=== PATIENT | female | born 1960 | race Caucasian/White ===

== ENCOUNTER 2016-10-16 17:24 | Inpatient (IN) | payer MEDICAID, OTHER ==
[~2016-10-16] VITALS: Ht 172.7 cm; Wt 67.3 kg
[~2016-10-16 17:24] MED LIST: BUSP10TA PO; TRIL600T PO; ZIPR1CAP10 PO
[2016-10-16] MEDS ORDERED: LORazepam 2 MG/ML VIAL IM ONE (17:45)
[2016-10-16] MEDS ORDERED: diphenhydrAMINE HCL 50 MG/ML VIAL IM ONE (17:45)
[2016-10-16] MEDS ORDERED: HALOPERIDOL LACTATE 5 MG/ML AMP IM ONE (17:45)
--- NOTE | 2016-10-16 17:45 | PD ---
HPI Chief Complaint: Quinn act Time Seen by Provider: 17:36 Travel History International Travel<30 days: No Contact w/Intl Traveler<30days: No Traveled to known affect area: No History of Present Illness HPI The patient is a 55-year-old female who presents emergency Department as a Quinn act. According to the police affidavit the patient has a history of schizophrenia, delayed mental development, and other psychiatric disorders. According to the police report the patient refused to take her medication stating that "it boland ". The patient is complaining of burning to the right arm in the lower extremities which is been going on 3-4 weeks. The patient is a poor historian, continues to the yells "I don't want to see a nurse ", and "get out of here ". The patient refuses to answer any questions in regards to the ongoing medical problems including the burning to the legs, burning to the right arm, and past medical history. No further information is obtainable. PFSH Past Medical History Cardiac Catheterization: No Diminished Hearing: No Past Surgical History Abdominal Aneurysm Repair: No Appendectomy: No Cholecystectomy: No Coronary Artery Bypass Graft: No Coronary Stent: No Joint Replacement: No Mastectomy: No Prostatectomy: No Tonsillectomy: No Tympanostomy Tube: No Valve Replacement: No Social History Alcohol Use: No Tobacco Use: No Substance Use: No Allergies-Medications (Allergen,Severity, Reaction): Coded Allergies: Penicillin (Verified Allergy, Severe, 10/16/16) Sulfa (Verified Allergy, Severe, 10/16/16) Bactrim (Unverified Allergy, Mild, 10/16/16) Lactose (Unverified Allergy, Mild, 10/16/16) Reported Meds & Prescriptions Reported Meds & Active Scripts Active Clindamycin (Clindamycin HCl) 300 Mg Cap 300 Mg PO Q6H 10 Days Reported Buspirone (Buspirone HCl) 10 Mg Tab 10 Mg PO TID Ziprasidone 60 Mg Cap 60 Mg PO BID Trileptal (Oxcarbazepine) 600 Mg Tab 600 Mg PO BID Review of Systems ROS Limitations: Clinical Condition, Combative, Psychotic Except as stated in HPI: all other systems reviewed are Neg Physical Exam Exam Limitations: Clinical Condition, Combative, Psychotic Narrative GENERAL: Awake, alert, somewhat psychotic 55 year-old female who refuses to answer questions. SKIN: Focused skin assessment warm/dry. The patient does have a slightly elevated blanching rash to the anterior aspect the legs bilaterally, no obvious rash to the right upper extremity. HEAD: Atraumatic. Normocephalic. EYES: Pupils equal and round. No scleral icterus. No injection or drainage. ENT: No nasal bleeding or discharge. Mucous membranes pink and moist. NECK: Trachea midline. No JVD. CARDIOVASCULAR: Regular rate and rhythm. No murmur appreciated. RESPIRATORY: No accessory muscle use. Clear to auscultation. Breath sounds equal bilaterally. GASTROINTESTINAL: Abdomen soft, non-tender, nondistended. No rebound tenderness. MUSCULOSKELETAL: No obvious deformities. No clubbing. No cyanosis. No edema. Blanching rash to the anterior aspect the legs bilaterally. The right axilla has an enlarged swollen area that is erythematous and fluctuant, tender, draining purulent drainage. Culture was obtained. NEUROLOGICAL: Awake and alert. No obvious cranial nerve deficits. Motor grossly within normal limits. Normal speech. PSYCHIATRIC: Agitated, continuously yells out "I don't want to see a nurse ", and "get away from me ". Data Data Last Documented VS Vital Signs Date Time Temp Pulse Resp B/P Pulse Ox O2 Delivery O2 Flow Rate FiO2 10/17/16 06:30 86 18 109/63 97 Room Air 10/16/16 17:47 98.6 Orders Diphenhydramine Inj (Benadryl Inj) (10/16/16 17:45) Lorazepam Inj (Ativan Inj) (10/16/16 17:45) Haloperidol Inj (Haldol Inj) (10/16/16 17:45) Complete Blood Count With Diff (10/16/16 17:38) Comprehensive Metabolic Panel (10/16/16 17:38) Urinalysis - C+S If Indicated (10/16/16 17:38) Psych Screen (10/16/16 17:38) Drug Screen, Random Urine (10/16/16 17:38) Restraints Non-Violent YOAV.Q3H (10/16/16 17:39) Clindamycin (Cleocin) (10/16/16 18:45) Wound Culture And Gram Stain (10/16/16 18:41) Labs Laboratory Tests Test 10/16/16 18:12 White Blood Count 6.8 TH/MM3 Red Blood Count 3.81 MIL/MM3 Hemoglobin 11.3 GM/DL Hematocrit 33.2 % Mean Corpuscular Volume 87.2 FL Mean Corpuscular Hemoglobin 29.6 PG Mean Corpuscular Hemoglobin 34.0 % Concent Red Cell Distribution Width 14.8 % Platelet Count 234 TH/MM3 Mean Platelet Volume 7.4 FL Neutrophils (%) (Auto) 85.0 % Lymphocytes (%) (Auto) 8.5 % Monocytes (%) (Auto) 5.7 % Eosinophils (%) (Auto) 0.2 % Basophils (%) (Auto) 0.6 % Neutrophils # (Auto) 5.7 TH/MM3 Lymphocytes # (Auto) 0.6 TH/MM3 Monocytes # (Auto) 0.4 TH/MM3 Eosinophils # (Auto) 0.0 TH/MM3 Basophils # (Auto) 0.0 TH/MM3 CBC Comment DIFF FINAL Differential Comment Sodium Level 137 MEQ/L Potassium Level 3.5 MEQ/L Chloride Level 100 MEQ/L Carbon Dioxide Level 26.4 MEQ/L Anion Gap 11 MEQ/L Blood Urea Nitrogen 14 MG/DL Creatinine 0.82 MG/DL Estimat Glomerular Filtration 72 ML/MIN Rate Random Glucose 120 MG/DL Calcium Level 8.8 MG/DL Total Bilirubin 0.4 MG/DL Aspartate Amino Transf 29 U/L (AST/SGOT) Alanine Aminotransferase 32 U/L (ALT/SGPT) Alkaline Phosphatase 128 U/L Total Protein 6.7 GM/DL Albumin 3.5 GM/DL MDM Medical Decision Making Medical Screen Exam Complete: Yes Emergency Medical Condition: Yes Medical Record Reviewed: Yes Interpretation(s) Laboratory Tests Test 10/16/16 18:12 White Blood Count 6.8 TH/MM3 Red Blood Count 3.81 MIL/MM3 Hemoglobin 11.3 GM/DL Hematocrit 33.2 % Mean Corpuscular Volume 87.2 FL Mean Corpuscular Hemoglobin 29.6 PG Mean Corpuscular Hemoglobin 34.0 % Concent Red Cell Distribution Width 14.8 % Platelet Count 234 TH/MM3 Mean Platelet Volume 7.4 FL Neutrophils (%) (Auto) 85.0 % Lymphocytes (%) (Auto) 8.5 % Monocytes (%) (Auto) 5.7 % Eosinophils (%) (Auto) 0.2 % Basophils (%) (Auto) 0.6 % Neutrophils # (Auto) 5.7 TH/MM3 Lymphocytes # (Auto) 0.6 TH/MM3 Monocytes # (Auto) 0.4 TH/MM3 Eosinophils # (Auto) 0.0 TH/MM3 Basophils # (Auto) 0.0 TH/MM3 CBC Comment DIFF FINAL Differential Comment Sodium Level 137 MEQ/L Potassium Level 3.5 MEQ/L Chloride Level 100 MEQ/L Carbon Dioxide Level 26.4 MEQ/L Anion Gap 11 MEQ/L Blood Urea Nitrogen 14 MG/DL Creatinine 0.82 MG/DL Estimat Glomerular Filtration 72 ML/MIN Rate Random Glucose 120 MG/DL Calcium Level 8.8 MG/DL Total Bilirubin 0.4 MG/DL Aspartate Amino Transf 29 U/L (AST/SGOT) Alanine Aminotransferase 32 U/L (ALT/SGPT) Alkaline Phosphatase 128 U/L Total Protein 6.7 GM/DL Albumin 3.5 GM/DL Differential Diagnosis Differential diagnosis includes psychosis, schizoaffective disorder, schizophrenia, allergic reaction, urticaria, noncompliance, mood disorder, delirium, UTI. Narrative Course The patient was uncooperative with examination and history, was yelling continuously in the room, the patient required sedation. Therefore, the patient was sedated with Ativan 2 mg IM, Haldol 5 mg IM, Benadryl 25 mg IM. Labs were then drawn and sent. The abscess to right axilla is draining, culture was obtained and sent to lab. The patient was administered clindamycin as she is allergic to Bactrim and penicillin. Psychiatric evaluation was ordered. Labs are unremarkable. Disposition as per psych. Diagnosis Primary Impression: Psychosis Qualified Code: F29 - Psychosis, unspecified psychosis type Additional Impression: Abscess of right axilla Med/Other Pt SpecificInfo: Prescription(s) given Scripts Clindamycin 300 Mg [id number] Mg PO Q6H 10 Days Ref 0 Prov:Martin Stokes MD 10/16/16 Condition: Stable Martin Stokes MD October 16, 2016 17:44
[2016-10-16 17:47] VITALS: BP 131/91; PULSE 115; RESP 30; TEMP 98.6; O2SAT 99
[2016-10-16 18:17] VITALS: PULSE 85; RESP 24; O2SAT 95
[2016-10-16] MEDS ORDERED: CLIN1CAP6 PO (18:43)
[2016-10-16] MEDS ORDERED: CLINDAMYCIN 150 MG CAP PO ONE (18:45)
[2016-10-16 18:46] LABS: AUTOMATED NEUTROPHIL # 5.7 TH/MM3 (1.8-7.7); BASOPHIL % 0.6 % (0.0-2.0); EOSINOPHIL % 0.2 % (0.0-4.0); HEMATOCRIT 33.2 % (35.0-46.0); HEMO FLAGS DIFF FINAL; LYMPH % 8.5 % (9.0-44.0); LYMPHOCYTE # 0.6 TH/MM3 (1.0-4.8); MEAN CELL VOLUME 87.2 FL (80.0-100.0); MEAN CORPUSCULAR HEMOGLOBIN 29.6 PG (27.0-34.0); MONO % 5.7 % (0.0-8.0); PLATELET COUNT 234 TH/MM3 (150-450); RED BLOOD COUNT 3.81 MIL/MM3 (4.00-5.30); RED CELL DISTRIBUTION WIDTH 14.8 % (11.6-17.2); WHITE BLOOD COUNT 6.8 TH/MM3 (4.0-11.0)
[2016-10-16 18:57] LABS: ANION GAP 11 MEQ/L (5-15); AST (GOT) 29 U/L (15-37); BICARBONATE 26.4 MEQ/L (21.0-32.0); BLOOD UREA NITROGEN 14 MG/DL (7-18); CHLORIDE 100 MEQ/L (98-107); GLOMERULAR FILTRATION RATE 72 ML/MIN (>89); POTASSIUM 3.5 MEQ/L (3.5-5.1); SODIUM (NA) 137 MEQ/L (136-145)
[2016-10-16 19:00] LABS: ALKALINE PHOSPHATASE 128 U/L (45-117); ALT (GPT) 32 U/L (10-53); TOTAL BILIRUBIN ADULT 0.4 MG/DL (0.2-1.0)
[2016-10-16 20:13] VITALS: BP 117/61; PULSE 80; RESP 22; O2SAT 10; O2SAT 100
[2016-10-17 06:30] VITALS: BP 109/63; PULSE 86; RESP 18; O2SAT 97
[2016-10-17 07:30] VITALS: BP 110/68; PULSE 77; RESP 16; O2SAT 97
[2016-10-17] MEDS ORDERED: HALOPERIDOL LACTATE 5 MG/ML AMP ONE (11:23)
[2016-10-17] MEDS ORDERED: LORazepam 2 MG/ML VIAL ONE (11:24)
[2016-10-17] MEDS ORDERED: HALOPERIDOL LACTATE 5 MG/ML AMP IM ONE (11:45)
[2016-10-17] MEDS ORDERED: LORazepam 2 MG/ML VIAL IM ONE (11:45)
[2016-10-17] MEDS ORDERED: CLINDAMYCIN 150 MG CAP PO SCH (12:00)
--- NOTE | 2016-10-17 15:45 | PD ---
History of Present Illness Chief Complaint: Psychiatric Symptoms Time Seen by Provider: 15:30 Travel History International Travel<30 Days: No Contact w/Intl Traveler<30days: No Known affected area: No Legal Status Legal Status: Quinn Act Quinn Act Signed By: Alcides Lemus History of Present Illness: History of Present Illness HPI The patient is a 55-year-old female with hx of schizoaffective disorder bipolar type and intellectual disability who presents emergency Department as a Quinn act. According to the affidavit the police were called by the patient's niece reporting that she was having a psychotic episode. When police arrived the patient was screaming and was refusing to take her medication and it is alleged that she became physically aggressive. Upon arrival to the ED she was complaining of burning to the right arm in the lower extremities which is been going on 3-4 weeks. The patient is a poor historian, continues to the yells "I don't want to see a nurse ", and "get out of here ". The patient refuses to answer any questions in regards to the ongoing medical problems including the burning to the legs, burning to the right arm, and past medical history. The patient was moved to [facility] and she was screaming very loudly " I.m not crazy you cock sucker". She continued to remain agitated but was able to deescalate with verbal intervention. She continued to presents intermittent agitation with screaming very loudly, threatening to hit staff as well as threatening to hit her head against the wall. The patient required ETO in order to prevent harm to self and others. She remains impulsive and agitated. She has not been able to provide any clinical information due to her degree of agitation. Staff have contacted her niece who reports that she has been agitated and that the neighbors have been calling the police frequently. Ms Rodriguez was last psychiatrically hospitalized at [facility] on September 20, 2016 and at that time was reporting that she wanted to stab herself. She has had previous admissions to [facility] and the last one was in June 2016 under the care of Dr. Jiang. [facility] Past Medical History Bipolar Disorder: Yes Anxiety: Yes Depression: Yes Cardiac Catheterization: No Diminished Hearing: No Immunizations Current: No Schizophrenia: Yes Tetanus Vaccination: Unknown ?: Unknown LMP: unk Past Surgical History Abdominal Aneurysm Repair: No Appendectomy: No Cholecystectomy: No Coronary Artery Bypass Graft: No Coronary Stent: No Hysterectomy: Yes Joint Replacement: No Mastectomy: No Prostatectomy: No Tonsillectomy: No Tympanostomy Tube: No Valve Replacement: No Psychiatric History Psychiatric History Hx Psychiatric Treatment: PATIENT HAS A LONG HISTORY OF SCHIZOAFFECTIVE DISORDER AND INTELLUCTUAL DISABILITY. HER LAST HOSPITALIZATION WAS ON September AND SHE WAS SENT TO THE [facility]. SHE WAS ADMITTED HERE Jun TO Jun. History of Inpatient Treatment: Yes Guns or firearms in home: No Social History Single female . Lives with her niece. Hx Alcohol Use: No (wont answer) Hx Tobacco Use: No (wont answer) Hx Substance Use: No Hx of Substance Use Treatment: No Family Psychiatric History Unable to obtain Allergies-Medications (Allergen,Severity, Reaction): Coded Allergies: Penicillin (Verified Allergy, Severe, 10/16/16) Sulfa (Verified Allergy, Severe, 10/16/16) Bactrim (Unverified Allergy, Mild, 10/16/16) Lactose (Unverified Allergy, Mild, 10/16/16) Reported Meds & Prescriptions Reported Meds & Active Scripts Active Clindamycin (Clindamycin HCl) 300 Mg Cap 300 Mg PO Q6H 10 Days Reported Buspirone (Buspirone HCl) 10 Mg Tab 10 Mg PO TID Ziprasidone 60 Mg Cap 80 Mg PO BID Trileptal (Oxcarbazepine) 600 Mg Tab 1,200 Mg PO BID Review of Systems ROS Limitations: Uncooperative, Combative Exam Alert: Yes [place]: Person, Place Mood: Agitated Affect: Labile, Other (angry) Speech: Clear (mostly threatmming and use of profanity) Eye Contact: Indirect Memory Intact: Comment (unable to test) Hallucinations: Other (unable to determine) Delusions: Yes Suicidal: Ideation (unable to determine) Homicidal: Ideation (unable to determine) Insight/Judgement poor. impaired. MDM Medical Decision Making Medical Record Reviewed: Yes Assessment/Plan 55 year old female with history of schizoaffective disorder bipolar type and intellectual disability who is under a BA. She has been agitated and threatning since her arrival. Has been refusing her medications and treatment. At this time the patient meets criteria for increased in level of care on inpatient psychiatric unit. She will remain on BA. Orders Diphenhydramine Inj (Benadryl Inj) (10/16/16 17:45) Lorazepam Inj (Ativan Inj) (10/16/16 17:45) Haloperidol Inj (Haldol Inj) (10/16/16 17:45) Complete Blood Count With Diff (10/16/16 17:38) Comprehensive Metabolic Panel (10/16/16 17:38) Urinalysis - C+S If Indicated (10/16/16 17:38) Psych Screen (10/16/16 17:38) Drug Screen, Random Urine (10/16/16 17:38) Restraints Non-Violent YOAV.Q3H (10/16/16 17:39) Clindamycin (Cleocin) (10/16/16 18:45) Wound Culture And Gram Stain (10/16/16 18:41) Diet Heart Healthy (10/17/16 Lunch) Haloperidol Inj (Haldol Inj) (10/17/16 11:23) Lorazepam Inj (Ativan Inj) (10/17/16 11:24) Lorazepam Inj (Ativan Inj) (10/17/16 11:45) Haloperidol Inj (Haldol Inj) (10/17/16 11:45) Clindamycin (Cleocin) (10/17/16 12:00) Results Vital Signs Date Time Temp Pulse Resp B/P Pulse Ox O2 Delivery O2 Flow Rate FiO2 10/17/16 07:30 77 16 110/68 97 10/17/16 06:30 86 18 109/63 97 Room Air 10/16/16 20:13 80 22 117/61 100 Room Air 10/16/16 18:17 85 24 95 Room Air 10/16/16 17:47 98.6 115 30 131/91 99 Room Air Laboratory Tests Test 10/16/16 18:12 White Blood Count 6.8 Red Blood Count 3.81 Hemoglobin 11.3 Hematocrit 33.2 Mean Corpuscular Volume 87.2 Mean Corpuscular Hemoglobin 29.6 Mean Corpuscular Hemoglobin 34.0 Concent Red Cell Distribution Width 14.8 Platelet Count 234 Mean Platelet Volume 7.4 Neutrophils (%) (Auto) 85.0 Lymphocytes (%) (Auto) 8.5 Monocytes (%) (Auto) 5.7 Eosinophils (%) (Auto) 0.2 Basophils (%) (Auto) 0.6 Neutrophils # (Auto) 5.7 Lymphocytes # (Auto) 0.6 Monocytes # (Auto) 0.4 Eosinophils # (Auto) 0.0 Basophils # (Auto) 0.0 CBC Comment DIFF FINAL Differential Comment Sodium Level 137 Potassium Level 3.5 Chloride Level 100 Carbon Dioxide Level 26.4 Anion Gap 11 Blood Urea Nitrogen 14 Creatinine 0.82 Estimat Glomerular Filtration 72 Rate Random Glucose 120 Calcium Level 8.8 Total Bilirubin 0.4 Aspartate Amino Transf 29 (AST/SGOT) Alanine Aminotransferase 32 (ALT/SGPT) Alkaline Phosphatase 128 Total Protein 6.7 Albumin 3.5 Date/Time Procedure Status Source Growth 10/16/16 18:48 Gram Stain - Final Resulted Wound Arm 10/16/16 18:48 Wound Culture - Preliminary Resulted Staph Sp Coagulase Positive Diagnosis Primary Impression: Abscess of right axilla Additional Impression: Schizoaffective disorder, bipolar type Admitting Information Admitting Physician Requests: Admit (Dr. Mccollum) Prescriptions Clindamycin 300 Mg Pod746 Mg PO Q6H 10 Days Ref 0 Prov:Martin Stokes MD 10/16/16 Condition: Stable Problem Qualifiers Jasmyn Ventura October 17, 2016 15:45
[2016-10-17] MEDS ORDERED: ALUMINUM/MAGNESIUM/SIMETH 30 ML CUP PO PRN (16:00)
[2016-10-17] MEDS ORDERED: MAGNESIUM HYDROXIDE SUSP 30 ML CUP PO PRN (16:00)
[2016-10-17 17:22] VITALS: BP 133/63; PULSE 62; RESP 18; TEMP 97.9
[2016-10-17] MEDS: busPIRone HCL 10 MG TAB PO SCH ×2 (18:30→18:33)
[2016-10-17] MEDS: CLINDAMYCIN 150 MG CAP PO SCH ×3 (18:30→22:00)
[2016-10-17] MEDS: OXcarbazepine 600 MG TAB PO SCH (20:39)
[2016-10-17] MEDS: ZIPRASIDONE HCL 80 MG CAP PO SCH (20:39)
[2016-10-18] MEDS: CLINDAMYCIN 150 MG CAP PO SCH ×4 (04:00→21:16)
[2016-10-18 06:32] VITALS: BP 125/58; PULSE 59; RESP 16; TEMP 97.6; O2SAT 99
[2016-10-18] MEDS: ACETAMINOPHEN 325 MG TAB PO PRN ×2 (08:20→21:20)
[2016-10-18] MEDS: busPIRone HCL 10 MG TAB PO SCH ×3 (09:01→18:06)
[2016-10-18] MEDS: ZIPRASIDONE HCL 80 MG CAP PO SCH ×2 (09:02→21:16)
[2016-10-18] MEDS: OXcarbazepine 600 MG TAB PO SCH ×2 (09:02→21:16)
--- NOTE | 2016-10-18 09:04 | HHI.HP ---
Provisional Diagnosis Admission Date October 17, 2016 at 15:59 Cisco I. 1. Adjustment disorder with disturbance of emotions and conduct Cisco II. 1. Intellectual disability Cisco V. GAF is 35 presently Certification of Person's Competence To Provide Express and Informed Consent I have personally examined Yue Rodriguez , a person being served at [facility] on, October 18, 2016 09:04. Express and informed consent means consent voluntarily given in writing, by a competent person, after sufficient explanation and disclosure of the subject matter involved to enable the person to make a knowing and willful decision without any element of force, fraud, deceit, duress, or other form of constraint or coercion. This person is 18 years of age or older, is not now known to be incompetent to consent to treatment with a guardian advocate, and does not have a health care surrogate or proxy currently making medical treatment decisions. I have found this person to be one of the following: [] Competent to provide express and informed consent, as defined above, for voluntary admission to this facility and is competent to provide express and informed consent for treatment. He/she has the consistent capacity to make well reasoned, willful, and knowing decisions concerning his or her medical or mental health treatment. The person fully and consistently understands the purpose of the admission for examination/placement and is fully capable of personally exercising all rights assured [place] [x] Incompetent to provide express and informed consent to voluntary admission, and this is incompetent to provide express and informed consent to treatment. The person must be transferred to involuntary status and a petition for a guardian advocate filed with the Circuit Court. [] Refusing to provide express and informed consent to voluntary admission but is competent to provide express and informed consent for treatment. The person must be discharged or transferred to involuntary status. Form shall be completed within 24 hours of a person's arrival at the receiving facility and filed in the clinical record of each person: 1. Admitted on a voluntary basis 2. Permitted to provide express and informed consent to his/her own treatment 3. Allowed to transfer from involuntary to voluntary status 4. Prior to permitting a person to consent to his or her own treatment after having been previously found incompetent to consent to treatment. History of Present Illness Capacity: Lacks Capacity HPI Ms. Rodriguez is a 55-year-old female with a history of behavioral disturbance in the setting of intellectual disability who presents under a Quinn act from law enforcement alleging medication nonadherence and violent behavior. Reviewing the electronic medical record, I note that the patient was admitted most recently, chiefly under my care, in June of this year. Patient seen and examined with counselor and nurse. Chart reviewed. Case discussed with nursing staff who reports that the patient slept overnight. On my examination this morning, I find the patient initially sleeping. Upon awakening, she presents as quite dramatic and childlike. She says "everything hurts" including her stomach, back and legs. She becomes quite loud and agitated on this point but eventually can be consoled and provides a little bit of history. Affect is generally dysphoric. She denies any suicidal or homicidal thoughts. She denies any audiovisual hallucinations. She denies any issues with low mood, anger or anxiety. She denies any nausea or dysuria. Psychiatric interview is somewhat limited because of her intellectual disability in acute distress. Past psychiatric history: Patient maintains that she has been adherent with her psychotropic medications. In addition to the above diagnoses, she also has a history of schizoaffective disorder, although this may have been diagnosed to Ensure the patient's behavioral disturbance in the setting of her intellectual disability. She sees "some lady" for psychiatric care. She denies any psychiatric admissions since coming here in June. She denies any history of suicide attempts. Family history: Patient denies any family history of mental illness. Chemical dependency history: Patient denies any abuse of drugs or alcohol. Social history: Patient lives with her niece Sun. She is unsure of her level of education. She is single with no children. She denies any legal issues. I did leave a voicemail for patient's niece, Sun Rodriguez, requesting a call back. Review of Systems ROS Limitations: Poor Historian Except as stated in HPI: all other systems reviewed are Neg Past Psych History Psychological trauma history No reported trauma history Violence risk - others (6 mos) Indeterminate. Violence alleged in Quinn act. Patient somewhat agitated now. Violence risk - self (6 mos) Indeterminate. Substance Abuse History Drugs/Alcohol past 12 months See above Past Family Social History Coded Allergies: Penicillin (Verified Allergy, Severe, 10/16/16) Sulfa (Verified Allergy, Severe, 10/16/16) Bactrim (Unverified Allergy, Mild, 10/16/16) Lactose (Unverified Allergy, Mild, 10/16/16) Past Medical History See electronic medical record Active Scripts Clindamycin 300 Mg [id number] Mg PO Q6H 10 Days Ref 0 Prov:Martin Stokes MD 10/16/16 Reported Medications Buspirone 10 Mg Tab10 Mg PO TID Ref 0 10/08/16 Ziprasidone 60 Mg Cap80 Mg PO BID #60 CAP Ref 0 10/08/16 Oxcarbazepine (Trileptal)600 Mg Tab1,200 Mg PO BID #60 TAB Ref 0 10/08/16 Current Medications Medications (Trade) Dose Ordered Sig/Eloise Route Start Time Stop Time Status Last Admin (Tylenol) 650 mg Q4H PRN PO 10/17/16 16:00 10/18/16 08:20 (Milk Of Magnesia Liq) 30 ml DAILY PRN PO 10/17/16 16:00 (Mag-Al Plus Susp Liq) 30 ml Q6H PRN PO 10/17/16 16:00 10/18/16 08:19 (Buspar) 10 mg TID PO 10/17/16 18:00 10/18/16 09:01 (Cleocin) 300 mg Q6H PO 10/17/16 16:00 10/17/16 22:00 (Trileptal) 1,200 mg BID PO 10/17/16 21:00 10/18/16 09:02 (Geodon) 80 mg BID PO 10/17/16 21:00 10/18/16 09:02 Family History See above Social History See above Patient's Strengths (min. 2) In monitored setting. Verbally fluent. Physical Exam Physical exam completed by ED provider. A my examination today, patient appears to be in no severe physical distress. She is up and walking around the unit with a steady gait. No motor abnormalities noticed. Labs and vital signs reviewed: Vital Signs Vital Signs Date Time Temp Pulse Resp B/P Pulse Ox O2 Delivery O2 Flow Rate FiO2 10/18/16 09:02 18 10/18/16 06:32 97.6 59 125/58 99 10/17/16 06:30 Room Air Lab Results Item Value Date Time White Blood Count 6.8 TH/MM3 10/16/16 1812 Hemoglobin 11.3 GM/DL L 10/16/16 181 Platelet Count 234 TH/MM3 10/16/16 181 Sodium Level 137 MEQ/L 10/16/16 181 Potassium Level 3.5 MEQ/L 10/16/16 181 Chloride Level 100 MEQ/L 10/16/16 181 Carbon Dioxide Level 26.4 MEQ/L 10/16/16 181 Blood Urea Nitrogen 14 MG/DL 10/16/16 181 Creatinine 0.82 MG/DL 10/16/16 181 Random Glucose 120 MG/DL H 10/16/16 1812 Aspartate Amino Transf (AST/SGOT) 29 U/L 10/16/16 181 Alanine Aminotransferase (ALT/SGPT) 32 U/L 10/16/16 181 Alkaline Phosphatase 128 U/L H 10/16/161811 Anemia is improved versus historical baseline. Mental Status Examination Patient is in hospital gown. She is somewhat disheveled. She is awake and alert and oriented to person and hospital. No motor abnormalities noted. Speech is somewhat rambling. Language and fund of knowledge seem reduced. Mood is dysphoric and affect is restricted. Thought process perseverative on physical distress. No al delusions. Denies audiovisual hallucinations. Denies suicidal or homicidal ideation. Insight and judgment are poor. Assessment & Plan Problem List: (1) Adjustment disorder ICD Code: F43.20 (2) Intellectual disability ICD Code: F79 Assessment & Plan This is a 55-year-old female with psychiatric history as detailed above who presents under a Quinn act. On my evaluation today, the patient presents as quite childlike and irritable. She articulates physical complaints for which I will consult the hospitalist. Patient has chronic issues related to behavioral disturbance in the setting of intellectual disability. In light of her ongoing issues with agitation, I will admit the patient to the inpatient psychiatric unit for safety, observation and stabilization. Admit inpatient. Involuntary status. I've completed first opinion. Consult for second opinion. Request healthcare surrogate and guardian advocate. Medications appear to have changed significantly since she was discharged from the inpatient psychiatric unit last time. She is now on BuSpar and her Zyprexa has been discontinued. Her Trileptal has also been titrated. I will continue psychotropics as ordered: Trileptal 1200 mg twice daily, Geodon 80 mg twice daily, and BuSpar 10 mg 3 times daily. The patient does have an abscess in her right axilla for which I will continue clindamycin. Haldol as needed for agitation, Ativan as needed for anxiety, Cogentin as needed for EPS, Ambien as needed for sleep. Consult to the hospitalist. Vitals every shift. Counselor to see and obtain collateral. Disposition planning. Estimated length of stay: 7-9 days. Discharge Planning Pending psychiatric stabilization. Request HC Surrog/Guard Advoc?: Yes Problem Qualifiers (1) Adjustment disorder: Qualified Code: F43.25 - Adjustment disorder with mixed disturbance of emotions and conduct Igor Lawrence MD October 18, 2016 09:04
[2016-10-18] MEDS ORDERED: HALOPERIDOL LACTATE 5 MG/ML AMP IM PRN (09:45)
[2016-10-18] MEDS ORDERED: BENZTROPINE MESYLATE 2 MG/2 ML VIAL IM PRN (09:45)
[2016-10-18] MEDS ORDERED: HALOPERIDOL 5 MG TAB PO PRN (09:45)
[2016-10-18] MEDS ORDERED: ZOLPIDEM TARTRATE 5 MG TAB PO PRN (09:45)
[2016-10-18] MEDS ORDERED: LORazepam 1 MG TAB PO PRN (09:45)
[2016-10-18] MEDS ORDERED: BENZTROPINE MESYLATE 1 MG TAB PO PRN (09:45)
[2016-10-18] MEDS ORDERED: LORazepam 2 MG/ML VIAL IM PRN (09:45)
[2016-10-18 10:13] LABS: ANION GAP 10 MEQ/L (5-15); BICARBONATE 27.3 MEQ/L (21.0-32.0); BLOOD UREA NITROGEN 13 MG/DL (7-18); CHLORIDE 96 MEQ/L (98-107); GLOMERULAR FILTRATION RATE 103 ML/MIN (>89); LDL CHOLESTEROL 68 MG/DL (0-99); SODIUM (NA) 133 MEQ/L (136-145)
[2016-10-18 12:21] LABS: HEMOGLOBIN A1a 1.2 %; HEMOGLOBIN A1b 1.4 %; HEMOGLOBIN Ao 85.9 %; HEMOGLOBIN LA1C 1.9 %; HEMOGLOBIN P3 3.7 %
--- NOTE | 2016-10-18 14:30 | PD.CONS ---
HPI Service [facility] Hospitalists Consult Requested By Psychiatric service Reason for Consult Medical management Primary Care Physician Unknown Diagnoses: History of Present Illness This is a 55-year-old female with a past medical history significant for schizoaffective disorder bipolar type and intellectual disability who was brought to the emergency room under Quinn act due to psychotic episode and was admitted to the psychiatric unit. Hospitalist services have been requested for medical management. Patient seen and examined today. Patient reports 6 week history of tender swollen mass in right axilla that she states nothing has helped. In the ED, wound culture was obtained which was positive for MRSA sensitive to clindamycin. Patient was put on clindamycin in the ED but has refused that medication. Patient also complains of stomach pain and back pain for the past week. She denies any associated fever, chills, nausea, vomiting, diarrhea or constipation. Patient also denies any chest pain or shortness of breath. Review of Systems Except as stated in HPI: all other systems reviewed are Neg Past Family Social History Allergies: Coded Allergies: Penicillin (Verified Allergy, Severe, 10/16/16) Sulfa (Verified Allergy, Severe, 10/16/16) Bactrim (Unverified Allergy, Mild, 10/16/16) Lactose (Unverified Allergy, Mild, 10/16/16) Past Medical History Schizoaffective disorder bipolar type Intellectual disability Depression Anxiety Diabetes, diet-controlled Past Surgical History Gallstone removal Hysterectomy Reported Medications Clindamycin 300 Mg [id number] Mg PO Q6H 10 Days Ref 0 Prov:Martin Stokes MD Buspirone 10 Mg Tab10 Mg PO TID Ref 0 10/08/16 Ziprasidone 60 Mg Cap80 Mg PO BID #60 CAP Ref 0 10/08/16 Oxcarbazepine (Trileptal)600 Mg Tab1,200 Mg PO BID #60 TAB Ref 0 10/08/16 Active Ordered Medications Current Medications Medications (Trade) Dose Ordered Sig/Eloise Route Start Time Stop Time Status Last Admin (Tylenol) 650 mg Q4H PRN PO 10/17/16 16:00 10/18/16 08:20 (Milk Of Magnesia Liq) 30 ml DAILY PRN PO 10/17/16 16:00 (Mag-Al Plus Susp Liq) 30 ml Q6H PRN PO 10/17/16 16:00 10/18/16 08:19 (Buspar) 10 mg TID PO 10/17/16 18:00 10/18/16 14:12 (Cleocin) 300 mg Q6H PO 10/17/16 16:00 10/18/16 14:12 (Trileptal) 1,200 mg BID PO 10/17/16 21:00 10/18/16 09:02 (Geodon) 80 mg BID PO 10/17/16 21:00 10/18/16 09:02 (Haldol) 5 mg Q6H PRN PO 10/18/16 09:45 (Haldol Inj) 5 mg Q6H PRN IM 10/18/16 09:45 (Ativan) 1 mg Q6H PRN PO 10/18/16 09:45 (Ativan Inj) 1 mg Q6H PRN IM 10/18/16 09:45 (Cogentin) 1 mg Q12HR PRN PO 10/18/16 09:45 (Cogentin Inj) 1 mg Q12HR PRN IM 10/18/16 09:45 (Ambien) 5 mg HS PRN PO 10/18/16 09:45 Family History Mother, , [facility] Social History Patient denies any tobacco use, alcohol consumption or illicit drug use. Patient resides with her niece. Physical Exam Vital Signs Vital Signs Date Time Temp Pulse Resp B/P Pulse Ox O2 Delivery O2 Flow Rate FiO2 10/18/16 09:02 18 10/18/16 06:32 97.6 59 16 125/58 99 10/17/16 17:22 97.9 62 18 133/63 Physical Exam GENERAL: This is a well-nourished, well-developed patient, in no apparent distress. Intellectual disability. SKIN: (+)tender raised mass in right axilla. Scant amount of drainage appreciated. Cool and dry. HEAD: Atraumatic. Normocephalic. No temporal or scalp tenderness. EYES: Pupils equal round and reactive. Extraocular motions intact. No scleral icterus. No injection or drainage. ENT: Nose without bleeding, purulent drainage or septal hematoma. NECK: Trachea midline. Supple, nontender, no meningeal signs. CARDIOVASCULAR: Regular rate and rhythm without murmurs, gallops, or rubs. RESPIRATORY: Clear to auscultation. Breath sounds equal bilaterally. No wheezes , rales, or rhonchi. GASTROINTESTINAL: Abdomen soft, non-tender, nondistended. No hepato-splenomegaly , or palpable masses. No guarding. MUSCULOSKELETAL: Extremities without clubbing, cyanosis, or edema. No joint tenderness, effusion, or edema noted. No calf tenderness. NEUROLOGICAL: Awake and alert. Able to move all extremities. No focal neurologic findings appreciated. Laboratory Laboratory Tests Test 10/18/16 09:00 Sodium Level 133 Potassium Level 4.0 Chloride Level 96 Carbon Dioxide Level 27.3 Anion Gap 10 Blood Urea Nitrogen 13 Creatinine 0.60 Estimat Glomerular Filtration 103 Rate Random Glucose 90 Calcium Level 8.6 Triglycerides Level 63 Cholesterol Level 139 LDL Cholesterol 68 HDL Cholesterol 58.0 Cholesterol/HDL Ratio 2.39 Date/Time Procedure Status Source Growth 10/16/16 18:48 Gram Stain - Final Complete Wound Arm 10/16/16 18:48 Wound Culture - Final Complete S. Aureus Mrsa Result Diagram: 10/16/16 1812 10/18/16 0900 Assessment and Plan Assessment and Plan 55-year-old female with a past medical history significant for schizoaffective disorder bipolar type and intellectual disability who was brought to the emergency room under Quinn act due to psychotic episode and was admitted to the psychiatric unit. Hospitalist services have been requested for medical management. //Schizoaffective disorder bipolar type with acute psychotic episode - Management per psychiatric team //Abscess right axilla, MRSA - Discussed with patient taking her antibiotic medication but patient continues to refuse and just reiterates over and over that nothing works. - Continue clindamycin for 10 day course. Add Probiotic BID. - Patient is agreeable to trying something topical - Mupirocin 2% cream and Lidocaine gel ordered - Monitor //Abdominal and back pain - previous UA was unremarkable except for moderate blood - repeat UA - Chemistry panel reviewed and is unremarkable except for mildly decreased sodium of 133 and slightly elevated Alk phos 128 - will consider imaging studies if patient remains symptomatic - Unable to elicit any tenderness on examination today. Patient is afebrile. Patient has witnessed eating on and off the bed as well as walking around the unit without any noticeable difficulty. - Will continue to monitor. //Anemia, normocytic - mild - repeat CBC to monitor //Hyponatremia - mild - am labs to monitor //DVT prophylaxis - patient is ambulatory Written by Lindsay Duff PA-C acting as scribe for Dr. Powell on 10/18/16 at 14 :30. This note was transcribed by scribe Lindsay Duff PA-C. I, Dr. Walter Powell personally performed the history, physical exam, and medical decision making; and confirmed the accuracy of the information in the transcribed note. Authenticated by Dr. Walter Powell on 10/18/16 at 23:27. Lindsay Duff October 18, 2016 14:30 Ilya Powell DO October 18, 2016 23:29
[2016-10-18] MEDS ORDERED: LIDOCAINE 2% JELLY 30 ML TUBE TOPICAL PRN (14:45)
[2016-10-18 18:02] VITALS: BP 132/63; PULSE 69; RESP 17; TEMP 97.3; O2SAT 98
[2016-10-18] MEDS: LACTOBACILLUS ACIDOPHILUS TAB PO SCH (21:16)
[2016-10-18] MEDS: MUPIROCIN 2% CREAM 15 GM TOPICAL SCH (21:16)
[2016-10-19] MEDS: CLINDAMYCIN 150 MG CAP PO SCH ×2 (04:00→08:06)
[2016-10-19 05:58] VITALS: BP 114/60; PULSE 65; RESP 18; TEMP 98.1; O2SAT 98
[2016-10-19] MEDS: busPIRone HCL 10 MG TAB PO SCH (08:05)
[2016-10-19] MEDS: ZIPRASIDONE HCL 80 MG CAP PO SCH (08:05)
[2016-10-19] MEDS: MUPIROCIN 2% CREAM 15 GM TOPICAL SCH (08:06)
[2016-10-19] MEDS: OXcarbazepine 600 MG TAB PO SCH (08:06)
[2016-10-19] MEDS: ACETAMINOPHEN 325 MG TAB PO PRN (08:20)
[2016-10-19] MEDS: LACTOBACILLUS ACIDOPHILUS TAB PO SCH (08:53)
[2016-10-19 09:10] VITALS: RESP 18
[2016-10-19 09:10] LABS: AUTOMATED NEUTROPHIL # 2.4 TH/MM3 (1.8-7.7); BASOPHIL % 1.3 % (0.0-2.0); EOSINOPHIL # 0.2 TH/MM3 (0-0.4); EOSINOPHIL % 5.2 % (0.0-4.0); HEMATOCRIT 35.4 % (35.0-46.0); HEMO FLAGS DIFF FINAL; LYMPH % 17.3 % (9.0-44.0); LYMPHOCYTE # 0.6 TH/MM3 (1.0-4.8); MEAN CELL VOLUME 87.1 FL (80.0-100.0); MEAN CORPUSCULAR HEMOGLOBIN 28.8 PG (27.0-34.0); MEAN CORPUSCULAR HGB CONC 33.1 % (32.0-36.0); MONO % 5.8 % (0.0-8.0); NEUT % 70.4 % (16.0-70.0); PLATELET COUNT 272 TH/MM3 (150-450); RED BLOOD COUNT 4.07 MIL/MM3 (4.00-5.30); RED CELL DISTRIBUTION WIDTH 14.2 % (11.6-17.2); WHITE BLOOD COUNT 3.3 TH/MM3 (4.0-11.0)
[2016-10-19 09:44] LABS: BICARBONATE 26.7 MEQ/L (21.0-32.0); POTASSIUM 4.5 MEQ/L (3.5-5.1)
[2016-10-19] MEDS ORDERED: SODIUM CHLOR 0.9% 1000 ML INJ 1,000 ML IV SCH ×2 (10:45→12:00)
[2016-10-19] MEDS ORDERED: ACETAMINOPHEN 325 MG TAB PO PRN (10:45)
[2016-10-19] MEDS ORDERED: NALOXONE HCL 0.4 MG/ML AMP IV PRN (10:45)
[2016-10-19] MEDS ORDERED: SODIUM CHLORIDE 0.9% FLUSH 10 ML FLUSH IV FLUSH PRN (10:45)
[2016-10-19] MEDS ORDERED: ONDANSETRON HCL 4 MG/2 ML VIAL IVP PRN (10:45)
[2016-10-19] MEDS ORDERED: ENOXAPARIN SODIUM 40 MG/0.4 ML SYRINGE SQ SCH (11:00)
[2016-10-19] MEDS ORDERED: VANCOMYCIN INJ 1,000 MG in SODIUM CHLOR 0.9% 250 ML INJ 250 ML IV SCH (11:15)
[2016-10-19] MEDS ORDERED: Vancomycin Consult Pharmacy 1 EA OTHER SCH (11:15)
--- NOTE | 2016-10-19 11:41 | HHI.DS ---
Psychiatry Discharge Summary Inpatient Psychiatric care?: Yes Advance Directive: No Reason Not Provided: Due to Patient Condition Mental Health AdvanceDirective: No Health Care Proxy: No Admission Admission Date October 17, 2016 at 15:59 Admission Diagnosis: (1) Adjustment disorder ICD Code: F43.20 (2) Intellectual disability ICD Code: F79 Brief History Ms. Rodriguez is a 55-year-old female with a history of behavioral disturbance in the setting of intellectual disability who presents under a Quinn act from law enforcement alleging medication nonadherence and violent behavior. Reviewing the electronic medical record, I note that the patient was admitted most recently, chiefly under my care, in June of this year. Patient seen and examined with counselor and nurse. Chart reviewed. Case discussed with nursing staff who reports that the patient slept overnight. On my examination this morning, I find the patient initially sleeping. Upon awakening, she presents as quite dramatic and childlike. She says "everything hurts" including her stomach, back and legs. She becomes quite loud and agitated on this point but eventually can be consoled and provides a little bit of history. Affect is generally dysphoric. She denies any suicidal or homicidal thoughts. She denies any audiovisual hallucinations. She denies any issues with low mood, anger or anxiety. She denies any nausea or dysuria. Psychiatric interview is somewhat limited because of her intellectual disability in acute distress. Past psychiatric history: Patient maintains that she has been adherent with her psychotropic medications. In addition to the above diagnoses, she also has a history of schizoaffective disorder, although this may have been diagnosed to Ensure the patient's behavioral disturbance in the setting of her intellectual disability. She sees "some lady" for psychiatric care. She denies any psychiatric admissions since coming here in June. She denies any history of suicide attempts. Family history: Patient denies any family history of mental illness. Chemical dependency history: Patient denies any abuse of drugs or alcohol. Social history: Patient lives with her niece Sun. She is unsure of her level of education. She is single with no children. She denies any legal issues. I did leave a voicemail for patient's niece, Sun Rodriguez, requesting a call back. Tobacco Use In Past 30 Days: Refused To Answer Alcohol Use: Never Hospital Course Patient was admitted to a locked, inpatient psychiatric unit. Appropriate precautions were in place throughout patient's hospital stay. Patient was seen and examined on the unit by psychiatry. A general medical consultation was obtained. Patient developed nausea and vomiting and was found to be significantly hyponatremic at the beginning of her hospital stay, and the hospitalist sap consultant recommended transfer to the medical floor for further management of this issue. Patient discharged from inpatient psychiatry in order to transfer to the medical floor. Results Blood Pressure 114 / 60 Vital Signs Date Time Temp Pulse Resp B/P Pulse Ox O2 Delivery O2 Flow Rate FiO2 10/19/16 09:10 18 10/19/16 05:58 98.1 65 114/60 98 10/17/16 06:30 Room Air Laboratory Tests Test 10/16/16 10/18/16 10/19/16 18:12 09:00 08:32 Estimat Glomerular Filtration 72 ML/MIN (>89) Rate Random Glucose 120 MG/DL 110 MG/DL (74-106) (74-106) Alkaline Phosphatase 128 U/L (45-117) Red Blood Count 3.81 MIL/MM3 (4.00-5.30) Hemoglobin 11.3 GM/DL (11.6-15.3) Hematocrit 33.2 % (35.0-46.0) Neutrophils (%) (Auto) 85.0 % 70.4 % (16.0-70.0) (16.0-70.0) Lymphocytes (%) (Auto) 8.5 % (9.0-44.0) Lymphocytes # (Auto) 0.6 TH/MM3 0.6 TH/MM3 (1.0-4.8) (1.0-4.8) Sodium Level 133 MEQ/L 124 MEQ/L (136-145) (136-145) Chloride Level 96 MEQ/L 88 MEQ/L (98-107) (98-107) White Blood Count 3.3 TH/MM3 (4.0-11.0) Eosinophils (%) (Auto) 5.2 % (0.0-4.0) Calcium Level 8.4 MG/DL (8.5-10.1) Laboratory Results Test 10/18/16 09:00 Hemoglobin A1c 5.5 % (4.3-6.0) Triglycerides Level 63 MG/DL (42-150) Cholesterol Level 139 MG/DL (120-200) LDL Cholesterol 68 MG/DL (0-99) HDL Cholesterol 58.0 MG/DL (40.0-60.0) Summary of Procedures None done Imaging None done Pending results at discharge: No Medications # of Antipsychotic meds at D/C: 1 Approp Antipsych med options 1 - Minimum of three failed multiple trials of monotherapy. 2 - Documented plan to taper to monotherapy due to previous use of multiple meds OR cross-taper in progress at D/C. 3 - Documentation of augmentation of Clozapine. 4 - Justification other than those listed in allowable values 1-3, document here : Discharge Discharge Date: October 19, 2016 Discharge Diagnosis: (1) Adjustment disorder Diagnosis: Principal ICD Code: F43.20 (2) Intellectual disability Diagnosis: Secondary ICD Code: F79 Mental Status Exam at Disch See progress note from 10/19 for MSE. Pt Condition on Discharge: Guarded Discharge Disposition: Disch to Another Hospital Discharge Instructions Diet Instructions: As Tolerated, No Restrictions Activities you can perform: Weight Bearing as Windy Scheduled Appointment: transfer to medical floor Discharge Time <= 30 minutes Discharge/Advance Care Plan Health Problems: (1) Adjustment disorder (2) Intellectual disability Goals to promote your health * To prevent worsening of your condition and complications * To maintain your health at the optimal level Directions to meet your goals Take your medications as prescribed Follow your dietary instruction Follow activity as directed Keep your appointments as scheduled Take your immunizations and boosters as scheduled If your symptoms worsen call your PCP, if no PCP go to Urgent Care Center or Emergency Room For 06/01 questions related to your inpatient stay or results of tests pending at discharge, please contact Dr. Igor Lawrence at Smoking is Dangerous to Your Health. Avoid second hand smoking Problem Qualifiers (1) Adjustment disorder: Qualified Code: F43.25 - Adjustment disorder with mixed disturbance of emotions and conduct Igor Lawrence MD October 19, 2016 11:41
[2016-10-19] MEDS ORDERED: VANCOMYCIN 1,500 MG/NS 500 ML IV SCH ×2 (13:00)
--- NOTE | 2016-10-19 15:56 | HHI.PYPN ---
Subjective Remarks This is a request for second opinion. Patient was seen, admission note reviewed. Patient was admitted for violent and disorganized behavior. She was admitted to psychiatry and subsequently transferred to medicine for hyponatremia. She has been compliant with her medications. Per nursing, no behavioral outbursts Objective Alert: Yes [place]: Person, Place Mood: Anxious Affect: Blunted Memory Intact: Comment (unable to test) Hallucinations: Auditory (denies) Delusions: Yes Delusion Type: Other (none elicited) Suicidal: Ideation (denies) Homicidal: Ideation (denies) Insight/Judgment poor Labs Test 10/19/16 08:32 White Blood Count 3.3 TH/MM3 Red Blood Count 4.07 MIL/MM3 Hemoglobin 11.7 GM/DL Hematocrit 35.4 % Mean Corpuscular Volume 87.1 FL Mean Corpuscular Hemoglobin 28.8 PG Mean Corpuscular Hemoglobin 33.1 % Concent Red Cell Distribution Width 14.2 % Platelet Count 272 TH/MM3 Mean Platelet Volume 7.2 FL Neutrophils (%) (Auto) 70.4 % Lymphocytes (%) (Auto) 17.3 % Monocytes (%) (Auto) 5.8 % Eosinophils (%) (Auto) 5.2 % Basophils (%) (Auto) 1.3 % Neutrophils # (Auto) 2.4 TH/MM3 Lymphocytes # (Auto) 0.6 TH/MM3 Monocytes # (Auto) 0.2 TH/MM3 Eosinophils # (Auto) 0.2 TH/MM3 Basophils # (Auto) 0.0 TH/MM3 CBC Comment DIFF FINAL Differential Comment Sodium Level 124 MEQ/L Potassium Level 4.5 MEQ/L Chloride Level 88 MEQ/L Carbon Dioxide Level 26.7 MEQ/L Anion Gap 9 MEQ/L Blood Urea Nitrogen 9 MG/DL Creatinine 0.57 MG/DL Estimat Glomerular Filtration 109 ML/MIN Rate Random Glucose 110 MG/DL Calcium Level 8.4 MG/DL Vitamin B12 Level 541 PG/ML Folate 15.1 NG/ML Date/Time Procedure Status Source Growth 10/16/16 18:48 Gram Stain - Final Complete Wound Arm 10/16/16 18:48 Wound Culture - Final Complete S. Aureus Mrsa Vitals/IOs Vital Signs Date Time Temp Pulse Resp B/P Pulse Ox O2 Delivery O2 Flow Rate FiO2 10/19/16 09:10 18 10/19/16 05:58 98.1 65 114/60 98 10/17/16 06:30 Room Air Assessment & Plan Problem List: (1) Adjustment disorder ICD Code: F43.20 (2) Intellectual disability ICD Code: F79 Assessment & Plan I agree with the first opinion to continue petition. Criteria include disorganized and combative behavior Justification for Cont. Inpt. Patient will decompensate in a less restrictive setting Request HC Surrog/Guard Advoc?: Yes Problem Qualifiers (1) Adjustment disorder: Qualified Code: F43.25 - Adjustment disorder with mixed disturbance of emotions and conduct Josesito Salgado DO October 19, 2016 15:56
[2016-10-19] MEDS ORDERED: SODIUM CHLORIDE 0.9% FLUSH 10 ML FLUSH IV FLUSH SCH (21:00)
[2016-10-21] MEDS ORDERED: PHARMACY ORDERED LAB ONE (00:45)
== END 2016-10-19 12:45 | disposition short-term general hospital (02) | DRG 882 ==
LOC: NEPE 17:24 → NEDA 10-17 15:59 → H270 10-17 16:45
PROVIDERS: ADMIT Psychiatry & Neurology Psychiatry; ATTEND Psychiatry & Neurology Psychiatry
DX: F43.25 Adjustment disorder with mixed disturbance of emotions and conduct (principal); E87.1 Hypo-osmolality and hyponatremia; F25.0 Schizoaffective disorder, bipolar type; E11.9 Type 2 diabetes mellitus without complications; L02.411 Cutaneous abscess of right axilla; D64.9 Anemia, unspecified; F79 Unspecified intellectual disabilities; Z91.14 Patient's other noncompliance with medication regimen
CPT/HCPCS: 80048; 80053; 80061; 82607; 82746; 83036; 85025; 86403; 87070; 87186; 87205; 96372; J1200; J1630; J2060

== ENCOUNTER 2016-10-19 13:00 | Inpatient (IN) | payer OTHER ==
[~2016-10-19] VITALS: Ht 165.1 cm; Wt 68.5 kg
[2016-10-19 13:00] VITALS: BP 150/72; PULSE 80; RESP 16; TEMP 97.6; O2SAT 100
[~2016-10-19 13:00] MED LIST changes: +CLIN1CAP6 PO
[2016-10-19] MEDS ORDERED: SODIUM CHLOR 0.9% 1000 ML INJ 1,000 ML IV SCH (13:54)
[2016-10-19] MEDS ORDERED: VANCOMYCIN INJ 1,000 MG in SODIUM CHLOR 0.9% 250 ML INJ 250 ML IV SCH (14:00)
[2016-10-19] MEDS ORDERED: Vancomycin Consult Pharmacy 1 EA OTHER SCH (14:00)
[2016-10-19] MEDS ORDERED: SODIUM CHLORIDE 0.9% FLUSH 10 ML FLUSH IV FLUSH PRN (14:00)
[2016-10-19] MEDS ORDERED: NALOXONE HCL 0.4 MG/ML AMP IV PRN (14:00)
--- NOTE | 2016-10-19 14:28 | HHI.HP ---
HPI Service [facility] Primary Care Physician Nessa Huber MD Admission Diagnosis Diagnoses: Chief Complaint: Hyponatremia Nausea/vomiting Abdominal pain Travel History International Travel<30 Days: No Contact w/Intl Traveler <30 Da: No Traveled to Known Affected Are: No History of Present Illness This is a 55-year-old female with a past medical history significant for schizoaffective disorder bipolar type and intellectual disability who was brought to the emergency room under Quinn act due to psychotic episode and was admitted to the psychiatric unit. Hospitalist services were requested for medical management. Patient reports 6 week history of tender swollen mass in right axilla that she states nothing has helped. In the ED, wound culture was obtained which was positive for MRSA and was started on Clindamycin which cultures showed sensitivity to. Patient complains of abdominal pain with nausea and vomiting. Per nursing staff, patient vomited 2 times today as well as twice yesterday. She denies any associated fever, chills, nausea, vomiting, diarrhea or constipation. Patient also denies any chest pain or shortness of breath. Labs today were significant for a critical sodium level of 124. She was also noted to have a drop in white count to 3.3 today. Patient is to be discharged from psychiatry admitted to medical floor. Review of Systems Except as stated in HPI: all other systems reviewed are Neg Past Family Social History Past Medical History Schizoaffective disorder bipolar type Intellectual disability Depression Anxiety Diabetes, diet-controlled Past Surgical History Gallstone removal Hysterectomy Reported Medications Clindamycin 300 Mg [id number] Mg PO Q6H 10 Days Ref 0 Prov:Martin Stokes MD Buspirone 10 Mg Tab10 Mg PO TID Ref 0 10/08/16 Ziprasidone 60 Mg Cap80 Mg PO BID #60 CAP Ref 0 10/08/16 Oxcarbazepine (Trileptal)600 Mg Tab1,200 Mg PO BID #60 TAB Ref 0 10/08/16 Allergies: Coded Allergies: Penicillin (Verified Allergy, Severe, 10/16/16) Sulfa (Verified Allergy, Severe, 10/16/16) Bactrim (Unverified Allergy, Mild, 10/16/16) Lactose (Unverified Allergy, Mild, 10/16/16) Active Ordered Medications Current Medications Medications (Trade) Dose Ordered Sig/Eloise Route Start Time Stop Time Status Last Admin (NS 1000 ml Inj) 1,000 ml @ 100 mls/hr Q10H IV 10/19/16 13:54 10/19/16 23:53 (NS Flush) 2 ml UNSCH PRN IV FLUSH 10/19/16 14:00 (NS Flush) 2 ml BID IV FLUSH 10/19/16 21:00 (Tylenol) 650 mg Q4H PRN PO 10/19/16 14:00 (Zofran Inj) 4 mg Q6H PRN IVP 10/19/16 14:00 (Colace) 100 mg Q12H PO 10/19/16 14:00 (Lovenox Inj) 40 mg Q24H SQ 10/19/16 14:00 (Narcan Inj) 0.4 mg UNSCH PRN IV 10/19/16 14:00 Family History Mother, , [place] Cancer Social History Patient denies any tobacco use, alcohol consumption or illicit drug use. Patient resides with her niece. Physical Exam Vital Signs Vital Signs Date Time Temp Pulse Resp B/P Pulse Ox O2 Delivery O2 Flow Rate FiO2 10/19/16 13:00 97.6 80 16 150/72 100 Physical Exam GENERAL: This is a well-nourished, well-developed patient, in no apparent distress. Intellectually disabled. Awake and alert. SKIN: (+)tender raised mass in right axilla with surrounding erythema. Scant amount of drainage appreciated. Cool and dry. HEAD: Atraumatic. Normocephalic. No temporal or scalp tenderness. EYES: Pupils equal round and reactive. Extraocular motions intact. No scleral icterus. No injection or drainage. ENT: Nose without bleeding, purulent drainage or septal hematoma. Throat without erythema, tonsillar hypertrophy or exudate. Uvula midline. Airway patent. NECK: Trachea midline. Supple, nontender, no meningeal signs. CARDIOVASCULAR: Regular rate and rhythm without murmurs, gallops, or rubs. RESPIRATORY: Clear to auscultation. Breath sounds equal bilaterally. No wheezes , rales, or rhonchi. GASTROINTESTINAL: Abdomen soft, non-tender, nondistended. No hepato-splenomegaly , or palpable masses. No guarding. MUSCULOSKELETAL: Extremities without clubbing, cyanosis, or edema. No joint tenderness, effusion, or edema noted. No calf tenderness. NEUROLOGICAL: Awake and alert. Able to move all extremities. No focal neurologic findings appreciated. Normal speech. Assessment and Plan Assessment and Plan 55 yo female with schizoaffective disorder bipolar type and intellectual disability admitted with critical hyponatremia. Severe hyponatremia - likely hypovolemic hyponatremia - Na level 124 - IVF - monitor with am labs Leukopenia - ?medication side effect - am labs to monitor Schizoaffective disorder bipolar type with acute psychotic episode - Consult psychiatry Abscess right axilla, MRSA - IV Vancomycin, pharmacy to dose - Monitor Abdominal pain, N/V - likely rxn to clindamycin - IVF - monitor DVT prophylaxis - Lovenox Written by Lindsay Duff PA-C acting as scribe for Dr. Christensen on 10/19/16 at 14:15. This note was transcribed by scribe [Lindsay Duff]. I, Dr. Mario Christensen personally performed the history, physical exam, and medical decision making; and confirmed the accuracy of the information in the transcribed note. Authenticated by Dr. Mario Christensen on 10/19/16 at 15:01. Physician Certification 2 Midnight Certification Type: Admission for Inpatient Services Order for Inpatient Services The services are ordered in accordance with Medicare regulations or non- Medicare payer requirements, as applicable. In the case of services not specified as inpatient-only, they are appropriately provided as inpatient services in accordance with the 2-midnight benchmark. Estimated LOS (days): 2 days is the estimated time the patient will need to remain in the hospital, assuming treatment plan goals are met and no additional complications. Post-Hospital Plan: Other (specify) Notes: Return to [facility] care when hyponatremia resolved and off IV antibiotics Lindsay Duff October 19, 2016 14:28 Mario Christensen MD October 19, 2016 15:02
[2016-10-19] MEDS: DOCUSATE SODIUM 100 MG CAP PO SCH (16:13)
[2016-10-19] MEDS: ENOXAPARIN SODIUM 40 MG/0.4 ML SYRINGE SQ SCH (16:14)
[2016-10-19] MEDS: VANCOMYCIN 1,500 MG/NS 500 ML IV SCH ×2 (16:45)
[2016-10-19 19:30] VITALS: BP 163/86; PULSE 70; RESP 18; TEMP 97.8; O2SAT 96
[2016-10-19 20:00] VITALS: PULSE 73
[2016-10-19] MEDS: ONDANSETRON HCL 4 MG/2 ML VIAL IVP PRN (20:34)
[2016-10-19] MEDS: SODIUM CHLORIDE 0.9% FLUSH 10 ML FLUSH IV FLUSH SCH (20:36)
[2016-10-20] VITALS: BP 126/60; PULSE 69; RESP 20; TEMP 97.6; O2SAT 93
[2016-10-20] MEDS: ACETAMINOPHEN 325 MG TAB PO PRN ×3 (00:19→20:14)
[2016-10-20] MEDS: DOCUSATE SODIUM 100 MG CAP PO SCH ×2 (02:00→13:35)
[2016-10-20] MEDS: VANCOMYCIN 1,500 MG/NS 500 ML IV SCH ×4 (03:05→15:21)
[2016-10-20 04:00] VITALS: BP 135/64; PULSE 75; RESP 22; TEMP 97.6; O2SAT 95
[2016-10-20 07:34] LABS: AUTOMATED NEUTROPHIL # 2.6 TH/MM3 (1.8-7.7); BASOPHIL % 0.9 % (0.0-2.0); EOSINOPHIL # 0.1 TH/MM3 (0-0.4); EOSINOPHIL % 4.2 % (0.0-4.0); HEMATOCRIT 31.7 % (35.0-46.0); HEMO FLAGS DIFF FINAL; LYMPH % 11.3 % (9.0-44.0); LYMPHOCYTE # 0.4 TH/MM3 (1.0-4.8); MEAN CELL VOLUME 84.8 FL (80.0-100.0); MEAN CORPUSCULAR HEMOGLOBIN 29.5 PG (27.0-34.0); MEAN CORPUSCULAR HGB CONC 34.8 % (32.0-36.0); NEUT % 75.6 % (16.0-70.0); PLATELET COUNT 222 TH/MM3 (150-450); RED BLOOD COUNT 3.74 MIL/MM3 (4.00-5.30); RED CELL DISTRIBUTION WIDTH 13.9 % (11.6-17.2); WHITE BLOOD COUNT 3.4 TH/MM3 (4.0-11.0)
[2016-10-20 08:00] VITALS: BP 130/66; PULSE 72; RESP 17; TEMP 98.1; O2SAT 96
[2016-10-20 08:04] LABS: ALKALINE PHOSPHATASE 116 U/L (45-117); ALT (GPT) 23 U/L (10-53); ANION GAP 9 MEQ/L (5-15); AST (GOT) 19 U/L (15-37); BICARBONATE 27.5 MEQ/L (21.0-32.0); BLOOD UREA NITROGEN 5 MG/DL (7-18); CHLORIDE 89 MEQ/L (98-107); GLOMERULAR FILTRATION RATE 147 ML/MIN (>89); POTASSIUM 4.1 MEQ/L (3.5-5.1); SODIUM (NA) 125 MEQ/L (136-145); TOTAL BILIRUBIN ADULT 0.4 MG/DL (0.2-1.0)
[2016-10-20] MEDS: SODIUM CHLORIDE 0.9% FLUSH 10 ML FLUSH IV FLUSH SCH ×2 (09:00→20:15)
--- NOTE | 2016-10-20 09:18 | HHI.PR ---
Subjective Remarks Some nausea remains. No emesis. Hyponatremia is slightly improved. Objective Vital Signs Date Time Temp Pulse Resp B/P Pulse Ox O2 Delivery O2 Flow Rate FiO2 10/20/16 04:00 97.6 75 22 135/64 95 10/20/16 00:00 Room Air 10/20/16 00:00 97.6 69 20 126/60 93 10/19/16 20:00 Room Air 10/19/16 19:30 97.8 70 18 163/86 96 10/19/16 13:00 97.6 80 16 150/72 100 I/O 10/19/16 10/19/16 10/19/16 10/20/16 10/20/16 10/20/16 07:00 15:00 23:00 07:00 15:00 23:00 Intake Total 1446 ml Balance 1446 ml Intake Oral 240 ml IV Total 1206 ml # Voids 2 3 # Bowel Movements 1 Result Diagram: 10/20/16 0634 10/20/16 0634 Objective Remarks GENERAL: NAD, A&Ox1 (chronic, MR) SKIN: Warm and dry. HEAD: Normocephalic. EYES: No scleral icterus. No injection or drainage. NECK: Supple, trachea midline. No JVD or lymphadenopathy. CARDIOVASCULAR: Regular rate and rhythm without murmurs, gallops, or rubs. RESPIRATORY: Breath sounds equal bilaterally. No accessory muscle use. GASTROINTESTINAL: Abdomen soft, non-tender, nondistended. MUSCULOSKELETAL: No cyanosis, or edema. Right Axilla has mild erythema at sites of 1cm abbesses with surrounding induration. A/P Problem List: (1) Abscess of right axilla ICD Code: L02.411 (2) Hyponatremia ICD Code: E87.1 (3) Intellectual disability ICD Code: F79 (4) Psychosis ICD Code: F29 Assessment and Plan Right Axilla Cellulitis Vancomycin continued Follow clinically Improving today Hyponatremia Not yet normalized Slight improvement Continue NS IV Hyperemesis Vomiting has resolved, nausea remains Monitor for vomiting PRN zofran IV Hydration Mario Christensen MD October 20, 2016 9:18 am
[2016-10-20 12:00] VITALS: BP 128/83; PULSE 72; RESP 17; TEMP 97.8; O2SAT 99
[2016-10-20] MEDS: ONDANSETRON HCL 4 MG/2 ML VIAL IVP PRN (13:33)
[2016-10-20] MEDS: ENOXAPARIN SODIUM 40 MG/0.4 ML SYRINGE SQ SCH (13:35)
[2016-10-20 16:01] VITALS: BP 130/74; PULSE 71; RESP 16; TEMP 98; O2SAT 99
[2016-10-20 20:00] VITALS: BP 116/57; PULSE 64; RESP 16; TEMP 98.3; O2SAT 99
[2016-10-21] VITALS: BP 117/58; PULSE 79; RESP 18; TEMP 98.9; O2SAT 97
[2016-10-21] MEDS: DOCUSATE SODIUM 100 MG CAP PO SCH ×2 (02:00→14:14)
[2016-10-21] MEDS ORDERED: PHARMACY ORDERED LAB ONE (02:45)
[2016-10-21] MEDS: VANCOMYCIN 1,500 MG/NS 500 ML IV SCH ×2 (03:03)
[2016-10-21 04:00] VITALS: BP 111/46; PULSE 71; RESP 18; TEMP 97.8; O2SAT 99
[2016-10-21 07:07] LABS: HEMATOCRIT 31.9 % (35.0-46.0); MEAN CELL VOLUME 85.7 FL (80.0-100.0); MEAN CORPUSCULAR HEMOGLOBIN 29.5 PG (27.0-34.0); MEAN CORPUSCULAR HGB CONC 34.4 % (32.0-36.0); PLATELET COUNT 215 TH/MM3 (150-450); RED BLOOD COUNT 3.72 MIL/MM3 (4.00-5.30); RED CELL DISTRIBUTION WIDTH 14.4 % (11.6-17.2); REVIEW FLAG FINAL; WHITE BLOOD COUNT 2.8 TH/MM3 (4.0-11.0)
[2016-10-21 07:31] LABS: BICARBONATE 29.6 MEQ/L (21.0-32.0); POTASSIUM 3.5 MEQ/L (3.5-5.1)
[2016-10-21 08:00] VITALS: BP 118/66; PULSE 67; RESP 20; TEMP 98.1; O2SAT 91
[2016-10-21] MEDS: SODIUM CHLORIDE 0.9% FLUSH 10 ML FLUSH IV FLUSH SCH ×2 (09:00→20:57)
[2016-10-21 12:00] VITALS: BP 131/71; PULSE 63; RESP 20; TEMP 97.3; O2SAT 91
[2016-10-21] MEDS: VANCOMYCIN INJ 1,750 MG in SODIUM CHLORID 0.9% 500 ML INJ 500 ML IV SCH (14:14)
[2016-10-21] MEDS: ENOXAPARIN SODIUM 40 MG/0.4 ML SYRINGE SQ SCH (14:14)
--- NOTE | 2016-10-21 14:34 | HHI.PR ---
Subjective Remarks Hyponatremia resolved today. She will need at least 5 days of treatment and is currently in day 3 of 5. She reports that she still has pain at the right axilla. Objective Vital Signs Date Time Temp Pulse Resp B/P Pulse Ox O2 Delivery O2 Flow Rate FiO2 10/21/16 12:00 97.3 63 20 131/71 91 10/21/16 08:00 98.1 67 20 118/66 91 10/21/16 04:00 97.8 71 18 111/46 99 10/21/16 04:00 Room Air 10/21/16 00:00 Room Air 10/21/16 00:00 98.9 79 18 117/58 97 10/20/16 20:00 Room Air 10/20/16 20:00 98.3 64 16 116/57 99 10/20/16 16:01 98.0 71 16 130/74 99 I/O 10/20/16 10/20/16 10/20/16 10/21/16 10/21/16 10/21/16 07:00 15:00 23:00 07:00 15:00 23:00 Intake Total 1446 ml 520 ml 0 ml 0 ml Balance 1446 ml 520 ml 0 ml 0 ml Intake Oral 240 ml 520 ml 0 ml 0 ml IV Total 1206 ml # Voids 3 7 3 5 # Bowel Movements 5 0 0 Result Diagram: 10/21/1643410/21/16434 Objective Remarks GENERAL: NAD, A&Ox1 (chronic, MR) SKIN: Warm and dry. HEAD: Normocephalic. EYES: No scleral icterus. No injection or drainage. NECK: Supple, trachea midline. No JVD or lymphadenopathy. CARDIOVASCULAR: Regular rate and rhythm without murmurs, gallops, or rubs. RESPIRATORY: Breath sounds equal bilaterally. No accessory muscle use. GASTROINTESTINAL: Abdomen soft, non-tender, nondistended. MUSCULOSKELETAL: No cyanosis, or edema. Right Axilla has mild erythema at sites of 1cm abbesses with surrounding induration. A/P Problem List: (1) Abscess of right axilla ICD Code: L02.411 (2) Hyponatremia ICD Code: E87.1 (3) Intellectual disability ICD Code: F79 (4) Psychosis ICD Code: F29 Assessment and Plan Right Axilla Cellulitis Vancomycin continued Minimum treatment of 5 days Follow clinically Improving today Hyponatremia Not yet normalized Slight improvement Continue NS IV Hyperemesis Vomiting has resolved, nausea remains Monitor for vomiting PRN zofran IV Hydration Mario Christensen MD October 21, 2016 14:34
[2016-10-21 16:00] VITALS: BP 124/60; PULSE 71; RESP 20; TEMP 97.9; O2SAT 97
[2016-10-21 20:00] VITALS: BP 127/65; PULSE 78; RESP 20; TEMP 97.7; O2SAT 100
[2016-10-22] VITALS: BP 109/69; PULSE 68; RESP 16; TEMP 98.1; O2SAT 99
[2016-10-22] MEDS: DOCUSATE SODIUM 100 MG CAP PO SCH ×2 (01:43→16:19)
[2016-10-22] MEDS: VANCOMYCIN INJ 1,750 MG in SODIUM CHLORID 0.9% 500 ML INJ 500 ML IV SCH ×2 (02:25→17:14)
[2016-10-22 04:00] VITALS: BP 111/55; PULSE 69; RESP 18; TEMP 98; O2SAT 99
[2016-10-22] MEDS: ACETAMINOPHEN 325 MG TAB PO PRN ×2 (04:08→09:34)
[2016-10-22 07:28] LABS: HEMATOCRIT 33.9 % (35.0-46.0); MEAN CELL VOLUME 86.4 FL (80.0-100.0); MEAN CORPUSCULAR HEMOGLOBIN 28.3 PG (27.0-34.0); MEAN CORPUSCULAR HGB CONC 32.7 % (32.0-36.0); PLATELET COUNT 228 TH/MM3 (150-450); RED BLOOD COUNT 3.92 MIL/MM3 (4.00-5.30); RED CELL DISTRIBUTION WIDTH 14.1 % (11.6-17.2); REVIEW FLAG FINAL; WHITE BLOOD COUNT 3.5 TH/MM3 (4.0-11.0)
[2016-10-22 08:00] VITALS: BP 135/71; PULSE 72; RESP 12; TEMP 98.2; O2SAT 99
[2016-10-22 08:02] LABS: BICARBONATE 29.7 MEQ/L (21.0-32.0); POTASSIUM 3.6 MEQ/L (3.5-5.1)
[2016-10-22] MEDS: ONDANSETRON HCL 4 MG/2 ML VIAL IVP PRN (09:34)
[2016-10-22] MEDS: SODIUM CHLORIDE 0.9% FLUSH 10 ML FLUSH IV FLUSH SCH (09:36)
[2016-10-22 12:00] VITALS: BP 110/69; PULSE 71; RESP 16; TEMP 98.1; O2SAT 99
--- NOTE | 2016-10-22 13:43 | HHI.PR ---
Subjective Remarks Follow-up right axilla cellulitis 10/22/16-patient seen and examined, denies any right axilla pain. Currently afebrile. Cellulitis significantly improving. Objective Vitals Vital Signs Date Time Temp Pulse Resp B/P Pulse Ox O2 Delivery O2 Flow Rate FiO2 10/22/16 12:00 98.1 71 16 110/69 99 10/22/16 09:36 Room Air 10/22/16 08:00 98.2 72 12 135/71 99 10/22/16 05:21 18 10/22/16 04:00 98.0 69 18 111/55 99 10/22/16 00:00 98.1 68 16 109/69 99 10/21/16 21:00 Room Air 10/21/16 20:00 97.7 78 20 127/65 100 10/21/16 16:00 97.9 71 20 124/60 97 I/O 10/21/16 10/21/16 10/21/16 10/22/16 10/22/16 10/22/16 07:00 15:00 23:00 07:00 15:00 23:00 Intake Total 0 ml 1200 ml 740 ml 0 ml Balance 0 ml 1200 ml 740 ml 0 ml Intake Oral 0 ml 1200 ml 240 ml 0 ml IV Total 500 ml # Voids 5 5 3 3 # Bowel Movements 0 2 0 0 Result Diagram: 10/22/16 0610/22/16 0600 Objective Remarks GENERAL: NAD SKIN: Warm and dry.improving right axilla erythema HEAD: Normocephalic. EYES: No scleral icterus. No injection or drainage. NECK: Supple, trachea midline. No JVD or lymphadenopathy. CARDIOVASCULAR: Regular rate and rhythm without murmurs, gallops, or rubs. RESPIRATORY: Breath sounds equal bilaterally. No accessory muscle use. GASTROINTESTINAL: Abdomen soft, non-tender, nondistended. MUSCULOSKELETAL: No cyanosis, or edema. BACK: Nontender without obvious deformity. No CVA tenderness. A/P Problem List: (1) Abscess of right axilla ICD Code: L02.411 Status: Acute (2) Hyponatremia ICD Code: E87.1 Status: Acute (3) Adjustment disorder ICD Code: F43.20 Status: Acute (4) Schizoaffective disorder, bipolar type ICD Code: F25.0 Status: Acute Assessment and Plan 55-year-old female with Right Axilla Cellulitis Currently on Vancomycin and improving Will switch to clindamycin Patient is now medically stable and can be discharged to psychiatry Hyponatremia-resolved Hyperemesis-resolved Schizoaffective disorder Psych consultation pending Will discharge patient back to inpatient psychiatry Patient is now medically stable Michel Vincent MD October 22, 2016 13:43
[2016-10-22] MEDS ORDERED: CLIN1CAP6 PO (13:57)
--- NOTE | 2016-10-22 14:00 | HHI.DS ---
Discharge Summary Admission Date October 19, 2016 at 13:00 Discharge Date: October 22, 2016 Admitting Diagnosis (1) Abscess of right axilla ICD Code: L02.411 (2) Hyponatremia ICD Code: E87.1 (3) Adjustment disorder ICD Code: F43.20 (4) Schizoaffective disorder, bipolar type ICD Code: F25.0 Procedures none Brief History - From Admission This is a 55-year-old female with a past medical history significant for schizoaffective disorder bipolar type and intellectual disability who was brought to the emergency room under Quinn act due to psychotic episode and was admitted to the psychiatric unit. Hospitalist services were requested for medical management. Patient reports 6 week history of tender swollen mass in right axilla that she states nothing has helped. In the ED, wound culture was obtained which was positive for MRSA and was started on Clindamycin which cultures showed sensitivity to. Patient complains of abdominal pain with nausea and vomiting. Per nursing staff, patient vomited 2 times today as well as twice yesterday. She denies any associated fever, chills, nausea, vomiting, diarrhea or constipation. Patient also denies any chest pain or shortness of breath. Labs today were significant for a critical sodium level of 124. She was also noted to have a drop in white count to 3.3 today. Patient is to be discharged from psychiatry admitted to medical floor. CBC/BMP: 10/22/16 0600 10/22/16 0600 Significant Findings Laboratory Tests Test 10/20/16 10/21/16 10/21/16 10/22/16 06:34 02:40 04:35 06:00 White Blood Count 3.4 TH/MM3 2.8 TH/MM3 3.5 TH/MM3 (4.0-11.0) (4.0-11.0) (4.0-11.0) Red Blood Count 3.74 MIL/MM3 3.72 MIL/MM3 3.92 MIL/MM3 (4.00-5.30) (4.00-5.30) (4.00-5.30) Hemoglobin 11.0 GM/DL 11.0 GM/DL 11.1 GM/DL (11.6-15.3) (11.6-15.3) (11.6-15.3) Hematocrit 31.7 % 31.9 % 33.9 % (35.0-46.0) (35.0-46.0) (35.0-46.0) Neutrophils (%) (Auto) 75.6 % (16.0-70.0) Eosinophils (%) (Auto) 4.2 % (0.0-4.0) Lymphocytes # (Auto) 0.4 TH/MM3 (1.0-4.8) Sodium Level 125 MEQ/L (136-145) Chloride Level 89 MEQ/L (98-107) Blood Urea Nitrogen 5 MG/DL (7-18) 3 MG/DL (7-18) 4 MG/DL (7-18) Creatinine 0.44 MG/DL 0.44 MG/DL 0.48 MG/DL (0.50-1.00) (0.50-1.00) (0.50-1.00) Calcium Level 8.0 MG/DL (8.5-10.1) Total Protein 5.6 GM/DL (6.4-8.2) Albumin 2.8 GM/DL (3.4-5.0) Vancomycin Level Trough 12.8 MCG/ML (5.0-10.0) PE at Discharge GENERAL: NAD SKIN: Warm and dry.improving right axilla erythema HEAD: Normocephalic. EYES: No scleral icterus. No injection or drainage. NECK: Supple, trachea midline. No JVD or lymphadenopathy. CARDIOVASCULAR: Regular rate and rhythm without murmurs, gallops, or rubs. RESPIRATORY: Breath sounds equal bilaterally. No accessory muscle use. GASTROINTESTINAL: Abdomen soft, non-tender, nondistended. MUSCULOSKELETAL: No cyanosis, or edema. BACK: Nontender without obvious deformity. No CVA tenderness. Hospital Course Patient was treated with IV vancomycin for right axilla cellulitis with significant improvement. She also responded well to IV fluid hydration secondary to dehydration and emesis. Electrode abnormalities including hyponatremia resolved. Antipsychotic medications were resumed. DVT and GI prophylaxis provided. Pt Condition on Discharge: Stable Discharge Disposition: Disc to [facility] Discharge Time: > 30 minutes Discharge Instructions DIET: Follow Instructions for: Heart Healthy Diet Activities you can perform: Regular-No Restrictions Follow up Referrals: PCP Follow-up - 2-3 Days New Medications: Clindamycin (Clindamycin) 300 Mg Cap 300 MG PO TID Infection #15 Ref 0 CAP Continued Medications: Buspirone (Buspirone) 10 Mg Tab 10 MG PO TID Anxiety Ref 0 TAB Oxcarbazepine (Trileptal) 600 Mg Tab 1200 MG PO BID Seizure Control #60 Ref 0 TAB Ziprasidone (Ziprasidone) 60 Mg Cap 80 MG PO BID #60 Ref 0 CAP Discontinued Medications: Clindamycin (Clindamycin) 300 Mg Cap 300 MG PO Q6H Infection Days 10 Ref 0 CAP Additional Information She needed to take clindamycin with meal to offset GI side effects Michel Vincent MD October 22, 2016 14:00
--- NOTE | 2016-10-22 14:26 | HHI.PYPN ---
Subjective Remarks Patient was seen today for psychiatric reevaluation in the medical floor, patient is found calm, cooperative and pleasant watching TV and eating her breakfast. Patient reports good mood, she says that she is happy here, denies depression, denies anxiety, denies corey, denies psychosis. Patient denies suicidal or homicidal ideation, she denies visual and auditory hallucinations. No agitation, no aggressive behavior, no delirium, no delusions, no paranoia are observed during this evaluation. Patient is fully comply with her medications, no significant side effects. Review of Systems Constitutional: DENIES: Diaphoretic episodes, Fatigue, Fever, Weight gain, Weight loss, Chills, Dizziness, Change in appetite, Night Sweats Endocrine: DENIES: Abnorml menstrual pattern, Heat/cold intolerance, Polydipsia , Polyuria, Polyphagia Eyes: DENIES: Blurred vision, Diplopia, Eye inflammation, Eye pain, Vision loss , Photosensitivity, Double Vision Ears, nose, mouth, throat: DENIES: Tinnitus, Hearing loss, Vertigo, Nasal discharge, Oral lesions, Throat pain, Hoarseness, Ear Pain, Running Nose, Epistaxis, Sinus Pain, Toothache, Odynophagia Respiratory: DENIES: Apneas, Cough, Snoring, Wheezing, Hemoptysis, Sputum production, Shortness of breath Cardiovascular: DENIES: Chest pain, Palpitations, Syncope, Dyspnea on Exertion , PND, Lower Extremity Edema, Orthopnea, Claudication Gastrointestinal: DENIES: Abdominal pain, Black stools, Bloody stools, Constipation, Diarrhea, Nausea, Vomiting, Difficulty Swallowing, Anorexia Genitourinary: DENIES: Abnormal vaginal bleeding, Dysmenorrhea, Dyspareunia, Sexual dysfunction, Urinary frequency, Urinary incontinence, Urgency, Hematuria , Dysuria, Nocturia, Vaginal discharge Musculoskeletal: DENIES: Joint pain, Muscle aches, Stiffness, Joint Swelling, Back pain, Neck pain Integumentary: DENIES: Abnormal pigmentation, Pruritus, Rash, Nail changes, Breast masses, Breast skin changes, Nipple discharge Hematologic/lymphatic: DENIES: Bruising, Lymphadenopathy Immunologic/allergic: DENIES: Eczema, Urticaria Neurologic: DENIES: Abnormal gait, Headache, Localized weakness, Paresthesias, Seizures, Speech Problems, Tremor, Poor Balance Psychiatric: DENIES: Anxiety, Confusion, Mood changes, Depression, Hallucinations, Agitation, Suicidal Ideation, Homicidal Ideation, Delusions Objective Alert: Yes [place]: Person, Place Mood: Calm Affect: Appropriate Memory Intact: Immediate, Recent, Remote Hallucinations: Other (she denies) Delusions: No Delusion Type: Other (not elicited) Suicidal: Ideation (she denies) Homicidal: Ideation (she denies) Insight/Judgment Fair Labs Test 10/22/16 06:00 White Blood Count 3.5 TH/MM3 Red Blood Count 3.92 MIL/MM3 Hemoglobin 11.1 GM/DL Hematocrit 33.9 % Mean Corpuscular Volume 86.4 FL Mean Corpuscular Hemoglobin 28.3 PG Mean Corpuscular Hemoglobin 32.7 % Concent Red Cell Distribution Width 14.1 % Platelet Count 228 TH/MM3 Mean Platelet Volume 7.3 FL Sodium Level 138 MEQ/L Potassium Level 3.6 MEQ/L Chloride Level 102 MEQ/L Carbon Dioxide Level 29.7 MEQ/L Anion Gap 6 MEQ/L Blood Urea Nitrogen 4 MG/DL Creatinine 0.48 MG/DL Estimat Glomerular Filtration 133 ML/MIN Rate Random Glucose 96 MG/DL Calcium Level 8.5 MG/DL Vitals/IOs Vital Signs Date Time Temp Pulse Resp B/P Pulse Ox O2 Delivery O2 Flow Rate FiO2 10/22/16 12:00 98.1 71 16 110/69 99 10/22/16 09:36 Room Air Intake and Output 10/21/16 10/21/16 10/21/16 07:59 15:59 23:59 Intake Total 0 ml 1700 ml 240 ml Balance 0 ml 1700 ml 240 ml Assessment & Plan Problem List: (1) Schizoaffective disorder, bipolar type Assessment & Plan: On psychiatric evaluation today patient seems to be at baseline, no agitation, no aggressive behavior, no delusions, paranoia observed. Patient denies depression, denies anxiety, denies psychosis. Nice suicidal and homicidal ideation, she denies visual and auditory hallucinations. Patient does not need to continue psychiatric hospitalization at this time. She can continue with current psychotropic regimen at home and in outpatient basis. Extensive support, psycho education provided. Patient can be discharged back home with her niece. ICD Code: F25.0 (2) Intellectual disability ICD Code: F79 Assessment & Plan Estimated LOS: days Justification for Cont. Inpt. Patient does not meet criteria for psychiatric hospitalization at this time Ab Stafford MD October 22, 2016 14:26
[2016-10-22 16:00] VITALS: BP 112/68; PULSE 88; RESP 16; TEMP 97.5; O2SAT 95
[2016-10-22] MEDS: ENOXAPARIN SODIUM 40 MG/0.4 ML SYRINGE SQ SCH (16:20)
[2016-10-22] MEDS ORDERED: busPIRone HCL 10 MG TAB PO SCH (18:00)
[2016-10-22 19:45] VITALS: BP 135/76; PULSE 74; RESP 16; TEMP 97.3; O2SAT 92
[2016-10-22] MEDS ORDERED: ZIPRASIDONE HCL 80 MG CAP PO SCH (21:00)
[2016-10-22] MEDS ORDERED: OXcarbazepine 600 MG TAB PO SCH (21:00)
[2016-10-23] MEDS ORDERED: PHARMACY ORDERED LAB ONE (02:45)
== END 2016-10-22 19:51 | disposition home or self-care (01) | DRG 641 ==
LOC: N04B 13:00
PROVIDERS: ADMIT Hospitalist; ATTEND Hospitalist
DX: E87.1 Hypo-osmolality and hyponatremia (principal); E86.0 Dehydration; L03.111 Cellulitis of right axilla; E11.9 Type 2 diabetes mellitus without complications; F25.0 Schizoaffective disorder, bipolar type; F41.9 Anxiety disorder, unspecified; F79 Unspecified intellectual disabilities; R11.2 Nausea with vomiting, unspecified
CPT/HCPCS: 80048; 80053; 80202; 85025; 85027; J1650; J2405; J3370; J7030; J7040

== ENCOUNTER 2016-12-02 17:36 | Inpatient (IN) | payer OTHER ==
[~2016-12-02] VITALS: Ht 165.1 cm; Wt 71.2 kg
[2016-12-02] MEDS ORDERED: HALOPERIDOL LACTATE 5 MG/ML AMP ONE (17:44)
[2016-12-02] MEDS ORDERED: MIDAZOLAM HCL 5 MG/ML VIAL (1 ML) IM ONE (17:45)
[2016-12-02] MEDS ORDERED: HALOPERIDOL LACTATE 5 MG/ML AMP IM ONE (17:45)
[2016-12-02] MEDS ORDERED: MIDAZOLAM HCL 5 MG/ML VIAL (1 ML) ONE (17:45)
[2016-12-02 18:18] VITALS: BP 118/74; PULSE 75; RESP 20; TEMP 98.2; O2SAT 98
--- NOTE | 2016-12-02 18:53 | RADRPT ---
EXAM DATE/TIME: 12/02/2016 18:28 [facility] COMPARISON: CHEST SINGLE AP, October 08, 2016, 20:04. INDICATIONS : Shortness of breath. MEDICAL HISTORY : Hypertension. SURGICAL HISTORY : None. ENCOUNTER: Initial ACUITY: 1 day PAIN SCORE: 3/10 LOCATION: Bilateral chest FINDINGS: Portable AP view of the chest demonstrates a normal-sized cardiac silhouette. No effusion, consolidat ion, or pneumothorax is visualized. The bones and soft tissues demonstrate no acute abnormality. Chol ecystectomy clips are present. CONCLUSION: No acute cardiopulmonary abnormality is identified. Escobar Stratton MD on December 02, 2016 at 18:51 Board Certified Radiologist. This report was verified electronically.
[2016-12-02 19:11] LABS: AMPHETAMINE, URINE NEG (NEG); AUTOMATED NEUTROPHIL # 6.4 TH/MM3 (1.8-7.7); BARBITURATES, URINE NEG (NEG); BASOPHIL % 0.6 % (0.0-2.0); COCAINE, URINE NEG (NEG); EOSINOPHIL % 0.5 % (0.0-4.0); HEMATOCRIT 38.6 % (35.0-46.0); HEMO FLAGS DIFF FINAL; LYMPH % 10.3 % (9.0-44.0); LYMPHOCYTE # 0.8 TH/MM3 (1.0-4.8); MEAN CELL VOLUME 88.2 FL (80.0-100.0); MEAN CORPUSCULAR HEMOGLOBIN 29.3 PG (27.0-34.0); MEAN CORPUSCULAR HGB CONC 33.2 % (32.0-36.0); MONO % 4.6 % (0.0-8.0); PLATELET COUNT 185 TH/MM3 (150-450); RED BLOOD COUNT 4.37 MIL/MM3 (4.00-5.30); RED CELL DISTRIBUTION WIDTH 14.8 % (11.6-17.2); WHITE BLOOD COUNT 7.6 TH/MM3 (4.0-11.0)
[2016-12-02 19:34] LABS: ALKALINE PHOSPHATASE 107 U/L (45-117); ALT (GPT) 28 U/L (10-53); CREATINE KINASE 172 U/L (26-192); TOTAL BILIRUBIN ADULT 0.5 MG/DL (0.2-1.0)
[2016-12-02 19:48] LABS: ANION GAP 13 MEQ/L (5-15); AST (GOT) 20 U/L (15-37); BICARBONATE 22.2 MEQ/L (21.0-32.0); BLOOD UREA NITROGEN 14 MG/DL (7-18); CHLORIDE 104 MEQ/L (98-107); GLOMERULAR FILTRATION RATE 78 ML/MIN (>89); POTASSIUM 3.5 MEQ/L (3.5-5.1); SODIUM (NA) 139 MEQ/L (136-145)
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
[2016-12-02 22:33] VITALS: BP 124/78; PULSE 79; RESP 16; O2SAT 98
[2016-12-03 07:17] VITALS: BP 121/81; PULSE 82; RESP 18; O2SAT 98
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
[2016-12-03] MEDS ORDERED: HALOPERIDOL LACTATE 5 MG/ML AMP IM ONE (10:30)
[2016-12-03] MEDS ORDERED: LORazepam 2 MG/ML VIAL IM ONE (10:30)
[2016-12-03 12:07] VITALS: BP 112/59; PULSE 88; RESP 18; TEMP 97.3; O2SAT 99
[2016-12-03] MEDS ORDERED: MAGNESIUM HYDROXIDE SUSP 30 ML CUP PO PRN (16:00)
[2016-12-03 16:59] VITALS: BP 112/61; PULSE 81; RESP 18; TEMP 97.1; O2SAT 100
--- NOTE | 2016-12-03 17:09 | EKG ---
Date Performed: 12/02/2016 Time Performed: 18:09:52 PTAGE: 55 years EKG: Sinus rhythm NORMAL ECG NO PREVIOUS TRACING DOCTOR: Samantha Josue Interpretating Date/Time 12/03/2016 17:07:09
[2016-12-04 05:49] VITALS: BP 104/52; PULSE 68; RESP 18; TEMP 97.8; O2SAT 98
[2016-12-04 09:27] LABS: ANION GAP 6 MEQ/L (5-15); BICARBONATE 26.7 MEQ/L (21.0-32.0); BLOOD UREA NITROGEN 10 MG/DL (7-18); CHLORIDE 104 MEQ/L (98-107); GLOMERULAR FILTRATION RATE 97 ML/MIN (>89); HDL CHOLESTEROL 56.3 MG/DL (40.0-60.0); LDL CHOLESTEROL 68 MG/DL (0-99); POTASSIUM 4.5 MEQ/L (3.5-5.1); SODIUM (NA) 137 MEQ/L (136-145)
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
[2016-12-04] MEDS ORDERED: LORazepam 2 MG/ML VIAL IM PRN (12:45)
[2016-12-04] MEDS ORDERED: BENZTROPINE MESYLATE 2 MG/2 ML VIAL IM PRN (12:45)
[2016-12-04] MEDS ORDERED: BENZTROPINE MESYLATE 1 MG TAB PO PRN (12:45)
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
[2016-12-04] MEDS: busPIRone HCL 10 MG TAB PO SCH ×2 (14:45→17:57)
[2016-12-04 16:22] VITALS: BP 113/56; PULSE 84; RESP 18; TEMP 97.6
[2016-12-04 16:32] LABS: HEMOGLOBIN A1a 1.2 %; HEMOGLOBIN A1b 1.4 %; HEMOGLOBIN Ao 85.5 %; HEMOGLOBIN LA1C 1.8 %; HEMOGLOBIN P3 3.7 %
[2016-12-04] MEDS: ZIPRASIDONE HCL 60 MG CAP PO SCH (17:57)
[2016-12-04] MEDS ORDERED: OLANZapine ODT 10 MG TAB PO SCH (21:00)
[2016-12-04] MEDS: LORazepam 2 MG TAB PO PRN (21:25)
[2016-12-04] MEDS: OXcarbazepine 600 MG TAB PO SCH (21:25)
[2016-12-04] MEDS: ZOLPIDEM TARTRATE 5 MG TAB PO PRN (21:26)
[2016-12-05 06:16] VITALS: BP 118/61; PULSE 57; RESP 18; TEMP 98; O2SAT 100
[2016-12-05] MEDS: ACETAMINOPHEN 325 MG TAB PO PRN (07:41)
[2016-12-05] MEDS ORDERED: diphenhydrAMINE HCL 2%/ZINC ACETATE 0.1% CREAM 30 APPLIC/30 GM TUBE TOPICAL PRN (07:45)
[2016-12-05] MEDS: busPIRone HCL 10 MG TAB PO SCH ×3 (08:11→18:06)
[2016-12-05] MEDS: OXcarbazepine 600 MG TAB PO SCH ×2 (08:11→20:44)
[2016-12-05] MEDS: ZIPRASIDONE HCL 60 MG CAP PO SCH ×2 (08:12→18:06)
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
[2016-12-05] MEDS ORDERED: HALOPERIDOL 5 MG TAB PO PRN (15:30)
[2016-12-05] MEDS ORDERED: HALOPERIDOL LACTATE 5 MG/ML AMP IM PRN (15:30)
[2016-12-05] MEDS: ZOLPIDEM TARTRATE 5 MG TAB PO PRN (20:43)
[2016-12-05] MEDS: OLANZapine ODT 10 MG TAB PO SCH (20:44)
[2016-12-05 20:50] VITALS: BP 156/70; PULSE 93; RESP 18; O2SAT 100
[2016-12-05 22:10] VITALS: BP 104/59; PULSE 74; RESP 14; TEMP 97.4; O2SAT 100
[2016-12-06 02:32] VITALS: BP 136/73; PULSE 66; RESP 18; TEMP 96.9
[2016-12-06 05:57] VITALS: BP 108/59; PULSE 62; RESP 16; TEMP 97.5; O2SAT 97
[2016-12-06 05:59] VITALS: BP 146/65; PULSE 100; RESP 16; TEMP 97; O2SAT 98
[2016-12-06] MEDS: ZIPRASIDONE HCL 60 MG CAP PO SCH ×2 (09:52→17:51)
[2016-12-06] MEDS: OLANZapine ODT 10 MG TAB PO SCH ×2 (09:52→21:23)
[2016-12-06] MEDS: OXcarbazepine 600 MG TAB PO SCH ×2 (09:52→21:23)
[2016-12-06] MEDS: busPIRone HCL 10 MG TAB PO SCH ×3 (09:52→17:51)
--- NOTE | 2016-12-06 12:20 | HHI.PYPN ---
Subjective Remarks Patient seen and examined. Chart reviewed. Case discussed with RN. Patient passed an uneventful morning. I was called around noontime to evaluate patient following a fall. I find the patient on the floor of the 2700 hallway. I note a ~4cm contusion on her left latter-day but no other signs of trauma. She is at baseline a poor historian and is unable to tell me what happened. She is moving all 4 extremities. There is no focal tenderness on the scalp or c-spine , except over the area of contusion on the latter-day. Pupils equal and round. EOMI. No other evidence of trauma or distress. No other physical complaints. No evident side effects from medications. Review of Systems ROS Limitations: Poor Historian Except as stated in HPI: all other systems reviewed are Neg Objective Alert: Yes [place]: Person (at least) Mood: Anxious, Calm Affect: Blunted Memory Intact: Comment (No obvious deficits) Hallucinations: Other (No AVH) Delusions: No Delusion Type: Other (No delusions) Suicidal: Ideation (No SI) Homicidal: Ideation (No HI) Insight/Judgment Poor Remarks TP at baseline. No motoric abnormalities noted. Speech at baseline for pt. Labs Labs reviewed. Vitals/IOs Vital Signs Date Time Temp Pulse Resp B/P Pulse Ox O2 Delivery O2 Flow Rate FiO2 12/06/16 05:59 97.0 100 16 146/65 98 12/03/16 12:07 Room Air Assessment & Plan Problem List: (1) Adjustment disorder ICD Code: F43.20 (2) Intellectual disability ICD Code: F79 Assessment & Plan Stat head and c-spine CT. Initiate 1:1 for fall risk upon return from CT. Check orthostatics upon return from CT. I have asked the nurse to make the hospitalist aware of the fall. Continue current psychotropics as ordered. Continue to monitor on inpatient unit. Continue other medications and care as ordered. Justification for Cont. Inpt. Complicating conditions, fall. High risk for decompensation in less restrictive setting. Discharge Planning ?Placement. Request HC Surrog/Guard Advoc?: Yes Problem Qualifiers (1) Adjustment disorder: Qualified Code: F43.25 - Adjustment disorder with mixed disturbance of emotions and conduct Igor Lawrence MD Dec 06, 2016 12:20
[2016-12-06 12:31] VITALS: BP 142/84; PULSE 79; RESP 17; TEMP 97.9; O2SAT 100
--- NOTE | 2016-12-06 12:49 | RADRPT ---
EXAM DATE/TIME: 12/06/2016 12:34 [facility] COMPARISON: CT BRAIN W/O CONTRAST, October 08, 2016, 20:11. INDICATIONS : Trauma, fall today. RADIATION DOSE: 34.00 CTDIvol (mGy) MEDICAL HISTORY : Non-responsive. SURGICAL HISTORY : Non-responsive. ENCOUNTER: Initial ACUITY: 1 day PAIN SCALE: 5/10 LOCATION: cranial TECHNIQUE: Multiple contiguous axial images were obtained of the head. Using automated exposure control and adj ustment of the mA and/or kV according to patient size, radiation dose was kept as low as reasonably a chievable to obtain optimal diagnostic quality images. DICOM format image data is available electro nically for review and comparison. FINDINGS: CEREBRUM: The ventricles are normal for age. No evidence of midline shift, mass lesion, hemorrhage or acute in farction. No extra-axial fluid collections are seen. POSTERIOR FOSSA: The cerebellum and brainstem are intact. The 4th ventricle is midline. The cerebellopontine angle i s unremarkable. EXTRACRANIAL: The visualized portion of the orbits is intact. SKULL: Moderate sized left frontal scalp hematoma. Underlying calvarium appears intact. CONCLUSION: 1. Moderate sized left frontal scalp hematoma. 2. No acute intracranial abnormality. Lizandro Owen MD on December 06, 2016 at 12:40 Board Certified Radiologist. This report was verified electronically.
--- NOTE | 2016-12-06 13:41 | RADRPT ---
EXAM DATE/TIME: 12/06/2016 12:34 [facility] COMPARISON: No previous studies available for comparison. INDICATIONS : Trauma, fall today. RADIATION DOSE: 16.87 CTDIvol (mGy) MEDICAL HISTORY : Non-responsive. SURGICAL HISTORY : Non-responsive. ENCOUNTER: Initial ACUITY: 1 day PAIN SCALE: 5/10 LOCATION: neck TECHNIQUE: Volumetric scanning of the cervical spine was performed. Multiplanar reconstructions in the sagittal, coronal and oblique axial planes were performed. Using automated exposure control and adjustment o f the mA and/or kV according to patient size, radiation dose was kept as low as reasonably achievable to obtain optimal diagnostic quality images. DICOM format image data is available electronically f or review and comparison. FINDINGS: There is moderate degenerative disc disease and facet arthropathy. No acute fracture or spondylolisth esis. No prevertebral soft tissue swelling. Mild AP canal stenosis at C4-5-6-7. CONCLUSION: 1. No acute findings. Mild canal stenosis at C4-5-6-7. Amrit Magaña MD on December 06, 2016 at 13:36 Board Certified Radiologist. This report was verified electronically.
[2016-12-06 14:00] VITALS: BP_SYST 112; BP_SYST 114; BP_SYST 117; BP_DIAS 79; BP_DIAS 80; BP_DIAS 83; PULSE 88; RESP 19; TEMP 98; O2SAT 96
[2016-12-06 16:15] VITALS: BP 168/77; PULSE 73; RESP 18; TEMP 98.7; O2SAT 100
--- NOTE | 2016-12-06 16:27 | HHI.PR ---
Addendum to Inpatient Note Additional Information Patient's chart reviewed. Patient appears medically stable at this time. Will sign off. Please reconsult if needed. Discussed with Dr. Hale. Lindsay Duff Dec 06, 2016 16:27
[2016-12-06] MEDS: ACETAMINOPHEN 325 MG TAB PO PRN (17:40)
[2016-12-07 00:10] VITALS: BP 106/52; PULSE 69
[2016-12-07 05:49] VITALS: BP 116/59; PULSE 68; RESP 16; TEMP 97.6; O2SAT 97
[2016-12-07 05:53] VITALS: BP 138/64
[2016-12-07 06:18] VITALS: BP 116/59; PULSE 68; RESP 16; TEMP 97.6; O2SAT 97
[2016-12-07] MEDS: OLANZapine ODT 10 MG TAB PO SCH ×2 (09:15→21:00)
[2016-12-07] MEDS: busPIRone HCL 10 MG TAB PO SCH ×4 (09:15→18:00)
[2016-12-07] MEDS: ZIPRASIDONE HCL 60 MG CAP PO SCH ×2 (09:15→18:30)
[2016-12-07] MEDS: OXcarbazepine 600 MG TAB PO SCH ×2 (09:15→21:00)
--- NOTE | 2016-12-07 15:32 | HHI.PYPN ---
Subjective Remarks Pt seen and discussed with staff. She was agitated and yelling this morning and received haldol this morning. She has been oppositional with care. She is compliant with medications. She is a 1:1 for falls risk. Objective Alert: Yes [place]: Person, Place Mood: Calm Affect: Blunted Memory Intact: Comment (fair) Hallucinations: Other (No AVH) Delusions: No Delusion Type: Other (No delusions) Suicidal: Ideation (No SI) Homicidal: Ideation (No HI) Insight/Judgment poor Vitals/IOs Vital Signs Date Time Temp Pulse Resp B/P Pulse Ox O2 Delivery O2 Flow Rate FiO2 12/07/16 06:18 97.6 68 16 116/59 97 12/03/16 12:07 Room Air Assessment & Plan Problem List: (1) Adjustment disorder ICD Code: F43.20 (2) Intellectual disability ICD Code: F79 Assessment & Plan Continue current tx plan. Estimated LOS: days Justification for Cont. Inpt. impairments in safety Request HC Surrog/Guard Advoc?: Yes Problem Qualifiers (1) Adjustment disorder: Qualified Code: F43.25 - Adjustment disorder with mixed disturbance of emotions and conduct Doris Campos MD Dec 07, 2016 15:32
[2016-12-07 18:02] VITALS: BP 105/56; PULSE 69; RESP 18; TEMP 98.7; O2SAT 100
[2016-12-08 06:07] VITALS: BP 106/57; PULSE 71; RESP 16; TEMP 100.2; O2SAT 98
[2016-12-08 06:28] VITALS: TEMP 97.5
[2016-12-08] MEDS: ALUMINUM/MAGNESIUM/SIMETH 30 ML CUP PO PRN (06:37)
[2016-12-08] MEDS: busPIRone HCL 10 MG TAB PO SCH ×3 (09:18→18:12)
[2016-12-08] MEDS: ZIPRASIDONE HCL 60 MG CAP PO SCH ×2 (09:18→18:12)
[2016-12-08] MEDS: OXcarbazepine 600 MG TAB PO SCH ×2 (09:18→20:53)
[2016-12-08] MEDS: OLANZapine ODT 10 MG TAB PO SCH ×2 (09:19→20:52)
--- NOTE | 2016-12-08 13:05 | HHI.PYPN ---
Subjective Remarks Pt seen and discussed with staff. Pt remains on 1:1 and has been more calm and less irritable today. Compliant with medications. No aggression today. Engagement during interview is poor but she does state that she is in no pain or discomfort. No SI/HI Objective Alert: Yes [place]: Person, Place Mood: Calm Affect: Flat Memory Intact: Comment (fair) Hallucinations: Other (No AVH) Delusions: No Delusion Type: Other (No delusions) Suicidal: Ideation (No SI) Homicidal: Ideation (No HI) Insight/Judgment poor Vitals/IOs Vital Signs Date Time Temp Pulse Resp B/P Pulse Ox O2 Delivery O2 Flow Rate FiO2 12/08/16 06:28 97.5 12/08/16 06:07 71 16 106/57 98 Assessment & Plan Problem List: (1) Adjustment disorder ICD Code: F43.20 (2) Intellectual disability ICD Code: F79 Assessment & Plan Continue current tx plan. Estimated LOS: days Justification for Cont. Inpt. impairments in safety and self care Request HC Surrog/Guard Advoc?: Yes Problem Qualifiers (1) Adjustment disorder: Qualified Code: F43.25 - Adjustment disorder with mixed disturbance of emotions and conduct Doris Campos MD Dec 08, 2016 13:05
[2016-12-08 17:00] VITALS: BP 104/58; PULSE 85; RESP 17; TEMP 99.1; O2SAT 99
[2016-12-08] MEDS: ZOLPIDEM TARTRATE 5 MG TAB PO PRN (20:52)
[2016-12-08 21:31] VITALS: BP 104/58; PULSE 89; RESP 17; TEMP 99.1; O2SAT 99
[2016-12-09] MEDS: ALUMINUM/MAGNESIUM/SIMETH 30 ML CUP PO PRN (04:16)
[2016-12-09 06:06] VITALS: BP 112/57; PULSE 79; RESP 17; TEMP 98.1; O2SAT 97
[2016-12-09] MEDS: ZIPRASIDONE HCL 60 MG CAP PO SCH (08:06)
[2016-12-09] MEDS: OLANZapine ODT 10 MG TAB PO SCH (08:06)
[2016-12-09] MEDS: OXcarbazepine 600 MG TAB PO SCH ×2 (08:07→20:38)
[2016-12-09] MEDS: ACETAMINOPHEN 325 MG TAB PO PRN ×2 (08:07→13:37)
[2016-12-09] MEDS: busPIRone HCL 10 MG TAB PO SCH ×3 (08:07→18:00)
[2016-12-09] MEDS: LORazepam 2 MG TAB PO PRN (08:08)
--- NOTE | 2016-12-09 10:37 | HHI.PYPN ---
Subjective Remarks Patient seen and examined with nurse. Chart reviewed. Case discussed with nursing staff reports the patient is somewhat restless and attention seeking. On my examination today, the patient is sitting calmly in the day area. She appears to be napping. She is easily awakened. She complains of stomach pain but offers no other complaints. No psychotic material. No evident side effects from medications. No physical complaints. Review of Systems ROS Limitations: Poor Historian Except as stated in HPI: all other systems reviewed are Neg Objective Alert: Yes [place]: Person, Place Mood: Calm Affect: Flat, Other (childlike) Memory Intact: Comment (fair) Hallucinations: Other (No AVH) Delusions: No Delusion Type: Other (no delusions elicited) Suicidal: Ideation (No SI) Homicidal: Ideation (No HI) Insight/Judgment Poor Remarks No motor abnormalities noted. Labs Labs reviewed. Vitals/IOs Vital Signs Date Time Temp Pulse Resp B/P Pulse Ox O2 Delivery O2 Flow Rate FiO2 12/09/16 06:06 98.1 79 17 112/57 97 Assessment & Plan Problem List: (1) Adjustment disorder ICD Code: F43.20 (2) Intellectual disability ICD Code: F79 Assessment & Plan Titrate Zyprexa to 10mg TID and taper Geodon to 40mg BIDPC. Continue Trileptal and BuSpar as ordered. Check BMP as patient has a history of hyponatremia and is on Trileptal which can be associated with this problem as well. Continue to monitor on the high acuity unit. Continue other medications and care as ordered. Justification for Cont. Inpt. Medication changes in process. High risk for decompensation in a less restrictive environment. Discharge Planning Placement Request HC Surrog/Guard Advoc?: Yes Problem Qualifiers (1) Adjustment disorder: Qualified Code: F43.25 - Adjustment disorder with mixed disturbance of emotions and conduct Igor Lawrence MD Dec 09, 2016 10:37
[2016-12-09] MEDS ORDERED: ZIPRASIDONE HCL 40 MG CAP PO SCH (18:00)
[2016-12-09] MEDS ORDERED: OLANZapine ODT 10 MG TAB PO SCH (18:00)
[2016-12-09 18:43] VITALS: BP 160/53; PULSE 81; RESP 17; TEMP 98.2; O2SAT 98
[2016-12-09 22:41] LABS: BICARBONATE 26.8 MEQ/L (21.0-32.0); POTASSIUM 5.3 MEQ/L (3.5-5.1)
[2016-12-10 01:05] LABS: BICARBONATE 27.4 MEQ/L (21.0-32.0); POTASSIUM 5.1 MEQ/L (3.5-5.1)
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
== END 2016-12-10 01:45 | disposition short-term general hospital (02) | DRG 882 ==
LOC: NEPD 17:36 → NEDA 12-03 15:54 → H260 12-03 16:23 → H270 12-05 16:05
PROVIDERS: ADMIT Psychiatry & Neurology Psychiatry; ATTEND Psychiatry & Neurology Psychiatry
DX: F43.25 Adjustment disorder with mixed disturbance of emotions and conduct (principal); E87.1 Hypo-osmolality and hyponatremia; J44.9 Chronic obstructive pulmonary disease, unspecified; F79 Unspecified intellectual disabilities; E78.00 Pure hypercholesterolemia, unspecified; F41.9 Anxiety disorder, unspecified; S00.83XA Contusion of other part of head, initial encounter; Y04.0XXA Assault by unarmed brawl or fight, initial encounter; Y93.9 Activity, unspecified; Y92.9 Unspecified place or not applicable; Y99.9 Unspecified external cause status; E11.9 Type 2 diabetes mellitus without complications; K21.9 Gastro-esophageal reflux disease without esophagitis; E07.9 Disorder of thyroid, unspecified; G40.909 Epilepsy, unspecified, not intractable, without status epilepticus; R10.9 Unspecified abdominal pain; S80.862A Insect bite (nonvenomous), left lower leg, initial encounter; S80.861A Insect bite (nonvenomous), right lower leg, initial encounter; W57.XXXA Bitten or stung by nonvenomous insect and other nonvenomous arthropods, initial encounter; Z91.14 Patient's other noncompliance with medication regimen; Z88.1 Allergy status to other antibiotic agents; Z88.2 Allergy status to sulfonamides; Z86.14 Personal history of Methicillin resistant Staphylococcus aureus infection; Z85.41 Personal history of malignant neoplasm of cervix uteri; Z88.8 Allergy status to other drugs, medicaments and biological substances; Z88.0 Allergy status to penicillin
CPT/HCPCS: 70450; 71010; 72125; 80048; 80053; 80061; 80307; 82550; 83036; 84484; 85025; 93005; 96372; J0515; J1630; J2060; J2250

== ENCOUNTER 2016-12-10 02:05 | Inpatient (IN) | payer OTHER ==
[2016-12-10] VITALS (7 sets, daily range): BP systolic 126–139; BP diastolic 63–71; PULSE 75–97; RESP 18–20; TEMP 97.4–99.2; O2SAT 70–100
[~2016-12-10 02:05] MED LIST changes: -ZIPR1CAP10 PO
[2016-12-10] MEDS: SODIUM CHLOR 0.9% 1000 ML INJ 1,000 ML IV SCH ×5 (03:02→23:03)
[2016-12-10] MEDS ORDERED: NALOXONE HCL 0.4 MG/ML AMP IV PRN (03:15)
[2016-12-10] MEDS ORDERED: SODIUM CHLORIDE 0.9% FLUSH 10 ML FLUSH IV FLUSH PRN (03:15)
--- NOTE | 2016-12-10 03:27 | HHI.HP ---
HPI Service [facility] Primary Care Physician Unknown Admission Diagnosis Diagnoses: Travel History International Travel<30 Days: No Contact w/Intl Traveler <30 Da: No Traveled to Known Affected Are: No History of Present Illness Admitted to psychiatry on December 03, 2016 with adjustment disorder, intellectual disability. Under [place] act. Patient was being treated with antipsychotics medications including Zyprexa 10 mg 3 times a day, Geodon tapering dose at 40 mg twice a day, Trileptal and BuSpar. Patient has history of hyponatremia and since Trileptal can cause hyponatremia, psychiatry had ordered for a routine BNP this morning which was done last night. Results will call back to me with hyponatremia of 113. Labs are repeated stat which also revealed hyponatremia of 117. Psychiatry nursing staff denies patient drinking excessive water. The also reported to me that patient is on one-on-one watch in 2700 unit because of history of frequent falls. They reported to me that imaging studies done were negative for the falls. Imaging studies including CT brain, CT cervical spinepersonally reviewed. No acute pathology. Patient herself is somewhat of a poor historian. However she does answer yes or no questions and it seems that her answers are quite consistent in regards to symptoms. She reports of nausea. She stated she vomited 2 times. She also reports of having had diarrhea for about 2 times a day, for past 5 days. Claims that the diarrhea was black in color. Also reports of chest pain. Not able to characterize sit well. Does not know whether it radiates or not. She states she was dizzy as well and did fall down a few times. Again reports of pain on urination and pain in her kidneys pointing to her flank areas. States that it was both sides of her kidneys. She is unsure whether she had fever. When asked whether she usually falls and uses a walker at home, she stated she never uses a walker or cane at home. She states she lives with her niece. Review of Systems Except as stated in HPI: all other systems reviewed are Neg Past Family Social History Past Medical History History of MRSA infection hx of hyponatremia adjustment disorder intellectual disability Past Surgical History hysterectomy Allergies: Coded Allergies: Penicillin (Verified Allergy, Severe, 10/16/16) Sulfa (Verified Allergy, Severe, 10/16/16) Bactrim (Unverified Allergy, Mild, 10/16/16) Lactose (Unverified Allergy, Mild, 10/16/16) *MDRO Multi-Drug Resistant Organism (Verified Adverse Reaction, Unknown, ) MRSA (arm)-10/16/16 Family History mother- cancer - dont know which type Social History quit smoking when she was 39 yo denies etoh abuse or drug abuse Physical Exam Physical Exam GENERAL: This is a well-nourished, well-developed patient, in no apparent distress. SKIN: No rashes, ecchymoses or lesions. Cool and dry. HEAD: Atraumatic. Normocephalic. No temporal or scalp tenderness. EYES: No scleral icterus. No injection or drainage. right eye blindness, ptosis ENT: Nose without bleeding, purulent drainage or septal hematoma. Airway patent. NECK; no jvd, CARDIOVASCULAR: Regular rate and rhythm without murmurs, gallops, or rubs. RESPIRATORY: Clear to auscultation. Breath sounds equal bilaterally. No wheezes , rales, or rhonchi. GASTROINTESTINAL: Abdomen soft, non-tender, nondistended. No guarding. MUSCULOSKELETAL: Extremities without clubbing, cyanosis, or edema. No calf tenderness. NEUROLOGICAL: Awake and alert.Motor and sensory grossly within normal limits. Normal speech. Laboratory labs that were done while pt is at psychiatry unit- reviewed Imaging ct imaging studies done at psychiatry unit reviewed Assessment and Plan Assessment and Plan Impression: Hyponatremiasymptomatic. Patient with complaints of falls, nausea, weakness. Etiology likely due to Trileptal. Patient herself reports that she drinks a lot of water. However psychiatry nursing staff tells me that patient was only drinking water only from what they provide in this was not excessive. History of MRSA infection hx of hyponatremia adjustment disorder intellectual disability Plan: Stop Trileptal. Serum osmolarity. Urine osmolarity. Urine sodium level Psychiatry consult for adjustment of medications. Sitter at the bedside. Patient is under [place] act. Fall precautions. DVT prophylaxiswith SCD. Discussed Condition With patient, psychiatry nurse, medical floor nurse Physician Certification 2 Midnight Certification Type: Admission for Inpatient Services Order for Inpatient Services The services are ordered in accordance with Medicare regulations or non- Medicare payer requirements, as applicable. In the case of services not specified as inpatient-only, they are appropriately provided as inpatient services in accordance with the 2-midnight benchmark. Estimated LOS (days): 2 days is the estimated time the patient will need to remain in the hospital, assuming treatment plan goals are met and no additional complications. Post-Hospital Plan: Home Iwona Perez MD Dec 10, 2016 03:27
[2016-12-10 04:33] LABS: AUTOMATED NEUTROPHIL # 6.3 TH/MM3 (1.8-7.7); BASOPHIL % 0.3 % (0.0-2.0); EOSINOPHIL % 0.2 % (0.0-4.0); HEMATOCRIT 29.1 % (35.0-46.0); HEMO FLAGS DIFF FINAL; LYMPH % 7.9 % (9.0-44.0); LYMPHOCYTE # 0.6 TH/MM3 (1.0-4.8); MEAN CELL VOLUME 84.8 FL (80.0-100.0); MEAN CORPUSCULAR HEMOGLOBIN 28.7 PG (27.0-34.0); MEAN CORPUSCULAR HGB CONC 33.8 % (32.0-36.0); MONO % 7.5 % (0.0-8.0); NEUT % 84.1 % (16.0-70.0); PLATELET COUNT 165 TH/MM3 (150-450); RED BLOOD COUNT 3.44 MIL/MM3 (4.00-5.30); RED CELL DISTRIBUTION WIDTH 14.1 % (11.6-17.2); WHITE BLOOD COUNT 7.5 TH/MM3 (4.0-11.0)
[2016-12-10 05:02] LABS: ANION GAP 6 MEQ/L (5-15); BICARBONATE 28.1 MEQ/L (21.0-32.0); BLOOD UREA NITROGEN 16 MG/DL (7-18); CHLORIDE 83 MEQ/L (98-107); GLOMERULAR FILTRATION RATE 80 ML/MIN (>89); POTASSIUM 4.4 MEQ/L (3.5-5.1)
[2016-12-10 05:10] LABS: CREATINE KINASE 59 U/L (26-192)
[2016-12-10 05:14] LABS: SODIUM (NA) 117 MEQ/L (136-145)
[2016-12-10] MEDS: SODIUM CHLORIDE 0.9% FLUSH 10 ML FLUSH IV FLUSH SCH ×2 (07:08→21:00)
[2016-12-10 10:30] LABS: BACTERIA, URINE OCC /hpf; BLOOD, URINE NEG (NEG); COMMENT (UR) CULT NOT INDICATED; CULTURE IF INDICATED CULT NOT INDICATED; GLUCOSE,URINE NEG (NEG); KETONE, URINE NEG (NEG); NITRITE,URINE NEG (NEG); PH, URINE 7.5 (5.0-8.5); SQUAMOUS EPITHELIAL CELL URINE <1 /hpf (0-5); URINE COLOR LIGHT-YELLOW (YELLW/STRAW)
--- NOTE | 2016-12-10 13:14 | HHI.PYPN ---
Subjective Remarks Patient was seen for psychiatric reevaluation today, patient was found sleeping , but easily arousable, she reports good mood today, childish as usual, her plan is to paint today, she denies hopelessness, she denies helplessness, she denies suicidal or homicidal ideation, she denies visual and auditory hallucinations. Patient has very concrete thought, oriented 3. As per nurses in charge, patient has been irritable, unpredictable, but no agitated or aggressive at this moment. Review of Systems Constitutional: DENIES: Diaphoretic episodes, Fatigue, Fever, Weight gain, Weight loss, Chills, Dizziness, Change in appetite, Night Sweats Eyes: DENIES: Blurred vision, Diplopia, Eye inflammation, Eye pain, Vision loss , Photosensitivity, Double Vision Ears, nose, mouth, throat: DENIES: Tinnitus, Hearing loss, Vertigo, Nasal discharge, Oral lesions, Throat pain, Hoarseness, Ear Pain, Running Nose, Epistaxis, Sinus Pain, Toothache, Odynophagia Respiratory: DENIES: Apneas, Cough, Snoring, Wheezing, Hemoptysis, Sputum production, Shortness of breath Cardiovascular: DENIES: Chest pain, Palpitations, Syncope, Dyspnea on Exertion , PND, Lower Extremity Edema, Orthopnea, Claudication Gastrointestinal: DENIES: Abdominal pain, Black stools, Bloody stools, Constipation, Diarrhea, Nausea, Vomiting, Difficulty Swallowing, Anorexia Musculoskeletal: DENIES: Joint pain, Muscle aches, Stiffness, Joint Swelling, Back pain, Neck pain Integumentary: DENIES: Abnormal pigmentation, Pruritus, Rash, Nail changes, Breast masses, Breast skin changes, Nipple discharge Immunologic/allergic: DENIES: Eczema, Urticaria Neurologic: DENIES: Abnormal gait, Headache, Localized weakness, Paresthesias, Seizures, Speech Problems, Tremor, Poor Balance Objective Alert: Yes [place]: Person, Place, Date Mood: Calm Affect: Restricted Memory Intact: Immediate, Recent Hallucinations: Other (she denies) Delusions: No Delusion Type: Other (none elicited at this moment) Suicidal: Ideation (no SI) Homicidal: Ideation (no HI) Insight/Judgment Fair Labs Test 12/10/16 12/10/16 04:20 09:50 White Blood Count 7.5 TH/MM3 Red Blood Count 3.44 MIL/MM3 Hemoglobin 9.9 GM/DL Hematocrit 29.1 % Mean Corpuscular Volume 84.8 FL Mean Corpuscular Hemoglobin 28.7 PG Mean Corpuscular Hemoglobin 33.8 % Concent Red Cell Distribution Width 14.1 % Platelet Count 165 TH/MM3 Mean Platelet Volume 8.1 FL Neutrophils (%) (Auto) 84.1 % Lymphocytes (%) (Auto) 7.9 % Monocytes (%) (Auto) 7.5 % Eosinophils (%) (Auto) 0.2 % Basophils (%) (Auto) 0.3 % Neutrophils # (Auto) 6.3 TH/MM3 Lymphocytes # (Auto) 0.6 TH/MM3 Monocytes # (Auto) 0.6 TH/MM3 Eosinophils # (Auto) 0.0 TH/MM3 Basophils # (Auto) 0.0 TH/MM3 CBC Comment DIFF FINAL Differential Comment Sodium Level 117 MEQ/L Potassium Level 4.4 MEQ/L Chloride Level 83 MEQ/L Carbon Dioxide Level 28.1 MEQ/L Anion Gap 6 MEQ/L Blood Urea Nitrogen 16 MG/DL Creatinine 0.75 MG/DL Estimat Glomerular Filtration 80 ML/MIN Rate Random Glucose 101 MG/DL Serum Osmolality 247 MOSM/KG Calcium Level 7.9 MG/DL Total Creatine Kinase 59 U/L Troponin I LESS THAN 0.02 NG/ML Urine Color LIGHT-YELLOW Urine Turbidity HAZY Urine pH 7.5 Urine Specific [place] 1.012 Urine Protein NEG mg/dL Urine Glucose (UA) NEG mg/dL Urine Ketones NEG mg/dL Urine Occult Blood NEG Urine Nitrite NEG Urine Bilirubin NEG Urine Urobilinogen LESS THAN 2.0 MG/DL Urine Leukocyte Esterase NEG Urine RBC LESS THAN 1 /hpf Urine WBC LESS THAN 1 /hpf Urine Squamous Epithelial <1 /hpf Cells Urine Amorphous Sediment MOD Urine Bacteria OCC /hpf Microscopic Urinalysis Comment CULT NOT INDICATED Urine Osmolality 422 MOSM/KG Urine Random Sodium 58 MEQ/L Vitals/IOs Vital Signs Date Time Temp Pulse Resp B/P Pulse Ox O2 Delivery O2 Flow Rate FiO2 12/10/16 12:05 98.6 94 20 133/65 98 Assessment & Plan Problem List: (1) Schizoaffective disorder, bipolar type Assessment & Plan: On psychiatric evaluation today patient is found calm, cooperative, future oriented, no complaints. However, patient is well known by unpredictable behavior, hostility, periodic agitation and aggressiveness. Will hold Trileptal due to potential etiology of hyponatremia. Would restart olanzapine 10 mg twice a day, Zyprexa done 40 mg twice a day, BuSpar 10 mg 3 times a day, benztropine 1 mg twice a day, Haldol 5 mg IM every 6 hours when necessary aggressive behavior and agitation. Would consider to start Depakote 500 mg twice a day to substitute Trileptal, but we'll continue observing longitudinally before taking this decision. Patient will remain in one-to-one due to her high risk of aggressive behavior and agitation in the floor. We'll follow-up. ICD Code: F25.0 (2) Intellectual disability ICD Code: F79 Assessment & Plan Estimated LOS: days Justification for Cont. Inpt. Once patient is medically clear, she will go back to psychiatric unit to continue her stabilization. Ab Stafford MD Dec 10, 2016 13:14
[2016-12-10] MEDS: OLANZapine 10 MG TAB PO SCH ×2 (13:39→21:41)
[2016-12-10] MEDS: ZIPRASIDONE HCL 40 MG CAP PO SCH ×2 (13:39→17:11)
[2016-12-10] MEDS: busPIRone HCL 10 MG TAB PO SCH ×2 (13:39→21:41)
--- NOTE | 2016-12-10 17:18 | EKG ---
Date Performed: 12/10/2016 Time Performed: 08:17:26 PTAGE: 55 years EKG: Sinus rhythm NORMAL ECG PREVIOUS TRACING : 12/02/2016 18.09 Compared to prior tracing no significant change DOCTOR: Tevin Gallegos Interpretating Date/Time 12/10/2016 17:16:33
--- NOTE | 2016-12-10 17:18 | EKG ---
Date Performed: 12/10/2016 Time Performed: 10:24:01 PTAGE: 55 years EKG: Sinus rhythm NORMAL ECG PREVIOUS TRACING : 12/10/2016 08.17 Compared to prior tracing no significant change DOCTOR: Tevin Gallegos Interpretating Date/Time 12/10/2016 17:16:50
[2016-12-10 18:42] LABS: ANION GAP 6 MEQ/L (5-15); BICARBONATE 28.2 MEQ/L (21.0-32.0); BLOOD UREA NITROGEN 12 MG/DL (7-18); CHLORIDE 84 MEQ/L (98-107); GLOMERULAR FILTRATION RATE 137 ML/MIN (>89); POTASSIUM 4.1 MEQ/L (3.5-5.1)
[2016-12-10 18:47] LABS: CREATINE KINASE 56 U/L (26-192)
[2016-12-10 18:51] LABS: SODIUM (NA) 118 MEQ/L (136-145)
[2016-12-10] MEDS: BENZTROPINE MESYLATE 1 MG TAB PO SCH (21:41)
[2016-12-10 23:53] LABS: ANION GAP 7 MEQ/L (5-15); BICARBONATE 25.8 MEQ/L (21.0-32.0); BLOOD UREA NITROGEN 12 MG/DL (7-18); CHLORIDE 86 MEQ/L (98-107); GLOMERULAR FILTRATION RATE 180 ML/MIN (>89)
[2016-12-10 23:55] LABS: SODIUM (NA) 119 MEQ/L (136-145)
[2016-12-11] VITALS: BP 125/89; PULSE 89; RESP 20; TEMP 98.1; O2SAT 96
[2016-12-11 00:24] LABS: CALCIUM-PROTEIN CORRECTED 8.5 MG/DL (8.5-10.1)
[2016-12-11 00:26] LABS: CREATINE KINASE 55 U/L (26-192)
[2016-12-11 05:00] VITALS: BP 120/84; PULSE 80; RESP 19; TEMP 97.3; O2SAT 97
[2016-12-11] MEDS: busPIRone HCL 10 MG TAB PO SCH ×3 (05:19→19:55)
[2016-12-11] MEDS: SODIUM CHLOR 0.9% 1000 ML INJ 1,000 ML IV SCH ×3 (05:20→23:03)
[2016-12-11] MEDS: OLANZapine 10 MG TAB PO SCH ×2 (07:15→19:55)
[2016-12-11] MEDS: BENZTROPINE MESYLATE 1 MG TAB PO SCH ×2 (07:15→19:55)
[2016-12-11] MEDS: ZIPRASIDONE HCL 40 MG CAP PO SCH ×2 (07:16→16:36)
[2016-12-11] MEDS: SODIUM CHLORIDE 0.9% FLUSH 10 ML FLUSH IV FLUSH SCH ×2 (07:16→19:56)
[2016-12-11 07:59] VITALS: PULSE 59
[2016-12-11 08:00] VITALS: BP 132/65; PULSE 90; RESP 19; TEMP 97.9; O2SAT 95
[2016-12-11] MEDS: HALOPERIDOL LACTATE 5 MG/ML AMP IM PRN ×2 (09:17→14:50)
--- NOTE | 2016-12-11 10:35 | HHI.PR ---
Subjective Remarks Only slight improvement to time thus far. Salt wasting syndrome is suspected. Further testing for this is in process. Patient became belligerent this morning and is in 4 point restraints. She has had mood disturbances prior admits and etiology is not suspected to be related to her hyponatremia. Objective Vital Signs Date Time Temp Pulse Resp B/P Pulse Ox O2 Delivery O2 Flow Rate FiO2 12/11/16 08:00 97.9 90 19 132/65 95 12/11/16 07:59 59 12/11/16 05:00 97.3 80 19 120/84 97 12/11/16 00:00 98.1 89 20 125/89 96 12/10/16 20:00 97.4 75 18 126/63 95 12/10/16 16:01 99.2 87 20 134/70 98 12/10/16 12:05 98.6 94 20 133/65 98 I/O 12/10/16 12/10/16 12/10/16 12/11/16 12/11/16 12/11/16 07:00 15:00 23:00 07:00 15:00 23:00 Intake Total 100 ml 1552 ml 1650 ml Output Total 1200 ml 2000 ml Balance 100 ml 352 ml -350 ml Intake Oral 100 ml 240 ml 650 ml IV Total 1312 ml 1000 ml Output Urine Total 1200 ml 2000 ml # Voids 0 1 # Bowel Movements 0 0 Result Diagram: 12/10/16 0420 12/10/16 2306 Objective Remarks GENERAL: NAD, A&Ox1 related to mental retardation HEAD: Normocephalic. NECK: Supple, trachea midline. No lymphadenopathy. EYES: No scleral icterus. No injection or drainage. CARDIOVASCULAR: Regular rate and rhythm without murmurs, gallops, or rubs. RESPIRATORY: Breath sounds equal bilaterally. No accessory muscle use. GASTROINTESTINAL: Abdomen soft, non-tender, nondistended. MUSCULOSKELETAL: No cyanosis, or edema. SKIN: Warm and dry. NEURO: No focal neurological deficitis. Medications and IVs Administered Medications Medications (Trade) Dose Ordered Sig/Eloise Route PRN Reason Start Time Stop Time Status Last Admin Dose Admin Sodium Chloride (NS 1000 ml Inj) 1,000 ml @ 125 mls/hr Q8H IV 12/10/16 03:02 12/11/16 05:20 Sodium Chloride (NS Flush) 2 ml BID IV FLUSH 12/10/16 09:00 12/11/16 07:16 Olanzapine (ZyPREXA) 10 mg Q12HR PO 12/10/16 14:00 12/11/16 07:15 Ziprasidone (Geodon) 40 mg BIDPC PO 12/10/16 13:15 12/11/16 07:16 Haloperidol Lactate (Haldol Inj) 5 mg Q6H PRN IM agitation/aggresive 12/10/16 13:15 12/11/16 09:17 Buspirone HCl (Buspar) 10 mg Q8HR PO 12/10/16 14:00 12/11/16 05:19 Benztropine Mesylate (Cogentin) 1 mg Q12HR PO 12/10/16 21:00 12/11/16 07:15 A/P Problem List: (1) Intellectual disability ICD Code: F79 (2) Psychosis ICD Code: F29 (3) Altered mental status ICD Code: R41.82 (4) Hyponatremia ICD Code: E87.1 Assessment and Plan Assessment and plan 55-year-old female with mental retardation who is admitted with severe hyponatremia. Past history of hyponatremia. Aggravated today with intentions to harm others himself. 4-point restraints placed. Urine osmolality testing is pending. Hyponatremia Continue IV hydration with normal saline Follow sodium levels Attempt gradual improvement Start workup for salt wasting syndrome as improvement is slow going thus far Trileptal has been discontinued Mental retardation Schizoaffective disorder Supportive care DVT prophylaxis SCDs Mario Christensen MD Dec 11, 2016 10:35
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
[2016-12-11] MEDS: DIVALPROEX SODIUM E.R. 500 MG TAB PO SCH ×2 (11:00→19:55)
[2016-12-11 11:57] VITALS: BP 119/79; PULSE 86; RESP 19; TEMP 96.7; O2SAT 96
[2016-12-11 12:11] LABS: AUTOMATED NEUTROPHIL # 3.1 TH/MM3 (1.8-7.7); BASOPHIL % 0.4 % (0.0-2.0); EOSINOPHIL % 0.3 % (0.0-4.0); HEMATOCRIT 30.9 % (35.0-46.0); HEMO FLAGS DIFF FINAL; LYMPHOCYTE # 0.5 TH/MM3 (1.0-4.8); MEAN CELL VOLUME 85.6 FL (80.0-100.0); MEAN CORPUSCULAR HEMOGLOBIN 28.7 PG (27.0-34.0); MEAN CORPUSCULAR HGB CONC 33.6 % (32.0-36.0); MONO % 9.4 % (0.0-8.0); NEUT % 77.9 % (16.0-70.0); PLATELET COUNT 155 TH/MM3 (150-450); RED BLOOD COUNT 3.61 MIL/MM3 (4.00-5.30); RED CELL DISTRIBUTION WIDTH 14.1 % (11.6-17.2)
[2016-12-11 12:38] LABS: BICARBONATE 28.9 MEQ/L (21.0-32.0); POTASSIUM 4.2 MEQ/L (3.5-5.1)
[2016-12-11 19:25] LABS: BICARBONATE 30.5 MEQ/L (21.0-32.0)
[2016-12-11] MEDS: SODIUM CHLORIDE 1 GRAM TAB PO SCH (19:55)
[2016-12-11 20:00] VITALS: BP 114/61; PULSE 84; RESP 18; TEMP 97; O2SAT 100
--- NOTE | 2016-12-11 23:30 | EKG ---
Date Performed: 12/10/2016 Time Performed: 17:44:19 PTAGE: 55 years EKG: Sinus rhythm NORMAL ECG PREVIOUS TRACING : 12/10/2016 10.24 Compared to prior tracing no significant change DOCTOR: Ira Deluca Interpretating Date/Time 12/11/2016 23:29:52
[2016-12-12] VITALS: BP 134/62; PULSE 89; RESP 20; TEMP 97.2; O2SAT 96
[2016-12-12 04:00] VITALS: BP_SYST 127; BP_SYST 143; BP_DIAS 65; BP_DIAS 80; PULSE 102; PULSE 79; RESP 18; RESP 22; TEMP 98.5; TEMP 98.9; O2SAT 98; O2SAT 99
[2016-12-12] MEDS: busPIRone HCL 10 MG TAB PO SCH ×2 (06:05→13:34)
[2016-12-12] MEDS: SODIUM CHLOR 0.9% 1000 ML INJ 1,000 ML IV SCH (06:06)
[2016-12-12 07:25] VITALS: BP 122/65; PULSE 81; RESP 16; TEMP 96.8; O2SAT 98
[2016-12-12] MEDS: DIVALPROEX SODIUM E.R. 500 MG TAB PO SCH (09:11)
[2016-12-12] MEDS: BENZTROPINE MESYLATE 1 MG TAB PO SCH (09:11)
[2016-12-12] MEDS: SODIUM CHLORIDE 1 GRAM TAB PO SCH (09:11)
[2016-12-12] MEDS: ZIPRASIDONE HCL 40 MG CAP PO SCH (09:12)
[2016-12-12] MEDS: SODIUM CHLORIDE 0.9% FLUSH 10 ML FLUSH IV FLUSH SCH (09:12)
[2016-12-12] MEDS: OLANZapine 10 MG TAB PO SCH (09:12)
[2016-12-12 09:15] VITALS: PULSE 68
[2016-12-12 10:03] LABS: BICARBONATE 28.5 MEQ/L (21.0-32.0); POTASSIUM 4.2 MEQ/L (3.5-5.1)
--- NOTE | 2016-12-12 10:07 | HHI.PR ---
Subjective Remarks in no acute distress. denies pain. sitter at the bedside. Objective Vitals Vital Signs Date Time Temp Pulse Resp B/P Pulse Ox O2 Delivery O2 Flow Rate FiO2 12/12/16 07:25 96.8 81 16 122/65 98 12/12/16 04:00 98.5 79 22 143/65 99 12/12/16 00:00 97.2 89 20 134/62 96 12/11/16 20:00 97.0 84 18 114/61 100 12/11/16 11:57 96.7 86 19 119/79 96 I/O 12/11/16 12/11/16 12/11/16 12/12/16 12/12/16 12/12/16 07:00 15:00 23:00 07:00 15:00 23:00 Intake Total 1650 ml 240 ml 2219 ml 1000 ml Output Total 2000 ml 2100 ml Balance -350 ml 240 ml 2219 ml -1100 ml Intake Oral 650 ml 240 ml 480 ml IV Total 1000 ml 1739 ml 1000 ml Output Urine Total 2000 ml 2100 ml # Voids 1 2 2 # Bowel Movements 0 0 Result Diagram: 12/11/16 1140 12/11/16 1834 Objective Remarks GENERAL: This is a well-nourished, well-developed patient, in no apparent distress. CARDIOVASCULAR: Regular rate and regular rhythm without murmurs, gallops, or rubs. RESPIRATORY: Clear to auscultation. Breath sounds equal bilaterally. No wheezes , rales, or rhonchi. GASTROINTESTINAL: Abdomen soft, non-tender, nondistended. Normal, active bowel sounds MUSCULOSKELETAL: Extremities without clubbing, cyanosis, or edema. NEURO: Awake and alert Procedures none Medications and IVs Current Medications Sodium Chloride (NS 1000 ml Inj) 1,000 ml @ 125 mls/hr Q8H IV Last administered on 12/12/16 06:06; Start 12/10/16 at 03:02 Sodium Chloride (NS Flush) 2 ml UNSCH PRN IV FLUSH FLUSH AFTER USING IV ACCESS ; Start 12/10/16 at 03:15 Sodium Chloride (NS Flush) 2 ml BID IV FLUSH Last administered on 12/12/16 09: 12; Start 12/10/16 at 09:00 Naloxone HCl (Narcan Inj) 0.4 mg UNSCH PRN IV SEE LABEL COMMENTS; Start at 03:15 Olanzapine (ZyPREXA) 10 mg Q12HR PO Last administered on 12/12/16 09:12; Start 12/10/16 at 14:00 Ziprasidone (Geodon) 40 mg BIDPC PO Last administered on 12/12/16 09:12; Start 12/10/16 at 13:15 Haloperidol Lactate (Haldol Inj) 5 mg Q6H PRN IM agitation/aggresive Last administered on 12/11/16 14:50; Start 12/10/16 at 13:15 Buspirone HCl (Buspar) 10 mg Q8HR PO Last administered on 12/12/16 06:05; Start 12/10/16 at 14:00 Benztropine Mesylate (Cogentin) 1 mg Q12HR PO Last administered on 12/12/16 09 :11; Start 12/10/16 at 21:00 Divalproex Sodium (Depakote Er) 500 mg BID PO Last administered on 12/12/16 09 :11; Start 12/11/16 at 10:45 Sodium Chloride (Sodium Chloride) 1 gm BID PO Last administered on 12/12/16 09 :11; Start 12/11/16 at 21:00 A/P Assessment and Plan A/P Hyponatremia- has much improved. continue sodium tablet. Follow sodium levels Mental retardation Schizoaffective disorder Supportive care sitter at the bedside. psych follow-up appreciated. DVT prophylaxis SCDs Discharge Planning patient is medically clear for discharge to the psych unit. d/w . Rose Kingston MD Dec 12, 2016 10:07
[2016-12-12] MEDS ORDERED: SODI1TAB PO (10:09)
[2016-12-12] MEDS ORDERED: DEPA500T3 PO (10:09)
[2016-12-12] MEDS ORDERED: ZIPR40 PO (10:09)
[2016-12-12] MEDS ORDERED: OLAN10TA PO (10:09)
[2016-12-12] MEDS ORDERED: Benztropine PO (10:09)
--- NOTE | 2016-12-12 10:09 | HHI.DCPOC ---
Discharge Care Plan Diagnosis: (1) Schizoaffective disorder, bipolar type Goals to Promote Your Health * To prevent worsening of your condition and complications * To maintain your health at the optimal level Directions to Meet Your Goals Take your medications as prescribed Follow your dietary instruction Follow activity as directed Keep your appointments as scheduled Take your immunizations and boosters as scheduled If your symptoms worsen call your PCP, if no PCP go to Urgent Care Center or Emergency Room Smoking is Dangerous to Your Health. Avoid second hand smoke Call the 24-hour hour crisis hotline for domestic abuse at Rose Kingston MD Dec 12, 2016 10:09
--- NOTE | 2016-12-12 10:10 | HHI.DS ---
Discharge Summary Admission Date Dec 10, 2016 at 02:05 Discharge Date: Dec 12, 2016 Admitting Diagnosis hyponatremia (1) Hyponatremia ICD Code: E87.1 Diagnosis: Principal Procedures none Brief History - From Admission Admitted to psychiatry on December 03, 2016 with adjustment disorder, intellectual disability. Under [place] act. Patient was being treated with antipsychotics medications including Zyprexa 10 mg 3 times a day, Geodon tapering dose at 40 mg twice a day, Trileptal and BuSpar. Patient has history of hyponatremia and since Trileptal can cause hyponatremia, psychiatry had ordered for a routine BNP this morning which was done last night. Results will call back to me with hyponatremia of 113. Labs are repeated stat which also revealed hyponatremia of 117. Psychiatry nursing staff denies patient drinking excessive water. The also reported to me that patient is on one-on-one watch in 2700 unit because of history of frequent falls. They reported to me that imaging studies done were negative for the falls. Imaging studies including CT brain, CT cervical spinepersonally reviewed. No acute pathology. Patient herself is somewhat of a poor historian. However she does answer yes or no questions and it seems that her answers are quite consistent in regards to symptoms. She reports of nausea. She stated she vomited 2 times. She also reports of having had diarrhea for about 2 times a day, for past 5 days. Claims that the diarrhea was black in color. Also reports of chest pain. Not able to characterize sit well. Does not know whether it radiates or not. She states she was dizzy as well and did fall down a few times. Again reports of pain on urination and pain in her kidneys pointing to her flank areas. States that it was both sides of her kidneys. She is unsure whether she had fever. When asked whether she usually falls and uses a walker at home, she stated she never uses a walker or cane at home. She states she lives with her niece. CBC/BMP: 12/11/16 1140 12/12/16 0847 Significant Findings Laboratory Tests Test 12/10/16 12/10/16 12/10/16 12/10/16 04:20 09:50 12:58 17:21 Red Blood Count 3.44 MIL/MM3 (4.00-5.30) Hemoglobin 9.9 GM/DL (11.6-15.3) Hematocrit 29.1 % (35.0-46.0) Neutrophils (%) (Auto) 84.1 % (16.0-70.0) Lymphocytes (%) (Auto) 7.9 % (9.0-44.0) Lymphocytes # (Auto) 0.6 TH/MM3 (1.0-4.8) Sodium Level 117 MEQ/L 117 MEQ/L 118 MEQ/L (136-145) (136-145) (136-145) Chloride Level 83 MEQ/L 84 MEQ/L (98-107) (98-107) Estimat Glomerular Filtration 80 ML/MIN (>89) Rate Serum Osmolality 247 MOSM/KG (275-295) Calcium Level 7.9 MG/DL 7.6 MG/DL (8.5-10.1) (8.5-10.1) Troponin I LESS THAN 0.02 LESS THAN 0.02 NG/ML NG/ML (0.02-0.05) (0.02-0.05) Urine Turbidity HAZY (CLEAR) Urine Bacteria OCC /hpf (NONE) Creatinine 0.47 MG/DL (0.50-1.00) Test 12/10/16 12/11/16 12/11/16 12/11/16 23:06 11:40 12:25 18:34 Sodium Level 119 MEQ/L 131 MEQ/L 134 MEQ/L (136-145) (136-145) (136-145) Chloride Level 86 MEQ/L 97 MEQ/L (98-107) (98-107) Creatinine 0.37 MG/DL 0.42 MG/DL (0.50-1.00) (0.50-1.00) Random Glucose 117 MG/DL 138 MG/DL (74-106) (74-106) Calcium Level 7.3 MG/DL 8.3 MG/DL 8.1 MG/DL (8.5-10.1) (8.5-10.1) (8.5-10.1) Troponin I LESS THAN 0.02 NG/ML (0.02-0.05) Total Protein 4.9 GM/DL (6.4-8.2) Red Blood Count 3.61 MIL/MM3 (4.00-5.30) Hemoglobin 10.4 GM/DL (11.6-15.3) Hematocrit 30.9 % (35.0-46.0) Neutrophils (%) (Auto) 77.9 % (16.0-70.0) Monocytes (%) (Auto) 9.4 % (0.0-8.0) Lymphocytes # (Auto) 0.5 TH/MM3 (1.0-4.8) Urine Osmolality 138 MOSM/KG (300-1300) Anion Gap 4 MEQ/L (5-15) Test 12/12/16 08:47 Sodium Level 135 MEQ/L (136-145) Random Glucose 143 MG/DL (74-106) PE at Discharge GENERAL: This is a well-nourished, well-developed patient, in no apparent distress. CARDIOVASCULAR: Regular rate and regular rhythm without murmurs, gallops, or rubs. RESPIRATORY: Clear to auscultation. Breath sounds equal bilaterally. No wheezes , rales, or rhonchi. GASTROINTESTINAL: Abdomen soft, non-tender, nondistended. Normal, active bowel sounds MUSCULOSKELETAL: Extremities without clubbing, cyanosis, or edema. NEURO: Awake and alert Hospital Course Hyponatremia- has much improved. continue sodium tablet. Follow sodium levels Mental retardation Schizoaffective disorder Supportive care sitter at the bedside. psych follow-up appreciated. DVT prophylaxis SCDs Pt Condition on Discharge: Fair Discharge Disposition: Disc to Psych Care Fac Discharge Time: <= 30 minutes Discharge Instructions DIET: Follow Instructions for: As Tolerated, No Restrictions Activities you can perform: Regular-No Restrictions Follow up Referrals: PCP Follow-up Psychiatry Adult New Medications: Divalproex ER (Depakote ER) 500 Mg Jennifer 500 MG PO BID schizophrenia Days 30 Ref 0 TAB Olanzapine (Olanzapine) 10 Mg Tab 10 MG PO Q12HR schizophrenia Days 30 Ref 0 TAB Sodium Chloride (Sodium Chloride) 1 Gm Tab 1 GM PO BID hyponatremia Days 5 Ref 0 TAB Ziprasidone (Geodon) 40 Mg Cap 40 MG PO BIDPC schizophrenia Days 30 Ref 0 CAP ([Benztropine]) 1 MG TAB 1 MG PO Q12HR schizophrenia Days 30 Ref 0 TAB Continued Medications: Buspirone (Buspirone) 10 Mg Tab 10 MG PO TID Anxiety Ref 0 TAB Discontinued Medications: Clindamycin (Clindamycin) 300 Mg Cap 300 MG PO TID Infection #15 Ref 0 CAP Oxcarbazepine (Trileptal) 600 Mg Tab 1200 MG PO BID Seizure Control #60 Ref 0 TAB Rose Kingston MD Dec 12, 2016 10:10
[2016-12-12 11:59] VITALS: BP 105/72; PULSE 81; RESP 16; TEMP 97.7; O2SAT 98
== END 2016-12-12 13:57 | DRG 641 ==
LOC: OBSVTOIN 02:05 → N05A 02:05
PROVIDERS: ADMIT Internal Medicine; ATTEND Internal Medicine
DX: E87.1 Hypo-osmolality and hyponatremia (principal); Z78.1 Physical restraint status; N28.89 Other specified disorders of kidney and ureter; R19.7 Diarrhea, unspecified; F43.20 Adjustment disorder, unspecified; F79 Unspecified intellectual disabilities; F25.0 Schizoaffective disorder, bipolar type; Z86.14 Personal history of Methicillin resistant Staphylococcus aureus infection; Z87.891 Personal history of nicotine dependence; Z91.81 History of falling
CPT/HCPCS: 80048; 81001; 82550; 83930; 83935; 84155; 84295; 84300; 84484; 85025; 93005; J1630; J7030

== ENCOUNTER 2016-12-12 14:40 | Inpatient (IN) | payer OTHER ==
[~2016-12-12] VITALS: Ht 165.1 cm; Wt 72.2 kg
[2016-12-12 14:15] VITALS: BP 150/69; PULSE 90; RESP 20; TEMP 97.6; O2SAT 99
[~2016-12-12 14:40] MED LIST changes: +Benztropine PO; +DEPA500T3 PO; +OLAN10TA PO; +SODI1TAB PO; +ZIPR40 PO
[2016-12-12] MEDS: OLANZapine 10 MG TAB PO SCH (20:10)
[2016-12-12] MEDS: DIVALPROEX SODIUM E.R. 500 MG TAB PO SCH (20:10)
[2016-12-12] MEDS: BENZTROPINE MESYLATE 1 MG TAB PO SCH (20:10)
[2016-12-12] MEDS: SODIUM CHLORIDE 1 GRAM TAB PO SCH (20:12)
[2016-12-12] MEDS: ZIPRASIDONE HCL 40 MG CAP PO SCH (20:12)
[2016-12-12] MEDS ORDERED: BENZTROPINE MESYLATE 1 MG PO SCH (21:00)
[2016-12-13 05:45] VITALS: BP 96/51; PULSE 83; RESP 18; TEMP 98.4; O2SAT 97
[2016-12-13] MEDS: DIVALPROEX SODIUM E.R. 500 MG TAB PO SCH ×2 (10:00→20:41)
[2016-12-13] MEDS: BENZTROPINE MESYLATE 1 MG TAB PO SCH (10:00)
[2016-12-13] MEDS: busPIRone HCL 10 MG TAB PO SCH ×3 (10:01→18:17)
[2016-12-13] MEDS: OLANZapine 10 MG TAB PO SCH ×3 (10:01→20:41)
[2016-12-13] MEDS: SODIUM CHLORIDE 1 GRAM TAB PO SCH ×2 (10:01→20:41)
[2016-12-13] MEDS: ZIPRASIDONE HCL 40 MG CAP PO SCH (10:01)
--- NOTE | 2016-12-13 12:05 | HHI.HP ---
Provisional Diagnosis Admission Date Dec 12, 2016 at 14:40 [place] 1. Adjustment disorder with mixed disturbance of emotions and conduct [place] II. 1. Intellectual disability [place] V. GAF is 30 presently Certification of Person's Competence To Provide Express and Informed Consent I have personally examined Yue Rodriguez , a person being served at [facility] on, Dec 13, 2016 12:05. Express and informed consent means consent voluntarily given in writing, by a competent person, after sufficient explanation and disclosure of the subject matter involved to enable the person to make a knowing and willful decision without any element of force, fraud, deceit, duress, or other form of constraint or coercion. This person is 18 years of age or older, is not now known to be incompetent to consent to treatment with a guardian advocate, and does not have a health care surrogate or proxy currently making medical treatment decisions. I have found this person to be one of the following: [] Competent to provide express and informed consent, as defined above, for voluntary admission to this facility and is competent to provide express and informed consent for treatment. He/she has the consistent capacity to make well reasoned, willful, and knowing decisions concerning his or her medical or mental health treatment. The person fully and consistently understands the purpose of the admission for examination/placement and is fully capable of personally exercising all rights assured [place] [x] Incompetent to provide express and informed consent to voluntary admission, and this is incompetent to provide express and informed consent to treatment. The person must be transferred to involuntary status and a petition for a guardian advocate filed with the Circuit Court. [] Refusing to provide express and informed consent to voluntary admission but is competent to provide express and informed consent for treatment. The person must be discharged or transferred to involuntary status. Form shall be completed within 24 hours of a person's arrival at the receiving facility and filed in the clinical record of each person: 1. Admitted on a voluntary basis 2. Permitted to provide express and informed consent to his/her own treatment 3. Allowed to transfer from involuntary to voluntary status 4. Prior to permitting a person to consent to his or her own treatment after having been previously found incompetent to consent to treatment. History of Present Illness Capacity: Lacks Capacity HPI Ms. Rodriguez is a 56-year-old female with a history of intellectual disability and associated adjustment issues who returns from the medical floor, to which she was admitted with severe hyponatremia. Patient was followed on the medical floor by Dr. Stafford. EMR reviewed. Patient seen and examined with counselor and nurse. Chart reviewed. Case discussed with RN, who reports patient has been upset and belligerent because her family did not visit her on the medical unit, particularly for her birthday yesterday. She is noted to have a more steady gait per RN. On my examination today, patient presents as irritable, dysphoric and perseverative. She describes her mood as "angry! I don't trust my niece farther than I can throw her." She is angry that her niece wants her places. She tells me, "I don't care about nothing! I just want to kill myself because I'm angry!" No reported suicide plan. No reported urge to hurt self on the unit." Denies AVH. No delusions. Insight into disruptiveness of acting out behaviors is poor. "You just don't understand what I'm going through!" No side effects from medications. No physical complaints. Patient remains a poor historian for past psych hx, family hx, chem dep hx, and social hx. Review of Systems ROS Limitations: Poor Historian Except as stated in HPI: all other systems reviewed are Neg Past Psych History Psychological trauma history No reported trauma history to me. Violence risk - others (6 mos) Chronic risk related to impulsivity from intellectual disability. Violence risk - self (6 mos) Chronic risk related to impulsivity from intellectual disability. Has engaged in active self-injurious behavior while on unit in past. Substance Abuse History Drugs/Alcohol past 12 months See above Past Family Social History Coded Allergies: Penicillin (Verified Allergy, Severe, 10/16/16) Sulfa (Verified Allergy, Severe, 10/16/16) Bactrim (Unverified Allergy, Mild, 10/16/16) Lactose (Unverified Allergy, Mild, 10/16/16) *MDRO Multi-Drug Resistant Organism (Verified Adverse Reaction, Unknown, ) MRSA (arm)-10/16/16 Past Medical History See EMR Active Scripts Ziprasidone (Geodon)40 Mg Cap40 Mg PO BIDPC 30 Days Ref 0 Prov:Rose Kingston MD 12/12/16 Sodium Chloride 1 Gm Tab1 Gm PO BID 5 Days Ref 0 Prov:Rose Kingston MD 12/12/16 Olanzapine 10 Mg Tab10 Mg PO Q12HR 30 Days Ref 0 Prov:Rose Kingston MD 12/12/16 Divalproex ER (Depakote ER)500 Mg [id number] Mg PO BID 30 Days Ref 0 Prov:Rose Kingston MD 12/12/16 [Benztropine Mesylate] (Cogentin)1 MG TAB No Conflict Check1 Mg PO Q12HR 30 Days Ref 0 Prov:Rose Kingston MD 12/12/16 Reported Medications Buspirone 10 Mg Tab10 Mg PO TID Ref 0 10/08/16 Discontinued Reported Medications Oxcarbazepine (Trileptal)600 Mg Tab1,200 Mg PO BID #60 TAB Ref 0 10/08/16 Discontinued Scripts Clindamycin 300 Mg [id number] Mg PO TID #15 CAP Ref 0 Prov:Michel Vincent MD 10/22/16 Current Medications Medications (Trade) Dose Ordered Sig/Eloise Route Start Time Stop Time Status Last Admin (Buspar) 10 mg TID PO 12/13/16 09:00 12/13/16 10:01 (Depakote Er) 500 mg BID PO 12/12/16 21:00 12/13/16 10:00 (ZyPREXA) 10 mg Q12HR PO 12/12/16 21:00 12/13/16 10:01 (Sodium Chloride) 1 gm BID PO 12/12/16 21:00 12/13/16 10:01 (Geodon) 40 mg BIDPC PO 12/12/16 19:15 12/13/16 10:01 (Cogentin) 1 mg Q12H PO 12/12/16 21:00 12/13/16 10:00 Family History See above Social History See above Patient's Strengths (min. 2) In a monitored setting. Verbally fluent. Physical Exam Physical exam completed by hospitalist prior to transfer from the medical floor. On my examination today, patient appears to be in no acute physical distress. No motor abnormalities noted. No signs of new trauma. Laboratories and vital signs reviewed: Vital Signs Vital Signs Date Time Temp Pulse Resp B/P Pulse Ox O2 Delivery O2 Flow Rate FiO2 12/13/16 05:45 98.4 83 18 96/51 97 Lab Results Item Value Date Time White Blood Count 4.0 TH/MM3 12/11/16 1140 Hemoglobin 10.4 GM/DL L 12/11/16 1140 Platelet Count 155 TH/MM3 12/11/16 1140 Sodium Level 135 MEQ/L L 12/12/16 0847 Potassium Level 4.2 MEQ/L 12/12/16 0847 Chloride Level 101 MEQ/L 12/12/16 0847 Carbon Dioxide Level 28.5 MEQ/L 12/12/16 0847 Blood Urea Nitrogen 11 MG/DL 12/12/16 0847 Creatinine 0.55 MG/DL 12/12/16 0847 Random Glucose 143 MG/DL H 12/12/16 0847 Hemoglobin A1c 5.8 % 12/04/16 0726 Aspartate Amino Transf (AST/SGOT) 20 U/L 12/02/16 1840 Alanine Aminotransferase (ALT/SGPT) 28 U/L 12/02/16 1840 Alkaline Phosphatase 107 U/L 12/02/16 1840 EKG reviewed. QTc wnl. Mental Status Examination No motor abnormalities noted. Speech: Pressured, Stuttering, Other (repetitive) Orientation: Person, Place Memory: Unremarkable (fair) Thought Process: Other (illogical, perseverative) Thought Content: Other (no delusional material) Fund of Knowledge Impaired Hallucination Type: None Attention and Concentration: Other (poor) Suicidal Ideation: Yes Previous Suicide Attempts: No Homicidal Ideation: No Previous Homicide Attempts: No Insight: Poor Judgment: Poor Affect: Other (restricted, dysphoric) Mood: Angry Assessment & Plan Problem List: (1) Adjustment disorder ICD Code: F43.20 (2) Intellectual disability ICD Code: F79 Assessment & Plan This is a 56-year-old female with psychiatric history as detailed above transferred back from the medical floor following an episode of severe hyponatremia. She remains emotionally dysregulated and continues to have issues with impulse control and threats of self-injury. Family is reportedly unable to care for her any longer in the home. Patient requires psychiatric admission for safety and stabilization. --Admit inpatient. --Patient's case placed in continuance x [address] [employer] Spl[employer] Yesenia on 12/12/16; savanna Garsia is HCS. --Check BMP in am to follow up hyponatremia. I have added Trileptal as Adverse Reaction. --Continue 1:1 sitter for fall risk. I will consult PT, and if gait is indeed improved, could consider discontinuing 1:1. Fall precautions. --Consult to hospitalist to follow from medical floor. --Titrate Zyprexa to 10mg TID. Discontinue Geodon. --Continue Depakote as ordered. Check VPA and ammonia level after weekend. --Haldol as needed for agitation, Ativan as needed for anxiety, Cogentin as needed for EPS, Benadryl as needed for sleep. --Violent/assaultive precautions. Self injury precautions. --Vitals every shift --Counselor to see --Disposition planning --Estimated length of stay: 1-2 weeks as we first need to obtain behavioral control and then arrange for placement. Discharge Planning Placement Request HC Surrog/Guard Advoc?: Yes Problem Qualifiers (1) Adjustment disorder: Qualified Code: F43.25 - Adjustment disorder with mixed disturbance of emotions and conduct Igor Lawrence MD Dec 13, 2016 12:05
[2016-12-13] MEDS ORDERED: MAGNESIUM HYDROXIDE SUSP 30 ML CUP PO PRN (12:30)
[2016-12-13] MEDS ORDERED: BENZTROPINE MESYLATE 2 MG/2 ML VIAL IM PRN (12:30)
[2016-12-13] MEDS ORDERED: BENZTROPINE MESYLATE 1 MG TAB PO PRN (12:30)
[2016-12-13] MEDS ORDERED: diphenhydrAMINE HCL 50 MG CAP PO PRN (12:30)
--- NOTE | 2016-12-13 16:13 | PD.CONS ---
HPI Service [facility] Consult Requested By Dr. Rocha Reason for Consult Medical management Primary Care Physician No Primary Care Physician Diagnoses: History of Present Illness The patient is a 56-year-old female with a past medical history of schizoaffective disorder and hyponatremia who was admitted to psychiatry following hospitalization for hyponatremia. The patient says she has been falling a lot at home for years. She says she gets lightheaded and dizzy and all of a sudden she blacks out. She also mentions recently she went to a cancer doctor and had a scan done. She is not sure what kind of cancer she has or if they're just working her up. She says she lives with her niece and that her niece is very concerned about her. Her big concern at this time is her chronic falls. She does not ambulate with a cane or a walker. She does not seem to think that a medication side effect. She mentions at home she has had severe chest pain. She said it occurred several times. She is not complaining of chest pain at this time. She denies shortness of breath. She says she's been eating. She denies abdominal pain. Review of Systems ROS Limitations: Psychotic, Poor Historian Except as stated in HPI: all other systems reviewed are Neg Past Family Social History Allergies: Coded Allergies: Penicillin (Verified Allergy, Severe, 10/16/16) Sulfa (Verified Allergy, Severe, 10/16/16) Bactrim (Unverified Allergy, Mild, 10/16/16) Lactose (Unverified Allergy, Mild, 10/16/16) Trileptal (Verified Adverse Reaction, Severe, 12/13/16) SEVERE HYPONATREMIA *MDRO Multi-Drug Resistant Organism (Verified Adverse Reaction, Unknown, ) MRSA (arm)-10/16/16 Past Medical History Schizoaffective disorder bipolar type Intellectual disability Depression Anxiety Diabetes, diet-controlled Past Surgical History Gallstone removal Hysterectomy Active Ordered Medications Current Medications Medications (Trade) Dose Ordered Sig/Eloise Route Start Time Stop Time Status Last Admin (Buspar) 10 mg TID PO 12/13/16 09:00 12/13/16 13:19 (Depakote Er) 500 mg BID PO 12/12/16 21:00 12/13/16 10:00 (Sodium Chloride) 1 gm BID PO 12/12/16 21:00 12/13/16 10:01 (Ativan) 1 mg Q6H PRN PO 12/13/16 12:30 (Ativan Inj) 1 mg Q6H PRN IM 12/13/16 12:30 (Tylenol) 650 mg Q4H PRN PO 12/13/16 12:30 (Milk Of Magnesia Liq) 30 ml DAILY PRN PO 12/13/16 12:30 (Mag-Al Plus Susp Liq) 30 ml Q6H PRN PO 12/13/16 12:30 (Cogentin) 1 mg Q12H PRN PO 12/13/16 12:30 (Cogentin Inj) 1 mg Q12H PRN IM 12/13/16 12:30 (Colace) 100 mg BID PO 12/13/16 21:00 (Dulcolax Ec) 10 mg DAILY PRN PO 12/13/16 12:30 (ZyPREXA) 10 mg DAILY@09,15,21 PO 12/13/16 15:00 12/13/16 15:33 (Haldol) 5 mg Q6H PRN PO 12/13/16 14:00 (Haldol Inj) 5 mg Q6H PRN IM 12/13/16 14:00 (Desyrel) 50 mg HS PRN PO 12/13/16 21:00 Social History The pt does not smoke or drink Physical Exam Vital Signs Vital Signs Date Time Temp Pulse Resp B/P Pulse Ox O2 Delivery O2 Flow Rate FiO2 12/13/16 05:45 98.4 83 18 96/51 97 Physical Exam GENERAL: This is a well-nourished, well-developed patient, in no apparent distress. HEENT: NC, AT. CARDIOVASCULAR: Regular rate and regular rhythm without murmurs, gallops, or rubs. RESPIRATORY: Clear to auscultation. Breath sounds equal bilaterally. No wheezes , rales, or rhonchi. GASTROINTESTINAL: Abdomen soft, non-tender, nondistended. Normoactive bowel sounds. MUSCULOSKELETAL: Extremities without clubbing, cyanosis. TR edema. NEURO: Awake and alert. Cognitive deficits. PSYCH: Calm. Assessment and Plan Assessment and Plan Hyponatremia Tegretol was discontinued. Much improved. - continue sodium tablets. - Follow sodium levels. - encourage PO intake. Schizoaffective disorder/ mental retardation Has had medication adjustments s/t hyponatremia. - Being treated by psychiatry. Falls The pt reports falling quite a bit. Likely s/t hyponatremia. May be med side effect in addition. - check orthostatics. - monitor sodium level. - physical therapy. HTN Blood pressure fluctuates. - check orthostatics. - monitor for now. DVT prophylaxis: Ambulation Discussed Condition With Pt, nurse Atul Hale DO Dec 13, 2016 16:13
[2016-12-13 17:46] VITALS: BP 103/66; PULSE 81; RESP 18; TEMP 98.3; O2SAT 100
[2016-12-13] MEDS: HALOPERIDOL LACTATE 5 MG/ML AMP IM PRN (18:48)
[2016-12-13] MEDS: DOCUSATE SODIUM 100 MG CAP PO SCH (20:41)
[2016-12-14] MEDS: traZODone HCL 50 MG TAB PO PRN ×2 (01:39→20:34)
[2016-12-14 05:36] VITALS: BP 101/53; PULSE 86; RESP 18; TEMP 98.5; O2SAT 97
[2016-12-14 05:39] VITALS: BP 135/65; PULSE 85
[2016-12-14 05:40] VITALS: BP 124/55; PULSE 90
[2016-12-14] MEDS: SODIUM CHLORIDE 1 GRAM TAB PO SCH ×2 (08:55→20:34)
[2016-12-14] MEDS: busPIRone HCL 10 MG TAB PO SCH ×3 (08:55→18:00)
[2016-12-14] MEDS: DIVALPROEX SODIUM E.R. 500 MG TAB PO SCH ×2 (08:55→20:34)
[2016-12-14] MEDS: DOCUSATE SODIUM 100 MG CAP PO SCH ×2 (08:55→20:34)
[2016-12-14] MEDS: OLANZapine 10 MG TAB PO SCH ×3 (08:55→20:34)
[2016-12-14 09:33] LABS: HEMATOCRIT 33.6 % (35.0-46.0); MEAN CELL VOLUME 87.3 FL (80.0-100.0); MEAN CORPUSCULAR HGB CONC 32.1 % (32.0-36.0); PLATELET COUNT 220 TH/MM3 (150-450); RED BLOOD COUNT 3.85 MIL/MM3 (4.00-5.30); RED CELL DISTRIBUTION WIDTH 14.3 % (11.6-17.2); REVIEW FLAG FINAL; WHITE BLOOD COUNT 3.7 TH/MM3 (4.0-11.0)
[2016-12-14 09:52] LABS: BICARBONATE 31.1 MEQ/L (21.0-32.0); MAGNESIUM 1.8 MG/DL (1.5-2.5); POTASSIUM 4.9 MEQ/L (3.5-5.1)
[2016-12-14] MEDS: LORazepam 1 MG TAB PO PRN (12:26)
--- NOTE | 2016-12-14 17:42 | HHI.PYPN ---
Subjective Remarks Patient was seen and case discussed with nursing. Patient is bright and cheerful during the interview. Cognitive deficits are evident. His been behaving well throughout the day per nursing. Eating and sleeping well. No aggressive behavior noted. Compliant with medications. When asked her if she was depressed she became perseverative on the simon depressed and in repeated that she is not depressed multiple times. Denies auditory visual hallucinations. Objective Alert: Yes [place]: Person, Place, Date Mood: Anxious Affect: Appropriate Memory Intact: Immediate (not tested) Hallucinations: Other Delusions: No Delusion Type: Other Suicidal: Ideation (denies) Homicidal: Ideation (denies) Insight/Judgment Poor Labs Test 12/14/16 08:53 White Blood Count 3.7 TH/MM3 Red Blood Count 3.85 MIL/MM3 Hemoglobin 10.8 GM/DL Hematocrit 33.6 % Mean Corpuscular Volume 87.3 FL Mean Corpuscular Hemoglobin 28.0 PG Mean Corpuscular Hemoglobin 32.1 % Concent Red Cell Distribution Width 14.3 % Platelet Count 220 TH/MM3 Mean Platelet Volume 6.9 FL Sodium Level 136 MEQ/L Potassium Level 4.9 MEQ/L Chloride Level 99 MEQ/L Carbon Dioxide Level 31.1 MEQ/L Anion Gap 6 MEQ/L Blood Urea Nitrogen 8 MG/DL Creatinine 0.62 MG/DL Estimat Glomerular Filtration 99 ML/MIN Rate Random Glucose 119 MG/DL Calcium Level 8.7 MG/DL Magnesium Level 1.8 MG/DL Vitals/IOs Vital Signs Date Time Temp Pulse Resp B/P Pulse Ox O2 Delivery O2 Flow Rate FiO2 12/14/16 05:40 90 124/55 12/14/16 05:36 98.5 18 97 Assessment & Plan Problem List: (1) Adjustment disorder ICD Code: F43.20 (2) Intellectual disability ICD Code: F79 Assessment & Plan Continue current treatment plan Justification for Cont. Inpt. Patient will decompensate in a less restrictive setting Request HC Surrog/Guard Advoc?: Yes Problem Qualifiers (1) Adjustment disorder: Qualified Code: F43.25 - Adjustment disorder with mixed disturbance of emotions and conduct Josesito Salgado DO Dec 14, 2016 17:42
[2016-12-14 17:49] VITALS: BP 110/58; PULSE 85; RESP 18; TEMP 98.1; O2SAT 98
[2016-12-15 05:31] VITALS: BP 131/63; PULSE 80; RESP 16; TEMP 98.5; O2SAT 98
[2016-12-15] MEDS: HALOPERIDOL LACTATE 5 MG/ML AMP IM PRN ×2 (07:55→19:58)
[2016-12-15] MEDS: LORazepam 2 MG/ML VIAL IM PRN ×2 (07:55→19:57)
[2016-12-15] MEDS: DOCUSATE SODIUM 100 MG CAP PO SCH ×2 (08:17→20:16)
[2016-12-15] MEDS: SODIUM CHLORIDE 1 GRAM TAB PO SCH ×2 (09:00→20:16)
[2016-12-15] MEDS: OLANZapine 10 MG TAB PO SCH ×3 (09:00→20:16)
[2016-12-15] MEDS: busPIRone HCL 10 MG TAB PO SCH ×3 (09:00→18:00)
[2016-12-15] MEDS: DIVALPROEX SODIUM E.R. 500 MG TAB PO SCH ×2 (09:00→20:16)
--- NOTE | 2016-12-15 15:02 | HHI.PYPN ---
Subjective Remarks Patient was seen and case discussed with nursing. This morning patient is irritable and yelling this morning per nursing and required an ETO. She is sedated in the interview. Compliant with her medications and tolerating them well. Doing well per one-to-one Objective Alert: Yes [place]: Person, Place, Date Mood: Anxious Affect: Labile Memory Intact: Immediate (not tested) Hallucinations: Other Delusions: No Delusion Type: Other Suicidal: Ideation (denies) Homicidal: Ideation (denies) Insight/Judgment Poor Vitals/IOs Vital Signs Date Time Temp Pulse Resp B/P Pulse Ox O2 Delivery O2 Flow Rate FiO2 12/15/16 05:31 98.5 80 16 131/63 98 Intake and Output 12/14/16 12/14/16 12/15/16 08:00 16:00 00:00 Intake Total 240 ml Balance 240 ml Assessment & Plan Problem List: (1) Adjustment disorder ICD Code: F43.20 (2) Intellectual disability ICD Code: F79 Assessment & Plan Continue current treatment plan Justification for Cont. Inpt. Patient will decompensate in a less restrictive setting Request HC Surrog/Guard Advoc?: Yes Problem Qualifiers (1) Adjustment disorder: Qualified Code: F43.25 - Adjustment disorder with mixed disturbance of emotions and conduct Josesito Salgado DO Dec 15, 2016 15:02
[2016-12-15] MEDS: LORazepam 1 MG TAB PO PRN ×2 (19:51→19:56)
[2016-12-15] MEDS: HALOPERIDOL 5 MG TAB PO PRN ×2 (19:51→19:56)
[2016-12-15] MEDS: traZODone HCL 50 MG TAB PO PRN (20:16)
[2016-12-16 05:50] VITALS: BP 118/63; PULSE 80; RESP 18; TEMP 98.8; O2SAT 97
[2016-12-16] MEDS: OLANZapine 10 MG TAB PO SCH ×3 (09:02→21:01)
[2016-12-16] MEDS: DOCUSATE SODIUM 100 MG CAP PO SCH ×2 (09:02→21:00)
[2016-12-16] MEDS: SODIUM CHLORIDE 1 GRAM TAB PO SCH ×2 (09:02→21:01)
[2016-12-16] MEDS: LORazepam 1 MG TAB PO PRN (09:02)
[2016-12-16] MEDS: busPIRone HCL 10 MG TAB PO SCH ×3 (09:03→17:26)
[2016-12-16] MEDS: DIVALPROEX SODIUM E.R. 500 MG TAB PO SCH ×2 (09:03→21:01)
--- NOTE | 2016-12-16 12:34 | HHI.PYPN ---
Subjective Remarks Patient reports being tired. She is calm at the moment but obviously slept late this morning. She remains withdrawn and uninterested in caring for herself. She also remains disappointed and angry with her family. She is being compliant with medications and this physician spoke to the patient's nurse regarding her current progress. Review of Systems Except as stated in HPI: all other systems reviewed are Neg Objective Alert: Yes [place]: Person, Place, Date Mood: Anxious Affect: Labile Memory Intact: Immediate (not tested) Hallucinations: Other Delusions: No Delusion Type: Other Suicidal: Ideation (denies) Homicidal: Ideation (denies) Insight/Judgment Impaired Vitals/IOs Vital Signs Date Time Temp Pulse Resp B/P Pulse Ox O2 Delivery O2 Flow Rate FiO2 12/16/16 05:50 98.8 80 18 118/63 97 Intake and Output 12/15/16 12/15/16 12/16/16 08:00 16:00 00:00 Intake Total 220 ml 990 ml Balance 220 ml 990 ml Assessment & Plan Problem List: (1) Adjustment disorder ICD Code: F43.20 (2) Intellectual disability ICD Code: F79 Assessment & Plan Estimated LOS: days patient continues to take Zyprexa 10 mg 3 times a day. This is having a partial effect but she is not fully responding. She remains paranoid regarding the persecution of her family. She is also easily agitated. We'll continue to monitor for response to Zyprexa. Justification for Cont. Inpt. Likely to decompensate at lower level of care. Request HC Surrog/Guard Advoc?: Yes Problem Qualifiers (1) Adjustment disorder: Qualified Code: F43.25 - Adjustment disorder with mixed disturbance of emotions and conduct Eric Rosario MD Dec 16, 2016 12:34
[2016-12-16] MEDS: BISACODYL EC 5 MG TABEC PO PRN (12:53)
--- NOTE | 2016-12-16 15:52 | HHI.PR ---
Subjective Remarks Follow-up visit schizoaffective disorder, mental dictation, falls, HTN, hyponatremia. Patient seen and examined today. Appears more sleep than usual. As per staff, patient was not behaving last night and she got medications to calm her down. Patient able to respond and follows commands but closes her eyes. She repeats herself and saying "I have a fall." Denies pain and discomfort. Denies SOB/ dyspnea. Denies chest pain, palpitations, headaches, dizziness. Denies fevers, chills, n/v/d. Objective Vitals Vital Signs Date Time Temp Pulse Resp B/P Pulse Ox O2 Delivery O2 Flow Rate FiO2 12/16/16 05:50 98.8 80 18 118/63 97 12/15/16 18:05 I/O 12/15/16 12/15/16 12/15/16 12/16/16 12/16/16 12/16/16 07:00 15:00 23:00 07:00 15:00 23:00 Intake Total 220 ml 440 ml 550 ml Balance 220 ml 440 ml 550 ml Intake Oral 220 ml 440 ml 550 ml # Voids 2 Result Diagram: 12/14/16 0853 12/14/16 0853 Objective Remarks GENERAL: This is a well-nourished, well-developed patient, in no apparent distress. SKIN: Warm and dry. Left periorbital area ecchymosis. HEENT: Normocephalic. Pupils equal round and reactive. Nose without bleeding. Airway patent. NECK: Trachea midline. No JVD. Supple. CARDIOVASCULAR: Regular rate and rhythm without murmurs, gallops, or rubs. RESPIRATORY: Clear to auscultation. Breath sounds equal bilaterally. No wheezes , rales, or rhonchi. GASTROINTESTINAL: Abdomen soft, non-tender, nondistended. Bowel Sounds normoactive x4. MUSCULOSKELETAL: Extremities without clubbing, cyanosis, or edema. NEUROLOGICAL: Awake and alert. Oriented to place, person. Moves all extremities. Normal speech. A/P Problem List: (1) Intellectual disability ICD Code: F79 Status: Acute (2) Hyponatremia ICD Code: E87.1 Status: Acute (3) Altered mental status ICD Code: R41.82 Status: Acute (4) Adjustment disorder ICD Code: F43.20 Status: Acute Assessment and Plan Patient is a 56-year-old female with past medical history schizoaffective disorder, mental retardation, hyponatremia who came into the hospital status post fall from home. She is now admitted to inpatient psychiatry unit for further evaluation. Consulted for medical management. Hyponatremia Tegretol was discontinued. Much improved. - continue sodium tablets. - Follow sodium levels. - encourage PO intake. - Sodium 134 --.135--> 136 Schizoaffective disorder/ mental retardation Has had medication adjustments s/t hyponatremia. - Being treated by psychiatry. Falls The pt reports falling quite a bit. Likely s/t hyponatremia. May be med side effect in addition. - physical therapy - Risk for falls. Monitor - Patient has been getting Zyprexa, Haldol, Ativan which make contribution to her being sleepy and unsteady. HTN Blood pressure fluctuates. - BP within normal - Continue to monitor trend DVT prophylaxis: Ambulation Full code Discussed with patient, nursing Stable from Hospitalist standpoint. We will sign off. Reconsult as needed. Problem Qualifiers (1) Adjustment disorder: Qualified Code: F43.25 - Adjustment disorder with mixed disturbance of emotions and conduct Ramón Quintanilla Dec 16, 2016 15:52
[2016-12-16] MEDS: HALOPERIDOL LACTATE 5 MG/ML AMP IM PRN (17:26)
[2016-12-16] MEDS: LORazepam 2 MG/ML VIAL IM PRN (17:26)
[2016-12-16 18:21] VITALS: BP_SYST 127; BP_SYST 132; BP_DIAS 67; BP_DIAS 82; PULSE 78; PULSE 94; RESP 16; RESP 18; TEMP 97.5; TEMP 98.6; O2SAT 100; O2SAT 98
[2016-12-16] MEDS: traZODone HCL 50 MG TAB PO PRN (21:01)
[2016-12-16 22:16] LABS: HEMATOCRIT 30.9 % (35.0-46.0); MEAN CELL VOLUME 87.8 FL (80.0-100.0); MEAN CORPUSCULAR HEMOGLOBIN 28.6 PG (27.0-34.0); MEAN CORPUSCULAR HGB CONC 32.6 % (32.0-36.0); PLATELET COUNT 192 TH/MM3 (150-450); RED BLOOD COUNT 3.52 MIL/MM3 (4.00-5.30); RED CELL DISTRIBUTION WIDTH 14.1 % (11.6-17.2); REVIEW FLAG FINAL
[2016-12-16 22:59] LABS: BICARBONATE 33.1 MEQ/L (21.0-32.0); POTASSIUM 3.9 MEQ/L (3.5-5.1)
[2016-12-17 06:01] VITALS: BP 103/54; PULSE 78; RESP 18; TEMP 98.8; O2SAT 97
[2016-12-17] MEDS: SODIUM CHLORIDE 1 GRAM TAB PO SCH ×4 (09:00→20:29)
[2016-12-17] MEDS: DOCUSATE SODIUM 100 MG CAP PO SCH ×2 (09:08→20:25)
[2016-12-17] MEDS: OLANZapine 10 MG TAB PO SCH ×3 (09:09→20:25)
[2016-12-17] MEDS: busPIRone HCL 10 MG TAB PO SCH ×3 (09:09→18:07)
[2016-12-17] MEDS: DIVALPROEX SODIUM E.R. 500 MG TAB PO SCH ×2 (09:09→20:25)
[2016-12-17] MEDS: HALOPERIDOL LACTATE 5 MG/ML AMP IM PRN (10:58)
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
[2016-12-17 18:51] VITALS: BP_SYST 111; BP_SYST 117; BP_SYST 119; BP_DIAS 58; BP_DIAS 59; BP_DIAS 70; PULSE 100; PULSE 96; PULSE 97; RESP 18; TEMP 97.9; O2SAT 98
[2016-12-17] MEDS: LORazepam 1 MG TAB PO PRN (20:25)
[2016-12-17] MEDS: traZODone HCL 50 MG TAB PO PRN (20:25)
[2016-12-18 05:44] VITALS: BP 131/63; PULSE 97; RESP 17; TEMP 97.1; O2SAT 97
[2016-12-18] MEDS: OLANZapine 10 MG TAB PO SCH ×4 (09:00→21:13)
[2016-12-18] MEDS: DIVALPROEX SODIUM E.R. 500 MG TAB PO SCH ×3 (09:00→21:14)
[2016-12-18] MEDS: busPIRone HCL 10 MG TAB PO SCH ×4 (09:00→17:32)
[2016-12-18] MEDS: DOCUSATE SODIUM 100 MG CAP PO SCH ×3 (09:00→21:13)
[2016-12-18] MEDS: SODIUM CHLORIDE 1 GRAM TAB PO SCH ×2 (09:00→21:13)
--- NOTE | 2016-12-18 13:20 | HHI.PYPN ---
Subjective Remarks Reviewed chart and discussed case with nurse. Patient remains paranoid. Minimal progress on antipsychotic medication. Review of Systems Except as stated in HPI: all other systems reviewed are Neg Objective Alert: Yes [place]: Person, Place, Date Mood: Anxious Affect: Labile Memory Intact: Immediate (not tested) Hallucinations: Other Delusions: No Delusion Type: Other Suicidal: Ideation (denies) Homicidal: Ideation (denies) Insight/Judgment Impaired Vitals/IOs Vital Signs Date Time Temp Pulse Resp B/P Pulse Ox O2 Delivery O2 Flow Rate FiO2 12/18/16 05:44 97.1 97 17 131/63 97 Intake and Output 12/17/16 12/17/16 12/18/16 08:00 16:00 00:00 Intake Total 550 ml 720 ml Balance 550 ml 720 ml Assessment & Plan Problem List: (1) Adjustment disorder ICD Code: F43.20 (2) Intellectual disability ICD Code: F79 Assessment & Plan Estimated LOS: days resistant to medication treatment. Justification for Cont. Inpt. Likely to decompensate at lower level of care. Request HC Surrog/Guard Advoc?: Yes Problem Qualifiers (1) Adjustment disorder: Qualified Code: F43.25 - Adjustment disorder with mixed disturbance of emotions and conduct Eric Rosario MD Dec 18, 2016 13:20
[2016-12-18] MEDS: HALOPERIDOL LACTATE 5 MG/ML AMP IM PRN (13:51)
[2016-12-18] MEDS: LORazepam 1 MG TAB PO PRN (15:58)
[2016-12-18 18:31] VITALS: BP 140/60; PULSE 101; RESP 16; TEMP 98.2; O2SAT 97
[2016-12-18] MEDS: traZODone HCL 50 MG TAB PO PRN (21:14)
[2016-12-19 06:02] VITALS: BP 105/53; PULSE 83; RESP 18; TEMP 96.4; O2SAT 98
[2016-12-19] MEDS: DIVALPROEX SODIUM E.R. 500 MG TAB PO SCH ×2 (08:05→21:03)
[2016-12-19] MEDS: DOCUSATE SODIUM 100 MG CAP PO SCH ×2 (08:05→21:03)
[2016-12-19] MEDS: SODIUM CHLORIDE 1 GRAM TAB PO SCH ×2 (08:05→21:00)
[2016-12-19] MEDS: busPIRone HCL 10 MG TAB PO SCH ×3 (08:05→18:00)
[2016-12-19] MEDS: OLANZapine 10 MG TAB PO SCH ×3 (08:05→21:04)
[2016-12-19] MEDS: ACETAMINOPHEN 325 MG TAB PO PRN ×2 (08:06→22:27)
--- NOTE | 2016-12-19 11:50 | HHI.PYPN ---
Subjective Remarks Patient seen and examined with counselor and nurse. Chart reviewed. Case discussed with nursing staff who reports that the patient remains quite childlike. On my examination today, the patient remains on a one-to-one for fall risk. She complains of poor sleep. She denies any urge to self injure but gestures to her one-to-one sitter and says "I can beat her up." She has been refusing some meals, although she did take lunch today, and when I ask her about this she says "Sun's not here, Yue's not eating." Observed laughing and smiling later with staff in a childlike manner. Denies side effects from medications. No physical complaints. Review of Systems ROS Limitations: Poor Historian Except as stated in HPI: all other systems reviewed are Neg Objective Alert: Yes [place]: Person, Place, Date Mood: Calm Affect: Labile (childlike) Memory Intact: Comment (Not formally assessed) Hallucinations: Other (No AVH) Delusions: No Delusion Type: Other (No delusions) Suicidal: Ideation (No SI but threatening not to eat.) Homicidal: Ideation (No HI) Insight/Judgment Poor Remarks No abnormal motor movements noted. Grooming and hygiene fair. Labs Labs reviewed. Vitals/IOs Vital Signs Date Time Temp Pulse Resp B/P Pulse Ox O2 Delivery O2 Flow Rate FiO2 12/19/16 06:02 96.4 83 18 105/53 98 Assessment & Plan Problem List: (1) Adjustment disorder ICD Code: F43.20 (2) Intellectual disability ICD Code: F79 Assessment & Plan Titrate and schedule trazodone 100mg qHS for sleep. Continue Zyprexa and other psychotropics as ordered. Check CBC in morning to follow up anemia. Check BMP to follow up hyponatremia. Continue one-to-one for fall risk and also for behavioral redirection. Continue to monitor on the high acuity unit. Continue other medications and care as ordered. Justification for Cont. Inpt. Impairment in self-care. Impairment in social function. Medication changes in process. High risk for decompensation in a less restrictive environment. Discharge Planning Plan is for placement once patient's behavior remains consistently stabilized enough to initiate referrals. Request HC Surrog/Guard Advoc?: Yes Problem Qualifiers (1) Adjustment disorder: Qualified Code: F43.25 - Adjustment disorder with mixed disturbance of emotions and conduct Igor Lawrence MD Dec 19, 2016 11:50
[2016-12-19 17:03] VITALS: BP 128/60; PULSE 102; RESP 17; TEMP 97.2; O2SAT 99
[2016-12-19] MEDS: ALUMINUM/MAGNESIUM/SIMETH 30 ML CUP PO PRN (18:39)
[2016-12-19] MEDS ORDERED: traZODone HCL 100 MG TAB PO SCH (21:00)
[2016-12-19] MEDS: LORazepam 1 MG TAB PO PRN (23:07)
[2016-12-19] MEDS: HALOPERIDOL LACTATE 5 MG/ML AMP IM PRN (23:24)
[2016-12-20 05:13] VITALS: BP 118/60; PULSE 90; RESP 18; TEMP 97.6; O2SAT 98
[2016-12-20] MEDS: DOCUSATE SODIUM 100 MG CAP PO SCH ×2 (08:56→20:14)
[2016-12-20] MEDS: busPIRone HCL 10 MG TAB PO SCH ×3 (08:56→18:13)
[2016-12-20] MEDS: DIVALPROEX SODIUM E.R. 500 MG TAB PO SCH ×2 (08:56→20:14)
[2016-12-20] MEDS: OLANZapine 10 MG TAB PO SCH ×3 (08:56→20:12)
[2016-12-20] MEDS: SODIUM CHLORIDE 1 GRAM TAB PO SCH ×4 (08:56→21:00)
[2016-12-20 09:49] LABS: AUTOMATED NEUTROPHIL # 2.7 TH/MM3 (1.8-7.7); BASOPHIL % 0.6 % (0.0-2.0); EOSINOPHIL # 0.1 TH/MM3 (0-0.4); EOSINOPHIL % 3.2 % (0.0-4.0); HEMATOCRIT 34.8 % (35.0-46.0); LYMPH % 22.2 % (9.0-44.0); LYMPHOCYTE # 0.9 TH/MM3 (1.0-4.8); MEAN CELL VOLUME 87.7 FL (80.0-100.0); MEAN CORPUSCULAR HEMOGLOBIN 28.4 PG (27.0-34.0); MEAN CORPUSCULAR HGB CONC 32.3 % (32.0-36.0); MONO % 7.2 % (0.0-8.0); NEUT % 66.8 % (16.0-70.0); PLATELET COUNT 190 TH/MM3 (150-450); RED BLOOD COUNT 3.97 MIL/MM3 (4.00-5.30); RED CELL DISTRIBUTION WIDTH 14.3 % (11.6-17.2); WHITE BLOOD COUNT 4.1 TH/MM3 (4.0-11.0)
[2016-12-20 09:52] LABS: HEMO FLAGS AUTO DIFF
[2016-12-20 10:07] LABS: BICARBONATE 31.2 MEQ/L (21.0-32.0); POTASSIUM 4.3 MEQ/L (3.5-5.1)
[2016-12-20 10:37] LABS: BANDS 9 % (0-6); BASOPHILS 2 % (0-2); MYELOCYTES 1 % (0-0); NEUTROPHIL # MANUAL DIFF 3.4 TH/MM3 (1.8-7.7); POLYS (SEG NEUTROPHILS) 73 % (16-70); SCAN/DIFF FINAL DIFF MANUAL; WBC DIFF SAMPLE 100
[2016-12-20] MEDS: HALOPERIDOL 5 MG TAB PO PRN (12:24)
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
[2016-12-20 17:59] VITALS: BP 110/56; PULSE 91; RESP 17; TEMP 98.6; O2SAT 98
[2016-12-20] MEDS ORDERED: PILL SPLITTER OTHER PRN (18:15)
[2016-12-20] MEDS: DIVALPROEX SODIUM E.R. 250 MG TAB PO SCH (20:13)
[2016-12-20] MEDS: traZODone HCL 100 MG TAB PO SCH (20:14)
[2016-12-20] MEDS: ALUMINUM/MAGNESIUM/SIMETH 30 ML CUP PO PRN (22:00)
[2016-12-21 05:51] VITALS: BP 137/64; PULSE 88; RESP 18; TEMP 99.2; O2SAT 98
[2016-12-21] MEDS: ACETAMINOPHEN 325 MG TAB PO PRN ×3 (06:38→20:24)
[2016-12-21] MEDS: DOCUSATE SODIUM 100 MG CAP PO SCH ×2 (09:05→20:29)
[2016-12-21] MEDS: DIVALPROEX SODIUM E.R. 500 MG TAB PO SCH ×2 (09:06→20:26)
[2016-12-21] MEDS: DIVALPROEX SODIUM E.R. 250 MG TAB PO SCH ×2 (09:06→20:29)
[2016-12-21] MEDS: OLANZapine 10 MG TAB PO SCH ×3 (09:06→20:29)
[2016-12-21] MEDS: busPIRone HCL 10 MG TAB PO SCH ×3 (09:06→18:25)
[2016-12-21] MEDS: SODIUM CHLORIDE 1 GRAM TAB PO SCH ×2 (09:11→20:23)
[2016-12-21] MEDS: ALUMINUM/MAGNESIUM/SIMETH 30 ML CUP PO PRN (13:25)
--- NOTE | 2016-12-21 13:30 | HHI.PYPN ---
Subjective Remarks Pt seen and discussed with staff. She remains labile and suspicious but has not been aggressive today. No SI/HI. Compliant with medications. Objective Alert: Yes [place]: Person, Place, Date Mood: Other (mildly irritable) Affect: Labile Memory Intact: Comment (fair) Hallucinations: Other (None) Delusions: No Delusion Type: Other (No delusions elicited) Suicidal: Ideation (Denies SI) Homicidal: Ideation (Denies HI) Insight/Judgment poor Vitals/IOs Vital Signs Date Time Temp Pulse Resp B/P Pulse Ox O2 Delivery O2 Flow Rate FiO2 12/21/16 05:51 99.2 88 18 137/64 98 Assessment & Plan Problem List: (1) Adjustment disorder ICD Code: F43.20 (2) Intellectual disability ICD Code: F79 Assessment & Plan Continue current tx plan. Estimated LOS: days Justification for Cont. Inpt. impairments in social functioning Request HC Surrog/Guard Advoc?: Yes Problem Qualifiers (1) Adjustment disorder: Qualified Code: F43.25 - Adjustment disorder with mixed disturbance of emotions and conduct Doris Campos MD Dec 21, 2016 13:30
[2016-12-21] MEDS ORDERED: PANTOPRAZOLE SOD 20 MG DELAYED RELEASE TAB PO SCH (13:45)
[2016-12-21] MEDS ORDERED: PROMETHAZINE HCL 25 MG TAB PO ONE (15:30)
[2016-12-21] MEDS ORDERED: PROMETHAZINE HCL 25 MG TAB PO PRN (16:00)
[2016-12-21] MEDS: PANTOPRAZOLE SOD 40 MG DELAYED RELEASE TAB PO SCH (16:01)
--- NOTE | 2016-12-21 16:03 | HHI.PR ---
Subjective Remarks Asked to see patient due to abdominal pain/emesis and left knee pain. Nurse and sitter at bedside. patient stated she has abdominal pain all over, but it seems more in the epigastric area. + emesis the past couple days described as vomiting her food. + normal BM X 1. patient afebrile. also c/o chronic left knee pain. denied any trauma to the area. Objective Vitals Vital Signs Date Time Temp Pulse Resp B/P Pulse Ox O2 Delivery O2 Flow Rate FiO2 12/21/16 05:51 99.2 88 18 137/64 98 12/20/16 17:59 98.6 91 17 110/56 98 Result Diagram: 12/20/1683512/20/16835 Objective Remarks GENERAL: in NAD CARDIOVASCULAR: Regular rate and rhythm without murmurs, gallops, or rubs. RESPIRATORY: Breath sounds equal bilaterally. No accessory muscle use. GASTROINTESTINAL: Abdomen soft, nondistended. + TTP in the epigastric are and lower abdomen but more in the epigastric area,. MUSCULOSKELETAL: left knee with some swelling, no erythema and crepitus with ROM. BACK: Nontender without obvious deformity. No CVA tenderness. Medications and IVs Current Medications Buspirone HCl (Buspar) 10 mg TID PO Last administered on 12/21/16 13:25; Start 12/13/16 at 09:00 Divalproex Sodium (Depakote Er) 500 mg BID PO Last administered on 12/20/16 08: 56; Start 12/12/16 at 21:00; Stop 12/20/16 at 17:15; Status DC Olanzapine (ZyPREXA) 10 mg Q12HR PO Last administered on 12/13/16 10:01; Start 12/12/16 at 21:00; Stop 12/13/16 at 13:43; Status DC Sodium Chloride (Sodium Chloride) 1 gm BID PO Last administered on 12/20/16 21: 00; Start 12/12/16 at 21:00 Ziprasidone (Geodon) 40 mg BIDPC PO Last administered on 12/13/16 10:01; Start 12/12/16 at 19:15; Stop 12/13/16 at 13:43; Status DC Non-Formulary Medication 1 mg Q12HR PO schizophrenia; Start 12/12/16 at 21:00; Status UNV Benztropine Mesylate (Cogentin) 1 mg Q12H PO Last administered on 12/13/16 10: 00; Start 12/12/16 at 21:00; Stop 12/13/16 at 13:07; Status DC Lorazepam (Ativan) 1 mg Q6H PRN PO MODERATE TO SEVERE ANXIETY Last administered on 12/19/16 23:07; Start 12/13/16 at 12:30 Lorazepam (Ativan Inj) 1 mg Q6H PRN IM MODERATE TO SEVERE ANXIETY Last administered on 12/16/16 17:26; Start 12/13/16 at 12:30 Diphenhydramine HCl (Benadryl) 50 mg HS PRN PO INSOMNIA; Start 12/13/16 at 12: 30; Stop 12/13/16 at 15:20; Status DC Acetaminophen (Tylenol) 650 mg Q4H PRN PO Pain 1-5 or Temp >101F Last administered on 12/21/16 11:03; Start 12/13/16 at 12:30 Magnesium Hydroxide (Milk Of Magnesia Liq) 30 ml DAILY PRN PO CONSTIPATION; Start 12/13/16 at 12:30 Al Hydrox/Mg Hydrox/Simethicone (Mag-Al Plus Susp Liq) 30 ml Q6H PRN PO DYSPEPSIA Last administered on 12/21/16 13:25; Start 12/13/16 at 12:30 Benztropine Mesylate (Cogentin) 1 mg Q12H PRN PO EXTRA PYRAMIDAL SYMPTOMS; Start 12/13/16 at 12:30 Benztropine Mesylate (Cogentin Inj) 1 mg Q12H PRN IM EXTRA PYRAMIDAL SYMPTOMS Last administered on 12/13/16 18:48; Start 12/13/16 at 12:30 Docusate Sodium (Colace) 100 mg BID PO Last administered on 12/21/16 09:05; Start 12/13/16 at 21:00 Bisacodyl (Dulcolax Ec) 10 mg DAILY PRN PO IF NO BM IN 48HRS Last administered on 12/16/16 12:53; Start 12/13/16 at 12:30 Olanzapine (ZyPREXA) 10 mg DAILY@09,15,21 PO Last administered on 12/21/16 14: 07; Start 12/13/16 at 15:00 Haloperidol (Haldol) 5 mg Q6H PRN PO AGITATION Last administered on 12/20/16 12 :24; Start 12/13/16 at 14:00 Haloperidol Lactate (Haldol Inj) 5 mg Q6H PRN IM AGITATION, unable to take PO Last administered on 12/19/16 23:24; Start 12/13/16 at 14:00 Trazodone HCl (Desyrel) 50 mg HS PRN PO INSOMNIA Last administered on 12/18/16 21:14; Start 12/13/16 at 21:00; Stop 12/19/16 at 12:51; Status DC Trazodone HCl (Desyrel) 100 mg HS PO Last administered on 12/19/16 21:04; Start 12/19/16 at 21:00; Stop 12/20/16 at 17:15; Status DC Divalproex Sodium (Depakote Er) 500 mg BID PO Last administered on 12/21/16 09: 06; Start 12/20/16 at 21:00 Trazodone HCl (Desyrel) 150 mg HS PO Last administered on 12/20/16 20:14; Start 12/20/16 at 21:00 Miscellaneous (Pill Splitter) 1 ea UNSCH PRN OTHER SEE LABEL COMMENTS; Start at 18:15 Divalproex Sodium (Depakote Er) 250 mg BID PO Last administered on 12/21/16 09: 06; Start 12/20/16 at 21:00 Pantoprazole Sodium (Protonix) 20 mg DAILY PO Last administered on 12/21/16 14: 07; Start 12/21/16 at 13:45 Promethazine HCl (Phenergan) 12.5 mg ONCE ONCE PO Last administered on 15:50; Start 12/21/16 at 15:30; Stop 12/21/16 at 15:31; Status DC A/P Problem List: (1) Intellectual disability ICD Code: F79 Status: Acute (2) Hyponatremia ICD Code: E87.1 Status: Acute (3) Altered mental status ICD Code: R41.82 Status: Acute (4) Adjustment disorder ICD Code: F43.20 Status: Acute Assessment and Plan Patient is a 56-year-old female with past medical history schizoaffective disorder, mental retardation, hyponatremia who came into the hospital status post fall from home. Intractable emesis/abdominal pain -diffuse but more in epigastric area. poor historian. ? gastritis -clinically she is stable and no need to transfer. -will get CT scan of abdomen and check LFTs. -increase Protonix to 40 mg PO daily and give Phenergan PRN. encourage oral intake. -d/w patient's nurse at bedside. chronic left knee pain -due to OA -continue with tyelonol PRN for pain. -can ice as needed. Schizoaffective disorder/ mental retardation -being managed by psych. DVT prophylaxis: Ambulation Problem Qualifiers (1) Adjustment disorder: Qualified Code: F43.25 - Adjustment disorder with mixed disturbance of emotions and conduct Karen Oquendo MD Dec 21, 2016 16:03
[2016-12-21] MEDS ORDERED: DIATRIZOATE MEGLUM/DIATRIZOATE SOD 9 ML CUP PO ONE (16:45)
[2016-12-21 17:34] VITALS: BP 123/84; PULSE 91; RESP 19; TEMP 99.9; O2SAT 95
[2016-12-21] MEDS: traZODone HCL 100 MG TAB PO SCH (20:26)
[2016-12-21] MEDS: LORazepam 1 MG TAB PO PRN (20:28)
[2016-12-22] MEDS ORDERED: IOHEXOL 350 MG/ML 10 ML VIAL (for RAD DIAG) IV ONE (00:16)
--- NOTE | 2016-12-22 00:26 | RADRPT ---
EXAM DATE/TIME: 12/22/2016 00:02 [place] COMPARISON: No previous studies available for comparison. INDICATIONS : Lower quadrant abdominal pain. IV CONTRAST: 90 cc Omnipaque 350 (iohexol) IV ORAL CONTRAST: Prescribed oral contrast ingested. RADIATION DOSE: 9.96 CTDIvol (mGy) MEDICAL HISTORY : Seizures. Cardiovascular disease Hypertension.Diabetes. Sickle cell. SURGICAL HISTORY : None. ENCOUNTER: Initial ACUITY: 1 day PAIN SCALE: 5/10 LOCATION: Left lower quadrant abdomen TECHNIQUE: Volumetric scanning of the abdomen and pelvis was performed. Using automated exposure control and ad justment of the mA and/or kV according to patient size, radiation dose was kept as low as reasonably achievable to obtain optimal diagnostic quality images. DICOM format image data is available electro nically for review and comparison. FINDINGS: LOWER LUNGS: The visualized lower lungs are clear. Scarring right lower lobe. LIVER: Homogeneous density without lesion. There is no dilation of the biliary tree. Status post cholecyste ctomy. SPLEEN: Normal size without lesion. PANCREAS: Within normal limits. KIDNEYS: Normal in size and shape. There is no mass, stone or hydronephrosis. ADRENAL GLANDS: Within normal limits. VASCULAR: There is no aortic aneurysm. BOWEL/MESENTERY: The stomach, small bowel, and colon demonstrate no acute abnormality. A few scattered diverticula wit hout diverticulitis. There is no free intraperitoneal air or fluid. ABDOMINAL WALL: Within normal limits. RETROPERITONEUM: There is no lymphadenopathy. BLADDER: No wall thickening or mass. REPRODUCTIVE: Uterus is surgically absent. INGUINAL: There is no lymphadenopathy or hernia. MUSCULOSKELETAL: Within normal limits for patient age. CONCLUSION: 1. Status post cholecystectomy. 2. No acute inflammatory process. 3. Status post hysterectomy. 4. Few scattered diverticula without diverticulitis. Michel Vargas MD on December 22, 2016 at 0:21 Board Certified Radiologist. This report was verified electronically.
[2016-12-22] MEDS: LORazepam 1 MG TAB PO PRN ×2 (02:00→22:18)
[2016-12-22 06:52] VITALS: BP 113/70; PULSE 78; RESP 16; TEMP 97.1; O2SAT 95
[2016-12-22] MEDS: PANTOPRAZOLE SOD 40 MG DELAYED RELEASE TAB PO SCH (08:44)
[2016-12-22] MEDS: DIVALPROEX SODIUM E.R. 500 MG TAB PO SCH ×2 (08:44→20:17)
[2016-12-22] MEDS: OLANZapine 10 MG TAB PO SCH ×3 (08:44→20:17)
[2016-12-22] MEDS: DOCUSATE SODIUM 100 MG CAP PO SCH ×2 (08:44→20:16)
[2016-12-22] MEDS: busPIRone HCL 10 MG TAB PO SCH ×3 (08:44→18:15)
[2016-12-22] MEDS: DIVALPROEX SODIUM E.R. 250 MG TAB PO SCH ×2 (08:44→20:17)
[2016-12-22] MEDS: SODIUM CHLORIDE 1 GRAM TAB PO SCH ×2 (08:44→20:32)
[2016-12-22 09:01] LABS: ANION GAP 6 MEQ/L (5-15); AST (GOT) 12 U/L (15-37); BICARBONATE 31.2 MEQ/L (21.0-32.0); BLOOD UREA NITROGEN 12 MG/DL (7-18); CHLORIDE 101 MEQ/L (98-107); GLOMERULAR FILTRATION RATE 147 ML/MIN (>89); POTASSIUM 4.2 MEQ/L (3.5-5.1); SODIUM (NA) 138 MEQ/L (136-145)
[2016-12-22 09:05] LABS: ALKALINE PHOSPHATASE 84 U/L (45-117); ALT (GPT) 16 U/L (10-53); TOTAL BILIRUBIN ADULT 0.2 MG/DL (0.2-1.0)
[2016-12-22 11:29] LABS: HEMATOCRIT 29.8 % (35.0-46.0); MEAN CELL VOLUME 87.3 FL (80.0-100.0); MEAN CORPUSCULAR HEMOGLOBIN 28.4 PG (27.0-34.0); MEAN CORPUSCULAR HGB CONC 32.5 % (32.0-36.0); PLATELET COUNT 151 TH/MM3 (150-450); RED BLOOD COUNT 3.41 MIL/MM3 (4.00-5.30); RED CELL DISTRIBUTION WIDTH 14.6 % (11.6-17.2); REVIEW FLAG FINAL
--- NOTE | 2016-12-22 12:30 | HHI.PYPN ---
Subjective Remarks Pt seen and discussed with staff. Less labile. No behavioral problems. Spending most of day resting in med. Medicine consulted for abdominal pain and emesis. No vomiting or diarrhea today. No SI/HI Objective Alert: Yes [place]: Person, Place, Date Mood: Other (mildly irritable) Affect: Labile (decreased) Memory Intact: Comment (fair) Hallucinations: Other (None) Delusions: No Delusion Type: Other (No delusions elicited) Suicidal: Ideation (Denies SI) Homicidal: Ideation (Denies HI) Insight/Judgment poor Labs Test 12/22/16 12/22/16 08:18 11:02 Sodium Level 138 MEQ/L Potassium Level 4.2 MEQ/L Chloride Level 101 MEQ/L Carbon Dioxide Level 31.2 MEQ/L Anion Gap 6 MEQ/L Blood Urea Nitrogen 12 MG/DL Creatinine 0.44 MG/DL Estimat Glomerular Filtration 147 ML/MIN Rate Random Glucose 90 MG/DL Calcium Level 8.3 MG/DL Total Bilirubin 0.2 MG/DL Aspartate Amino Transf 12 U/L (AST/SGOT) Alanine Aminotransferase 16 U/L (ALT/SGPT) Alkaline Phosphatase 84 U/L Total Protein 5.3 GM/DL Albumin 2.4 GM/DL Lipase 146 U/L White Blood Count 3.0 TH/MM3 Red Blood Count 3.41 MIL/MM3 Hemoglobin 9.7 GM/DL Hematocrit 29.8 % Mean Corpuscular Volume 87.3 FL Mean Corpuscular Hemoglobin 28.4 PG Mean Corpuscular Hemoglobin 32.5 % Concent Red Cell Distribution Width 14.6 % Platelet Count 151 TH/MM3 Mean Platelet Volume 7.3 FL Vitals/IOs Vital Signs Date Time Temp Pulse Resp B/P Pulse Ox O2 Delivery O2 Flow Rate FiO2 12/22/16 06:52 97.1 78 16 113/70 95 Assessment & Plan Problem List: (1) Adjustment disorder ICD Code: F43.20 (2) Intellectual disability ICD Code: F79 Assessment & Plan Continue current tx plan. Estimated LOS: days Justification for Cont. Inpt. risk of decompensation Request HC Surrog/Guard Advoc?: Yes Problem Qualifiers (1) Adjustment disorder: Qualified Code: F43.25 - Adjustment disorder with mixed disturbance of emotions and conduct Doris Campos MD Dec 22, 2016 12:30
[2016-12-22] MEDS: HALOPERIDOL 5 MG TAB PO PRN ×2 (14:19→22:18)
[2016-12-22] MEDS: BISACODYL EC 5 MG TABEC PO PRN (18:15)
[2016-12-22] MEDS: traZODone HCL 100 MG TAB PO SCH (20:17)
[2016-12-23 06:03] VITALS: BP 127/62; PULSE 96; RESP 18; TEMP 97.8; O2SAT 98
[2016-12-23] MEDS: PANTOPRAZOLE SOD 40 MG DELAYED RELEASE TAB PO SCH ×2 (09:00→10:17)
[2016-12-23] MEDS: DIVALPROEX SODIUM E.R. 500 MG TAB PO SCH ×3 (09:00→21:15)
[2016-12-23] MEDS: SODIUM CHLORIDE 1 GRAM TAB PO SCH ×2 (09:00→21:00)
[2016-12-23] MEDS: DOCUSATE SODIUM 100 MG CAP PO SCH ×3 (09:00→21:16)
[2016-12-23] MEDS: DIVALPROEX SODIUM E.R. 250 MG TAB PO SCH ×3 (09:00→21:15)
[2016-12-23] MEDS: OLANZapine 10 MG TAB PO SCH ×4 (09:00→21:00)
[2016-12-23] MEDS: busPIRone HCL 10 MG TAB PO SCH ×4 (09:00→17:27)
--- NOTE | 2016-12-23 09:30 | HHI.PYPN ---
Subjective Remarks Patient seen and examined with counselor and nurse. Chart reviewed. Case discussed with counselor and nurse. Per nursing staff, the patient banged her head yesterday in self-injurious fashion. She also refused breakfast. Nurse did speak with niece, who says she might be able to accept patient back if behaviors were better controlled. On my examination, patient is with 1:1. She presents as petulant and childlike. She says she is in a "bad mood." She is upset because she believes that her niece will not accept her back. She says "no food is going in my throat. No food in me. No meds in me. I will break the needle." Subsequently observed eating breakfast. Denies side effects from medications. No physical complaints. Review of Systems ROS Limitations: Poor Historian Except as stated in HPI: all other systems reviewed are Neg Objective Alert: Yes [place]: Person, Place, Date Mood: Oppositional, Other (dysphoric) Affect: Restricted, Other (childlike) Memory Intact: Comment (fair) Hallucinations: Other (no hallucinations) Delusions: No Delusion Type: Other (no delusions) Suicidal: Ideation (no SI but is threatening not to eat) Homicidal: Ideation (no HI) Insight/Judgment Poor Remarks No motor abnormalities noted. Grooming and hygiene fair at best. No signs of physical trauma from reported self-injury yesterday. Labs Test 12/22/16 11:02 White Blood Count 3.0 TH/MM3 Red Blood Count 3.41 MIL/MM3 Hemoglobin 9.7 GM/DL Hematocrit 29.8 % Mean Corpuscular Volume 87.3 FL Mean Corpuscular Hemoglobin 28.4 PG Mean Corpuscular Hemoglobin 32.5 % Concent Red Cell Distribution Width 14.6 % Platelet Count 151 TH/MM3 Mean Platelet Volume 7.3 FL Labs reviewed. Mild interval worsening of anemia. Last Impressions Abdomen/Pelvis CT 12/21/16 0000 Signed Impressions: Service Date/Time: Thursday, December 22, 2016 00:02 - CONCLUSION: 1. Status post cholecystectomy. 2. No acute inflammatory process. 3. Status post hysterectomy. 4. Few scattered diverticula without diverticulitis. Michel Vargas MD Vitals/IOs Vital Signs Date Time Temp Pulse Resp B/P Pulse Ox O2 Delivery O2 Flow Rate FiO2 12/23/16 06:03 97.8 96 18 127/62 98 Assessment & Plan Problem List: (1) Adjustment disorder ICD Code: F43.20 (2) Intellectual disability ICD Code: F79 Assessment & Plan Ongoing periodic behavioral disturbance in setting of intellectual disability. Depakote titrated before weekend, and a VPA level ordered for tomorrow morning. In the meantime, I will schedule a small dose of Thorazine as patient is already on a robust dose of Zyprexa. Check updated EKG for QTc. Hospitalist input noted and appreciated. Continue one-to-one for now. Continue to monitor on the high acuity unit. Continue other medications and care as ordered. Justification for Cont. Inpt. Impairment in safety. Medication changes in process. High risk for decompensation in a less restrictive environment. Discharge Planning Pending stabilization. Placement versus home with niece. Request HC Surrog/Guard Advoc?: Yes Problem Qualifiers (1) Adjustment disorder: Qualified Code: F43.25 - Adjustment disorder with mixed disturbance of emotions and conduct Igor Lawrence MD Dec 23, 2016 09:30
[2016-12-23] MEDS: HALOPERIDOL LACTATE 5 MG/ML AMP IM PRN ×2 (13:39→20:24)
[2016-12-23] MEDS: LORazepam 2 MG/ML VIAL IM PRN ×2 (13:39→20:24)
[2016-12-23 18:07] VITALS: BP 110/60; PULSE 95; RESP 18; TEMP 97.5; O2SAT 96
[2016-12-23] MEDS: traZODone HCL 100 MG TAB PO SCH (21:16)
[2016-12-24 05:55] VITALS: BP 121/60; PULSE 84; RESP 18; TEMP 98; O2SAT 97
[2016-12-24] MEDS: SODIUM CHLORIDE 1 GRAM TAB PO SCH ×2 (09:00→21:00)
[2016-12-24] MEDS: OLANZapine 10 MG TAB PO SCH ×3 (09:00→21:00)
[2016-12-24] MEDS: DIVALPROEX SODIUM E.R. 250 MG TAB PO SCH ×2 (09:00→21:12)
[2016-12-24] MEDS: busPIRone HCL 10 MG TAB PO SCH ×3 (09:00→17:48)
[2016-12-24] MEDS: DIVALPROEX SODIUM E.R. 500 MG TAB PO SCH ×2 (09:00→21:12)
[2016-12-24] MEDS: DOCUSATE SODIUM 100 MG CAP PO SCH ×2 (09:00→21:12)
[2016-12-24] MEDS: PANTOPRAZOLE SOD 40 MG DELAYED RELEASE TAB PO SCH (09:00)
--- NOTE | 2016-12-24 09:25 | HHI.PYPN ---
Subjective Remarks Patient seen and examined with nurse. Chart reviewed. Case discussed in treatment team with nurse, counselor and occupational therapist. Per RN, patient has a behavioral outburst last night as ably documented in nurse Fermin' s notes. She received Haldol and Ativan PRN and was calm for a time thereafter. On my examination this morning, patient is initially petulant and negativistic. When she finally does talk, she says, "might as well cut my throat." She is quite childlike and oppositional. She remains dysphoric. She is apparently upset that Sun has not visited her. Subsequently, while on rounds, patient has attention-seeking tantrum and I note that having 1:1 present seems to feed into this behavior, and I have discontinued the 1:1. Patient continued to tantrum throughout the morning, requiring [id number] calls x 2 to manage her agitation. Following the first outburst, which was primarily verbal, I ordered patient medicated with Haldol/Ativan/Benadryl and placed in locked seclusion until she calmed. However, she continued to escalate and was at risk for significant self-injury, and so I had to order her placed in locked restraints. She was also given additional Haldol. I was present both at initiation of seclusion and at initiation of restraints and evaluated patient [id number] as required. No side effects from medications. No physical complaints. Review of Systems ROS Limitations: Poor Historian Except as stated in HPI: all other systems reviewed are Neg Objective Alert: Yes [place]: Person, Place (at least) Mood: Agitated, Angry, Oppositional Affect: Restricted (childlike and petulant) Memory Intact: Comment (fair) Hallucinations: Other (No AVH) Delusions: No Delusion Type: Other (No delusions) Suicidal: Ideation (As above) Homicidal: Ideation (no HI) Insight/Judgment Poor Remarks No motor abnormalities noted. Grooming and hygiene fair at best. Labs Labs reviewed. It appears that patient refused laboratories and was unable to receive EKG because of her level of agitation. Vitals/IOs Vital Signs Date Time Temp Pulse Resp B/P Pulse Ox O2 Delivery O2 Flow Rate FiO2 12/24/16 05:55 98.0 84 18 121/60 97 Assessment & Plan Problem List: (1) Adjustment disorder ICD Code: F43.20 (2) Intellectual disability ICD Code: F79 Assessment & Plan Titrate Thorazine to 100mg BID. To consider a midday dose. Continue other medications as ordered. Try to obtain labs again tomorrow morning if patient is calm. I do believe 1:1 is feeding into behaviors at this point and is counter-therapeutic. D/c 1:1. D/c restraints once safe to do so. Continue to monitor on the high acuity unit. Continue other medications and care as ordered. Justification for Cont. Inpt. Impairment in safety. Impairment in social function. Medication changes in process. High risk for decompensation in a less restrictive environment. Discharge Planning Possible discharge home with niece once stable versus placement. Request HC Surrog/Guard Advoc?: Yes Problem Qualifiers (1) Adjustment disorder: Qualified Code: F43.25 - Adjustment disorder with mixed disturbance of emotions and conduct Igor Lawrence MD Dec 24, 2016 09:25
[2016-12-24] MEDS: LORazepam 2 MG/ML VIAL IM PRN (09:35)
[2016-12-24] MEDS: HALOPERIDOL LACTATE 5 MG/ML AMP IM PRN (09:35)
[2016-12-24] MEDS ORDERED: diphenhydrAMINE HCL 50 MG/ML VIAL IM STA (09:36)
[2016-12-24] MEDS ORDERED: HALOPERIDOL LACTATE 5 MG/ML AMP IM ONE (11:00)
--- NOTE | 2016-12-24 14:11 | PD.TTN ---
Present for Treatment Team Treatment Team Staff: Provider (Dr. Lawrence), Nurse (Jose Bear RN), Psych Therapist (TOSHIA Robbins), Occupational Therapist (Clark Partida OT) Patient Problems 1. Discharge planning 2. Medication compliance 3. Knowledge deficit 4. Lack of coping skills Progress Toward Goals Provider Input: Pt medication regiment will continue to be adjusted to assist with further stabilization. Pt will likely be discharged back to family once stable. Nurse Input: Pt remains with behavioral outbursts requiring ETOs and she appears defiant, uncooperative, childlike, easily agitated and noncompliant with medication regiment. Psych Therapist Input: Pt appears easily agitated, with poor insight, impulsive, defiant, childlike, uncooperative and with limited coping skills. Pt is poorly engaged in treatment and does not appear to have desire to improve symptoms or ways to cope with them. Occupational Therapist Input: Pt attendence has dropped from earlier weeks and she is not attending groups at this time. Documentation Scribe: TOSHIA Robbins Date Resolved: Dec 24, 2016 Sai Nelson Dec 24, 2016 14:11
--- NOTE | 2016-12-24 15:49 | HHI.PR ---
Subjective Remarks Follow up visit abdominal pain, intractable emesis. Patient seen and examined today. Nurse was at the bedside. Patient reports continued abdominal pain, not worsening but remains. States she has 4 times diarrhea today. She also states that she has lots of pain because they give her "4 shots." When she was asked why they gave her shots patient states that she was misbehaving all day. Patient also reports that she did not allow contracting officer to draw blood today. Denies SOB/ dyspnea. Denies chest pain, palpitations, headaches, dizziness. Denies fevers, chills, n/v. As per staff, patient's issues are mostly behavioral. Has not complained of any abdominal pain today. She was also monitored when she went to the bathroom and there was no BM noted she voided 4 times. Objective Vitals Vital Signs Date Time Temp Pulse Resp B/P Pulse Ox O2 Delivery O2 Flow Rate FiO2 12/24/16 05:55 98.0 84 18 121/60 97 12/23/16 18:07 97.5 95 18 110/60 96 Result Diagram: 12/22/16 1102 12/22/16 0818 Imaging Last Impressions Abdomen/Pelvis CT 12/21/16 0000 Signed Impressions: Service Date/Time: Thursday, December 22, 2016 00:02 - CONCLUSION: 1. Status post cholecystectomy. 2. No acute inflammatory process. 3. Status post hysterectomy. 4. Few scattered diverticula without diverticulitis. Michel Vargas MD Objective Remarks GENERAL: This is a well-nourished, well-developed patient, in no apparent distress. SKIN: Warm and dry. HEENT: Normocephalic. Pupils equal round and reactive. Nose without bleeding. Airway patent. NECK: Trachea midline. No JVD. Supple. CARDIOVASCULAR: Regular rate and rhythm without murmurs, gallops, or rubs. RESPIRATORY: Clear to auscultation. Breath sounds equal bilaterally. No wheezes , rales, or rhonchi. GASTROINTESTINAL: Abdomen soft, nondistended. Bowel Sounds normoactive x4. Deep palpation no facial grimacing noted nor patient if appears to be in pain. MUSCULOSKELETAL: Extremities without clubbing, cyanosis, or edema. NEUROLOGICAL: Awake and alert. Oriented to place, person. Moves all extremities. Normal speech. A/P Problem List: (1) Intellectual disability ICD Code: F79 Status: Acute (2) Hyponatremia ICD Code: E87.1 Status: Acute (3) Altered mental status ICD Code: R41.82 Status: Acute (4) Adjustment disorder ICD Code: F43.20 Status: Acute Assessment and Plan Patient is a 56-year-old female with past medical history schizoaffective disorder, mental retardation, hyponatremia who came into the hospital status post fall from home. She is now admitted to inpatient psychiatry unit for further evaluation. Consulted for medical management. Abdominal pain, diarrhea, emesis - CT of the abdomen and pelvis showed status post cholecystectomy. 2. No acute inflammatory process. 3. Status post hysterectomy. 4. Few scattered diverticula without diverticulitis. - LFTs 12/22/16 within normal, AST 12 - Denies any emesis today. As per staff patient has not complained of any abdominal pain today. She complained of diarrhea 4 but as per staff, patient has not had any bowel movements a day and was observed in the bathroom only voiding 4. - We'll redraw labs - Continue Protonix, continue Phenergan when necessary Hyponatremia Tegretol was discontinued. Much improved. - continue sodium tablets. - encourage PO intake. - Improved Schizoaffective disorder/ mental retardation Has had medication adjustments s/t hyponatremia. - Being treated by psychiatry. HTN Blood pressure fluctuates. - BP within normal - Continue to monitor trend DVT prophylaxis: Ambulation Full code Discussed with patient, nursing, Dr. Marianna Flores from Hospitalist standpoint. We will sign off once labs are within normal. Problem Qualifiers (1) Adjustment disorder: Qualified Code: F43.25 - Adjustment disorder with mixed disturbance of emotions and conduct Ramón Quintanilla [facility] Dec 24, 2016 15:49
[2016-12-24 17:23] VITALS: BP 139/75; PULSE 107; RESP 19; TEMP 97.5; O2SAT 100
[2016-12-24 17:52] LABS: AUTOMATED NEUTROPHIL # 3.4 TH/MM3 (1.8-7.7); BASOPHIL % 0.5 % (0.0-2.0); EOSINOPHIL # 0.1 TH/MM3 (0-0.4); EOSINOPHIL % 1.1 % (0.0-4.0); HEMATOCRIT 31.7 % (35.0-46.0); HEMO FLAGS DIFF FINAL; LYMPH % 18.9 % (9.0-44.0); LYMPHOCYTE # 0.9 TH/MM3 (1.0-4.8); MEAN CORPUSCULAR HEMOGLOBIN 28.7 PG (27.0-34.0); MONO % 8.6 % (0.0-8.0); NEUT % 70.9 % (16.0-70.0); PLATELET COUNT 175 TH/MM3 (150-450); RED BLOOD COUNT 3.64 MIL/MM3 (4.00-5.30); RED CELL DISTRIBUTION WIDTH 14.3 % (11.6-17.2); WHITE BLOOD COUNT 4.8 TH/MM3 (4.0-11.0)
[2016-12-24 18:15] LABS: BICARBONATE 28.1 MEQ/L (21.0-32.0); POTASSIUM 4.1 MEQ/L (3.5-5.1)
[2016-12-24] MEDS: BACITRACIN TOP OINT 15 GM TUBE TOPICAL SCH (21:13)
[2016-12-24] MEDS: traZODone HCL 100 MG TAB PO SCH (21:13)
[2016-12-25 06:03] VITALS: BP 117/64; PULSE 106; RESP 18; TEMP 97.9; O2SAT 96
[2016-12-25] MEDS: BACITRACIN TOP OINT 15 GM TUBE TOPICAL SCH ×2 (08:52→21:42)
[2016-12-25] MEDS: busPIRone HCL 10 MG TAB PO SCH ×3 (08:52→18:03)
[2016-12-25] MEDS: DOCUSATE SODIUM 100 MG CAP PO SCH ×2 (08:53→21:39)
[2016-12-25] MEDS: DIVALPROEX SODIUM E.R. 500 MG TAB PO SCH ×2 (08:53→21:39)
[2016-12-25] MEDS: DIVALPROEX SODIUM E.R. 250 MG TAB PO SCH ×2 (08:53→21:39)
[2016-12-25] MEDS: PANTOPRAZOLE SOD 40 MG DELAYED RELEASE TAB PO SCH (08:54)
[2016-12-25] MEDS: OLANZapine 10 MG TAB PO SCH ×3 (08:54→21:00)
[2016-12-25] MEDS: SODIUM CHLORIDE 1 GRAM TAB PO SCH ×2 (09:00→21:00)
--- NOTE | 2016-12-25 09:35 | HHI.PYPN ---
Subjective Remarks Patient seen and examined with counselor and nurse. Chart reviewed. Case discussed with nursing staff reports that the patient has had no explosive outbursts so far this morning. On my examination today, the patient presents as petulant and childlike. She is somewhat negativistic and oppositional. She says "you took my one-to-one away from me. I'm not eating. I don't care if you put a feeding tube in me." Charting indicates that the patient refused breakfast this morning but took all of her meals yesterday. Denies side effects from medications. No physical complaints. Review of Systems ROS Limitations: Poor Historian Except as stated in HPI: all other systems reviewed are Neg Objective Alert: Yes [place]: Person, Place Mood: Oppositional Affect: Restricted (quite childlike) Memory Intact: Comment (fair) Hallucinations: Other (No hallucinations) Delusions: No Delusion Type: Other (No delusions) Suicidal: Ideation (As above. No SI or SIB today.) Homicidal: Ideation (no HI) Insight/Judgment Poor Remarks No abnormal motor movements noted. Grooming and hygiene fair. Labs Test 12/24/16 17:39 White Blood Count 4.8 TH/MM3 Red Blood Count 3.64 MIL/MM3 Hemoglobin 10.4 GM/DL Hematocrit 31.7 % Mean Corpuscular Volume 87.0 FL Mean Corpuscular Hemoglobin 28.7 PG Mean Corpuscular Hemoglobin 33.0 % Concent Red Cell Distribution Width 14.3 % Platelet Count 175 TH/MM3 Mean Platelet Volume 7.3 FL Neutrophils (%) (Auto) 70.9 % Lymphocytes (%) (Auto) 18.9 % Monocytes (%) (Auto) 8.6 % Eosinophils (%) (Auto) 1.1 % Basophils (%) (Auto) 0.5 % Neutrophils # (Auto) 3.4 TH/MM3 Lymphocytes # (Auto) 0.9 TH/MM3 Monocytes # (Auto) 0.4 TH/MM3 Eosinophils # (Auto) 0.1 TH/MM3 Basophils # (Auto) 0.0 TH/MM3 CBC Comment DIFF FINAL Differential Comment Sodium Level 138 MEQ/L Potassium Level 4.1 MEQ/L Chloride Level 101 MEQ/L Carbon Dioxide Level 28.1 MEQ/L Anion Gap 9 MEQ/L Blood Urea Nitrogen 15 MG/DL Creatinine 0.71 MG/DL Estimat Glomerular Filtration 85 ML/MIN Rate Random Glucose 142 MG/DL Calcium Level 8.4 MG/DL Ammonia 35 MCMOL/L Valproic Acid (Depakene) Level 70 MCG/ML Laboratories reviewed. CBC reveals improved anemia. BMP reveals mildly decreased GFR area and ammonia level very mildly elevated without any evidence of encephalopathy. No hyponatremia. Depakote level within the therapeutic range. Vitals/IOs Vital Signs Date Time Temp Pulse Resp B/P Pulse Ox O2 Delivery O2 Flow Rate FiO2 12/25/16 06:03 97.9 106 18 117/64 96 Assessment & Plan Problem List: (1) Adjustment disorder ICD Code: F43.20 (2) Intellectual disability ICD Code: F79 Assessment & Plan Continue Thorazine 100 mg twice daily for now. We might still consider titrating this medication, but I would like to monitor further at the current dose before adjusting. Continue Zyprexa and Depakote as ordered. I will order some lactulose for the hyperammonemia and recheck an ammonia level later this week. Continue to monitor on the high acuity inpatient unit. Continue other medications and care as ordered. Justification for Cont. Inpt. Impairment in social function. High risk for decompensation in a less restrictive environment. Discharge Planning Home with niece; placement as an alternative option. Request HC Surrog/Guard Advoc?: Yes Problem Qualifiers (1) Adjustment disorder: Qualified Code: F43.25 - Adjustment disorder with mixed disturbance of emotions and conduct Igor Lawrence MD Dec 25, 2016 09:35
--- NOTE | 2016-12-25 14:40 | HHI.PR ---
Addendum to Inpatient Note Addendum Reason: Additional Documentation Additional Information Labs reviewed. Within normal. As per staff, no complaints throughout the day. Behavioral issues continues. Stable from Hospitalist standpoint. We will sign off. Reconsult as needed. Ramón Quintanilla Dec 25, 2016 14:40
[2016-12-25 17:58] VITALS: BP 128/88; PULSE 86; RESP 16; TEMP 98.8; O2SAT 98
[2016-12-25] MEDS: traZODone HCL 100 MG TAB PO SCH (21:39)
[2016-12-26 06:30] VITALS: BP 102/56; PULSE 71; RESP 16; TEMP 97.8; O2SAT 96
[2016-12-26] MEDS: OLANZapine 10 MG TAB PO SCH ×3 (09:00→20:24)
[2016-12-26] MEDS: PANTOPRAZOLE SOD 40 MG DELAYED RELEASE TAB PO SCH (09:00)
[2016-12-26] MEDS: SODIUM CHLORIDE 1 GRAM TAB PO SCH ×2 (09:00→20:25)
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
[2016-12-26] MEDS: DIVALPROEX SODIUM E.R. 250 MG TAB PO SCH ×2 (09:28→20:23)
[2016-12-26] MEDS: busPIRone HCL 10 MG TAB PO SCH ×3 (09:28→18:00)
[2016-12-26] MEDS: BACITRACIN TOP OINT 15 GM TUBE TOPICAL SCH ×2 (09:28→20:24)
[2016-12-26] MEDS: DOCUSATE SODIUM 100 MG CAP PO SCH ×2 (09:28→20:21)
[2016-12-26] MEDS: LACTULOSE SYRUP 20 GM/30 ML CUP PO SCH (09:29)
[2016-12-26] MEDS: DIVALPROEX SODIUM E.R. 500 MG TAB PO SCH ×2 (09:29→20:24)
[2016-12-26 17:56] VITALS: BP 115/71; PULSE 103; RESP 17; TEMP 79.4; O2SAT 97
[2016-12-26] MEDS: HALOPERIDOL 5 MG TAB PO PRN (20:22)
[2016-12-26] MEDS: traZODone HCL 100 MG TAB PO SCH (20:22)
[2016-12-26] MEDS: LORazepam 2 MG/ML VIAL IM PRN (21:01)
[2016-12-27 05:58] VITALS: BP 98/56; PULSE 98; RESP 18; TEMP 97.6; O2SAT 96
[2016-12-27] MEDS: SODIUM CHLORIDE 1 GRAM TAB PO SCH ×2 (09:00→20:50)
--- NOTE | 2016-12-27 09:01 | HHI.PYPN ---
Subjective Remarks Patient seen and examined with nurse. Chart reviewed. Case discussed with nursing staff who reports that the patient was threatening self injury and threatening violence in a manipulative attempt to try to obtain a one-to-one sitter. On my examination today, the patient presents as petulant and childlike. She says that she is "very angry. The one-to-one was the only one who calmed me down. She talks to me. She plays cards with me. No one-to-one, no food goes in me." Patient refused breakfast but took 100% of lunch. No side effects from medications. No physical complaints. Review of Systems ROS Limitations: Poor Historian Except as stated in HPI: all other systems reviewed are Neg Objective Alert: Yes [place]: Person, Place Mood: Oppositional Affect: Other (quite childlike) Memory Intact: Comment (fair) Hallucinations: Other (no hallucinations) Delusions: No Delusion Type: Other (no delusions) Suicidal: Ideation (No SI) Homicidal: Ideation (No HI) Insight/Judgment Poor Remarks No motor abnormalities noted. Labs Labs reviewed. Elevated ammonia level noted. Vitals/IOs Vital Signs Date Time Temp Pulse Resp B/P Pulse Ox O2 Delivery O2 Flow Rate FiO2 12/27/16 05:58 97.6 98 18 98/56 96 Intake and Output 12/26/16 12/26/16 12/27/16 08:00 16:00 00:00 Intake Total 340 ml Balance 340 ml Assessment & Plan Problem List: (1) Adjustment disorder ICD Code: F43.20 (2) Intellectual disability ICD Code: F79 Assessment & Plan Titrate Thorazine to 100mg TID. Continue Zyprexa and Depakote as ordered. Titrate lactulose and recheck an ammonia level after weekend. Patient engaging in behaviors to try to get a 1:1 back because she liked the attention. I will not give in to these manipulations as I feel it is counter-therapeutic. Continue to monitor on the high acuity unit. Continue other medications and care as ordered. Justification for Cont. Inpt. Impairment in social function. Medication changes in process. High risk for decompensation in a less restrictive environment. Discharge Planning Placement versus home with niece Request HC Surrog/Guard Advoc?: Yes Problem Qualifiers (1) Adjustment disorder: Qualified Code: F43.25 - Adjustment disorder with mixed disturbance of emotions and conduct Chaiffetz,Igor B. MD Dec 27, 2016 09:01
[2016-12-27] MEDS: DIVALPROEX SODIUM E.R. 500 MG TAB PO SCH ×2 (10:48→20:46)
[2016-12-27] MEDS: DOCUSATE SODIUM 100 MG CAP PO SCH ×2 (10:48→20:46)
[2016-12-27] MEDS: DIVALPROEX SODIUM E.R. 250 MG TAB PO SCH ×2 (10:48→20:46)
[2016-12-27] MEDS: busPIRone HCL 10 MG TAB PO SCH ×3 (10:48→19:58)
[2016-12-27] MEDS: PANTOPRAZOLE SOD 40 MG DELAYED RELEASE TAB PO SCH (10:49)
[2016-12-27] MEDS: OLANZapine 10 MG TAB PO SCH ×3 (10:49→20:50)
[2016-12-27] MEDS: BACITRACIN TOP OINT 15 GM TUBE TOPICAL SCH ×2 (10:49→20:50)
[2016-12-27] MEDS: LACTULOSE SYRUP 20 GM/30 ML CUP PO SCH ×2 (10:50→20:50)
[2016-12-27] MEDS: ACETAMINOPHEN 325 MG TAB PO PRN (14:50)
[2016-12-27 17:19] VITALS: BP 128/59; PULSE 87; RESP 18; TEMP 98.1; O2SAT 97
[2016-12-27 20:09] VITALS: BP 114/58; PULSE 86; RESP 16; TEMP 98.1; O2SAT 96
[2016-12-27] MEDS: traZODone HCL 100 MG TAB PO SCH (20:49)
[2016-12-28] MEDS: LORazepam 1 MG TAB PO PRN ×2 (04:10→16:06)
[2016-12-28 04:32] VITALS: BP 111/59; PULSE 98; RESP 18; TEMP 97.5; O2SAT 97
[2016-12-28] MEDS: DIVALPROEX SODIUM E.R. 250 MG TAB PO SCH ×2 (08:45→20:21)
[2016-12-28] MEDS: PANTOPRAZOLE SOD 40 MG DELAYED RELEASE TAB PO SCH (08:45)
[2016-12-28] MEDS: SODIUM CHLORIDE 1 GRAM TAB PO SCH ×2 (08:45→20:19)
[2016-12-28] MEDS: OLANZapine 10 MG TAB PO SCH ×3 (08:45→20:20)
[2016-12-28] MEDS: LACTULOSE SYRUP 20 GM/30 ML CUP PO SCH ×2 (08:45→20:20)
[2016-12-28] MEDS: BACITRACIN TOP OINT 15 GM TUBE TOPICAL SCH ×2 (08:45→20:21)
[2016-12-28] MEDS: DIVALPROEX SODIUM E.R. 500 MG TAB PO SCH ×2 (08:45→20:21)
[2016-12-28] MEDS: DOCUSATE SODIUM 100 MG CAP PO SCH ×2 (08:45→20:19)
[2016-12-28] MEDS: busPIRone HCL 10 MG TAB PO SCH ×3 (08:45→16:07)
--- NOTE | 2016-12-28 12:28 | HHI.PYPN ---
Subjective Remarks Issue was seen and case discussed with nursing. Patient is childlike during the interview telling a temper tantrum because she did not get cheese or hamburger, loud, yelling when she doesn't get her way. However we were able to redirect her she returned in the her meal. Perseverant on discharge today. Compliant with medications Objective Alert: Yes [place]: Person, Place Mood: Agitated, Oppositional Affect: Other (quite childlike) Memory Intact: Comment (fair) Hallucinations: Other (no hallucinations) Delusions: No Delusion Type: Other (no delusions) Suicidal: Ideation (No SI) Homicidal: Ideation (No HI) Insight/Judgment Poor Vitals/IOs Vital Signs Date Time Temp Pulse Resp B/P Pulse Ox O2 Delivery O2 Flow Rate FiO2 12/28/16 04:32 97.5 98 18 111/59 97 Assessment & Plan Problem List: (1) Adjustment disorder ICD Code: F43.20 (2) Intellectual disability ICD Code: F79 Assessment & Plan Continue current treatment plan Justification for Cont. Inpt. Patient will decompensate in a less restrictive setting Request HC Surrog/Guard Advoc?: Yes Problem Qualifiers (1) Adjustment disorder: Qualified Code: F43.25 - Adjustment disorder with mixed disturbance of emotions and conduct Josesito Salgado DO Dec 28, 2016 12:28
[2016-12-28 17:47] VITALS: BP 105/58; PULSE 92; RESP 18; TEMP 97.6; O2SAT 99
[2016-12-28] MEDS: traZODone HCL 100 MG TAB PO SCH (20:19)
[2016-12-29 05:23] VITALS: BP 129/66; PULSE 100; RESP 18; TEMP 97.6; O2SAT 98
[2016-12-29] MEDS: DIVALPROEX SODIUM E.R. 500 MG TAB PO SCH ×2 (08:15→20:47)
[2016-12-29] MEDS: DIVALPROEX SODIUM E.R. 250 MG TAB PO SCH ×2 (08:15→20:47)
[2016-12-29] MEDS: LACTULOSE SYRUP 20 GM/30 ML CUP PO SCH ×2 (08:16→20:48)
[2016-12-29] MEDS: busPIRone HCL 10 MG TAB PO SCH ×4 (08:16→16:54)
[2016-12-29] MEDS: PANTOPRAZOLE SOD 40 MG DELAYED RELEASE TAB PO SCH (08:16)
[2016-12-29] MEDS: SODIUM CHLORIDE 1 GRAM TAB PO SCH ×2 (08:16→20:48)
[2016-12-29] MEDS: OLANZapine 10 MG TAB PO SCH ×3 (08:17→20:48)
[2016-12-29] MEDS: DOCUSATE SODIUM 100 MG CAP PO SCH ×2 (08:17→20:47)
[2016-12-29] MEDS: BACITRACIN TOP OINT 15 GM TUBE TOPICAL SCH ×2 (09:00→20:48)
--- NOTE | 2016-12-29 16:51 | HHI.PYPN ---
Subjective Remarks Patient was seen and case discussed with nursing. She is less childlike and oppositional today. No outbursts or mood swings. Is perseverant on discharge. Tolerating her medications well Objective Alert: Yes [place]: Person, Place Mood: Oppositional Affect: Other (quite childlike) Memory Intact: Comment (fair) Hallucinations: Other (no hallucinations) Delusions: No Delusion Type: Other (no delusions) Suicidal: Ideation (No SI) Homicidal: Ideation (No HI) Insight/Judgment Poor Vitals/IOs Vital Signs Date Time Temp Pulse Resp B/P Pulse Ox O2 Delivery O2 Flow Rate FiO2 12/29/16 05:23 97.6 100 18 129/66 98 Assessment & Plan Problem List: (1) Adjustment disorder ICD Code: F43.20 (2) Intellectual disability ICD Code: F79 Assessment & Plan Continue current treatment plan Justification for Cont. Inpt. Patient will decompensate in a less restrictive setting Request HC Surrog/Guard Advoc?: Yes Problem Qualifiers (1) Adjustment disorder: Qualified Code: F43.25 - Adjustment disorder with mixed disturbance of emotions and conduct Josesito Salgado DO Dec 29, 2016 16:50
[2016-12-29 17:02] VITALS: BP 95/54; PULSE 80; RESP 18; TEMP 97.7; O2SAT 96
[2016-12-29] MEDS: traZODone HCL 100 MG TAB PO SCH (20:48)
[2016-12-30 05:57] VITALS: BP 116/57; PULSE 78; RESP 20; TEMP 97.8; O2SAT 99
[2016-12-30] MEDS: DIVALPROEX SODIUM E.R. 250 MG TAB PO SCH ×2 (08:40→20:40)
[2016-12-30] MEDS: PANTOPRAZOLE SOD 40 MG DELAYED RELEASE TAB PO SCH (08:40)
[2016-12-30] MEDS: SODIUM CHLORIDE 1 GRAM TAB PO SCH ×2 (08:40→08:47)
[2016-12-30] MEDS: DOCUSATE SODIUM 100 MG CAP PO SCH ×2 (08:40→20:42)
[2016-12-30] MEDS: busPIRone HCL 10 MG TAB PO SCH ×3 (08:40→17:32)
[2016-12-30] MEDS: LACTULOSE SYRUP 20 GM/30 ML CUP PO SCH ×2 (08:41→20:42)
[2016-12-30] MEDS: OLANZapine 10 MG TAB PO SCH ×3 (08:41→20:41)
[2016-12-30] MEDS: DIVALPROEX SODIUM E.R. 500 MG TAB PO SCH ×2 (08:41→20:40)
[2016-12-30] MEDS: BACITRACIN TOP OINT 15 GM TUBE TOPICAL SCH ×2 (08:41→21:00)
--- NOTE | 2016-12-30 09:27 | HHI.PYPN ---
Subjective Remarks Patient seen and examined with counselor and nurse. Chart reviewed. Case discussed with nursing staff who reports that the patient has been a little bit cantankerous this morning but not aggressive. On my examination today, the patient seems to be in relatively good spirits. She says that she is doing "fine. I want to go home with Sun if she'll take me." She says "yeah, I'm calm." No psychotic symptoms. No SI or HI. Denies side effects from medications. No physical complaints. Spoke with Sun over the phone. If patient passes a good night, she is willing to take patient home tomorrow. Review of Systems ROS Limitations: Poor Historian Except as stated in HPI: all other systems reviewed are Neg Objective Alert: Yes [place]: Person, Place Mood: Calm, Oppositional (mild) Affect: Euthymic (childlike) Memory Intact: Comment (fair) Hallucinations: Other (no avh) Delusions: No Delusion Type: Other (no delusions) Suicidal: Ideation (No SI) Homicidal: Ideation (No HI) Insight/Judgment Poor Remarks No motor abnormalities noted. Labs Labs reviewed. Ammonia level normalized. Vitals/IOs Vital Signs Date Time Temp Pulse Resp B/P Pulse Ox O2 Delivery O2 Flow Rate FiO2 12/30/16 05:57 97.8 78 20 116/57 99 Assessment & Plan Problem List: (1) Adjustment disorder ICD Code: F43.20 (2) Intellectual disability ICD Code: F79 Assessment & Plan Continue current psychotropics as ordered. Continue to monitor on the inpatient unit. Continue other medications and care as ordered. Justification for Cont. Inpt. Discharge planning Discharge Planning Anticipate discharge tomorrow, Friday Request HC Surrog/Guard Advoc?: Yes Problem Qualifiers (1) Adjustment disorder: Qualified Code: F43.25 - Adjustment disorder with mixed disturbance of emotions and conduct Igor Lawrence MD Dec 30, 2016 09:27
[2016-12-30] MEDS ORDERED: GETGO ROLLING W1 MI1 (10:22)
--- NOTE | 2016-12-30 15:04 | PD.WCN.NOT ---
Wound Consult Description: 12/30/2016 1430:Patient seen on 2700 unit for abdominal wound. Communicated with: Felicia Hendrix to communicate recommendations to Doctor Dean Recommendation: Please cleanse wound to Abdomen with normal saline and apply Xeroform in single layer just over wound bed. Apply skin prep to periwound before applying bordered gauze. Change dressing daily. Additional Information: Patient seen on 2700 psych unit for evaluation of Abdominal wound.Patient assessed with the assistance of Felicia [place] psych, conventional mortgage underwriter and VINNIE Chahal OFFICE RECEPTIONIST. Removed gauze pad dressing in place to reveal wound with 100% pink tissue that is partial thickness. Periwound appears slightly erythematous without heat or induration.Wound drainage is minimal and sero-sanguinous without odor. Wound margins are jagged. Patient refuses to explain how or when wound occurred. States," Its going to be my little secret". Cleansed wound with wound cleanser and applied single layer Xeroform dressing just over wound bed and skin prep applied to periwound before applying bordered gauze in place [facility] Dec 30, 2016 15:04
[2016-12-30 17:58] VITALS: BP 103/67; PULSE 92; RESP 18; TEMP 97.9; O2SAT 99
[2016-12-30] MEDS: traZODone HCL 100 MG TAB PO SCH (20:41)
[2016-12-30] MEDS: ACETAMINOPHEN 325 MG TAB PO PRN (22:44)
[2016-12-31 06:01] VITALS: BP 106/54; PULSE 74; RESP 18; TEMP 97.7; O2SAT 98
[2016-12-31] MEDS: SODIUM CHLORIDE 1 GRAM TAB PO SCH (09:00)
[2016-12-31] MEDS: OLANZapine 10 MG TAB PO SCH ×2 (09:00→15:00)
[2016-12-31] MEDS: PANTOPRAZOLE SOD 40 MG DELAYED RELEASE TAB PO SCH (09:21)
[2016-12-31] MEDS: DIVALPROEX SODIUM E.R. 500 MG TAB PO SCH (09:21)
[2016-12-31] MEDS: LACTULOSE SYRUP 20 GM/30 ML CUP PO SCH (09:21)
[2016-12-31] MEDS: DIVALPROEX SODIUM E.R. 250 MG TAB PO SCH (09:21)
[2016-12-31] MEDS: BACITRACIN TOP OINT 15 GM TUBE TOPICAL SCH (09:21)
[2016-12-31] MEDS: DOCUSATE SODIUM 100 MG CAP PO SCH (09:22)
[2016-12-31] MEDS: busPIRone HCL 10 MG TAB PO SCH ×2 (09:22→13:04)
[2016-12-31] MEDS ORDERED: BACI500O2 TOPICAL (12:54)
[2016-12-31] MEDS ORDERED: DEPA500T3 PO (12:54)
[2016-12-31] MEDS ORDERED: Chlorpromazine PO (12:54)
[2016-12-31] MEDS ORDERED: DOCU1CAP39 PO (12:54)
[2016-12-31] MEDS ORDERED: Lactulose Liq PO (12:54)
[2016-12-31] MEDS ORDERED: OLAN10TA PO (12:54)
[2016-12-31] MEDS ORDERED: PANT40TA3 PO (12:54)
[2016-12-31] MEDS ORDERED: DIVA250ER PO (12:54)
[2016-12-31] MEDS ORDERED: TRAZ50TA12 PO (12:54)
--- NOTE | 2016-12-31 12:54 | HHI.DS ---
Psychiatry Discharge Summary Inpatient Psychiatric care?: Yes Advance Directive: No Reason Not Provided: DOES NOT HAVE Mental Health AdvanceDirective: No Health Care Proxy: No Admission Admission Date Dec 12, 2016 at 14:40 Admission Diagnosis: (1) Adjustment disorder ICD Code: F43.20 (2) Intellectual disability ICD Code: F79 Brief History Ms. Rodriguez is a 56-year-old female with a history of intellectual disability and associated adjustment issues who returns from the medical floor, to which she was admitted with severe hyponatremia. Patient was followed on the medical floor by Dr. Stafford. EMR reviewed. Patient seen and examined with counselor and nurse. Chart reviewed. Case discussed with RN, who reports patient has been upset and belligerent because her family did not visit her on the medical unit, particularly for her birthday yesterday. She is noted to have a more steady gait per RN. On my examination today, patient presents as irritable, dysphoric and perseverative. She describes her mood as "angry! I don't trust my niece farther than I can throw her." She is angry that her niece wants her places. She tells me, "I don't care about nothing! I just want to kill myself because I'm angry!" No reported suicide plan. No reported urge to hurt self on the unit." Denies AVH. No delusions. Insight into disruptiveness of acting out behaviors is poor. "You just don't understand what I'm going through!" No side effects from medications. No physical complaints. Patient remains a poor historian for past psych hx, family hx, chem dep hx, and social hx. Tobacco Use In Past 30 Days: No Tobacco Past 30 Days Alcohol Use: Never Hospital Course Patient was admitted to a locked, inpatient psychiatric unit. Appropriate precautions were in place throughout patient's hospital stay. Hospitalist consultation obtained. Patient seen and examined on the unit by psychiatry and also visited by counselor. Psychotropic medications adjusted. Patient tolerated medication changes well without side effects. Patient noted to be quite childlike on the unit and presentation was largely behavioral. The frequency and severity of patient's outbursts and self-injurious behavior lessened during the course of her hospital stay. On the day of discharge: Patient seen and examined with counselor and OT. Chart reviewed. Case discussed in treatment team. For me today, patient is in good spirits. She is looking forward to returning home with her niece. She says, "I behave myself this time." Mood is good, no affective symptoms. No psychotic symptoms. Denies suicidal or homicidal ideation, intent or plan. No medication side effects. No physical complaints. Patient is a chronic risk for harm to self/ others as a consequence of impulsivity related to her intellectual disability, but I industrial real estate agent that patient is at lower imminent risk at this point after weighing the relevant factors. She has maximized benefit from this inpatient psychiatric hospital stay and will be discharged back in to her niece's care today with psychiatric follow-up as arranged by counselor. Patient is also follow-up with primary care. Patient to return to psychiatric emergency room for any concerning psychiatric symptoms. Results Blood Pressure 106 / 54 Vital Signs Date Time Temp Pulse Resp B/P Pulse Ox O2 Delivery O2 Flow Rate FiO2 12/31/16 06:01 97.7 74 18 106/54 98 Item Value Date Time White Blood Count 4.8 TH/MM3 12/24/16 1739 Hemoglobin 10.4 GM/DL L 12/24/16 1739 Platelet Count 175 TH/MM3 12/24/16 1739 Sodium Level 138 MEQ/L 12/24/16 1739 Potassium Level 4.1 MEQ/L 12/24/16 1739 Chloride Level 101 MEQ/L 12/24/16 1739 Carbon Dioxide Level 28.1 MEQ/L 12/24/16 1739 Blood Urea Nitrogen 15 MG/DL 12/24/16 1739 Creatinine 0.71 MG/DL 12/24/16 1739 Random Glucose 142 MG/DL H 12/24/16 1739 Aspartate Amino Transf (AST/SGOT) 12 U/L L 12/22/16 0818 Alanine Aminotransferase (ALT/SGPT) 16 U/L 12/22/16 0818 Alkaline Phosphatase 84 U/L 12/22/16 0818 Ammonia 24 MCMOL/L 12/30/16 1013 Lipase 146 U/L 12/22/16 0818 Valproic Acid (Depakene) Level 70 MCG/ML 12/24/16 1739 Summary of Procedures None done Imaging Last Impressions Abdomen/Pelvis CT 12/21/16 0000 Signed Impressions: Service Date/Time: Thursday, December 22, 2016 00:02 - CONCLUSION: 1. Status post cholecystectomy. 2. No acute inflammatory process. 3. Status post hysterectomy. 4. Few scattered diverticula without diverticulitis. Michel Vargas MD Pending results at discharge: No Medications # of Antipsychotic meds at D/C: 2 Appropriate >1 Antipsych meds?: 4 Approp Antipsych med options 1 - Minimum of three failed multiple trials of monotherapy. 2 - Documented plan to taper to monotherapy due to previous use of multiple meds OR cross-taper in progress at D/C. 3 - Documentation of augmentation of Clozapine. 4 - Justification other than those listed in allowable values 1-3, document here : Multiple antipsychotics required for stabilization Discharge Discharge Date: Dec 31, 2016 Discharge Diagnosis: (1) Adjustment disorder Diagnosis: Principal (resolved) ICD Code: F43.20 (2) Intellectual disability Diagnosis: Secondary (chronic) ICD Code: F79 Mental Status Exam at Disch Patient casually dressed. She is fairly well groomed and maintaining basic hygiene. She is awake and alert and oriented to person and hospital at least. No motor abnormalities noted. Speech is within normal limits for rate, tone and volume. Mood is good and affect is euthymic and childlike. Thought process generally linear. No loosening of associations. No delusions. No audiovisual hallucinations. Denies suicidal or homicidal ideation, intent or plan. Insight and judgment are chronically poor. Pt Condition on Discharge: Stable Discharge Disposition: Discharge Home Discharge Instructions Diet Instructions: As Tolerated, No Restrictions Activities you can perform: Weight Bearing as Windy Scheduled Appointment: as per counselor's notes New Medications: Walker Rolling/GetGo (Walker Rolling/GetGo) 1 Mis Mis 1 EA .ROUTE DIRECTED #1 EA Bacitracin Topical (Bacitracin Topical) 500 Unit/Gm Oint 1 APPLIC TOPICAL BID Stomach lesion Days 10 Ref 1 TUBE Divalproex ER (Depakote ER) 500 Mg Jennifer 500 MG PO BID Mental Health Days 15 Ref 1 TAB Divalproex ER (Depakote ER) 250 Mg Jennifer 250 MG PO BID Mental Health Days 15 Ref 1 TAB Docusate Sodium (Dok) 100 Mg Cap 100 MG PO BID Constipation Days 15 Ref 1 CAP Olanzapine (Olanzapine) 10 Mg Tab 10 MG PO DAILY@09,15,21 Mental Health Days 15 Ref 1 TAB Pantoprazole (Pantoprazole) 40 Mg Tab 40 MG PO DAILY Health Days 15 Ref 1 TAB Trazodone (Trazodone) 50 Mg Tab 150 MG PO HS Sleep Days 15 Ref 1 TAB ([Chlorpromazine]) 100 MG TAB 100 MG PO DAILY@09,13,21 Mental Health Days 15 Ref 1 TAB ([Lactulose Liq]) 30 ML SYRP 30 ML PO BID Hyperammonemia Days 15 Ref 1 ML Continued Medications: Buspirone (Buspirone) 10 Mg Tab 10 MG PO TID Anxiety Ref 0 TAB Sodium Chloride (Sodium Chloride) 1 Gm Tab 1 GM PO BID hyponatremia Days 5 Ref 0 TAB Discontinued Medications: Divalproex ER (Depakote ER) 500 Mg Jennifer 500 MG PO BID schizophrenia Days 30 Ref 0 TAB Olanzapine (Olanzapine) 10 Mg Tab 10 MG PO Q12HR schizophrenia Days 30 Ref 0 TAB Ziprasidone (Geodon) 40 Mg Cap 40 MG PO BIDPC schizophrenia Days 30 Ref 0 CAP ([Benztropine]) 1 MG TAB 1 MG PO Q12HR schizophrenia Days 30 Ref 0 TAB Discharge Time <= 30 minutes Discharge/Advance Care Plan Health Problems: (1) Adjustment disorder (2) Intellectual disability Goals to promote your health * To prevent worsening of your condition and complications * To maintain your health at the optimal level Directions to meet your goals Take your medications as prescribed Follow your dietary instruction Follow activity as directed Keep your appointments as scheduled Take your immunizations and boosters as scheduled If your symptoms worsen call your PCP, if no PCP go to Urgent Care Center or Emergency Room For 06/01 questions related to your inpatient stay or results of tests pending at discharge, please contact Dr. Igor Lawrence at Smoking is Dangerous to Your Health. Avoid second hand smoking Problem Qualifiers (1) Adjustment disorder: Qualified Code: F43.25 - Adjustment disorder with mixed disturbance of emotions and conduct Igor Lawrence MD Dec 31, 2016 12:54
== END 2016-12-31 17:00 | disposition home or self-care (01) | DRG 882 ==
LOC: H270 14:40
PROVIDERS: ADMIT Psychiatry & Neurology Psychiatry; ATTEND Psychiatry & Neurology Psychiatry
DX: F43.20 Adjustment disorder, unspecified (principal); E87.1 Hypo-osmolality and hyponatremia; I10 Essential (primary) hypertension; F79 Unspecified intellectual disabilities; E11.9 Type 2 diabetes mellitus without complications; Z91.81 History of falling; R10.13 Epigastric pain; M25.562 Pain in left knee; G89.29 Other chronic pain
CPT/HCPCS: 74177; 80048; 80053; 80164; 82140; 83690; 83735; 85007; 85025; 85027; J0515; J1200; J1630; J2060; Q0169; Q9963; Q9967